=== PATIENT | female | born 1945 | race Caucasian/White ===

== ENCOUNTER 2016-09-02 09:57 | Outpatient (CLI) | payer MEDICARE, BC | END 2016-09-02 09:58 | disposition home or self-care (01) | DX: M85.89 Other specified disorders of bone density and structure, multiple sites (principal) ==

== ENCOUNTER 2016-10-06 08:05 | Outpatient (CLI) | payer MEDICARE, BC | END 2016-10-06 08:06 | disposition home or self-care (01) | DX: D64.9 Anemia, unspecified (principal); E03.9 Hypothyroidism, unspecified; E04.2 Nontoxic multinodular goiter; K21.9 Gastro-esophageal reflux disease without esophagitis ==

== ENCOUNTER 2016-10-22 14:51 | Outpatient (CLI) | payer MEDICARE, BC | END 2016-10-22 14:52 | disposition home or self-care (01) | DX: I80.9 Phlebitis and thrombophlebitis of unspecified site (principal) ==

== ENCOUNTER 2016-11-17 13:09 | Outpatient (CLI) | payer MEDICARE, BC | END 2016-11-17 13:10 | disposition home or self-care (01) | DX: M17.12 Unilateral primary osteoarthritis, left knee (principal) ==

== ENCOUNTER 2017-02-27 07:24 | Outpatient (CLI) | payer MEDICARE, BC | END 2017-02-27 07:25 | disposition home or self-care (01) | LOC: LAB.WCP 07:24 | PROVIDERS: ATTEND Physician Assistant Medical | DX: N39.0 Urinary tract infection, site not specified (principal) | CPT/HCPCS: 87086 ==

== ENCOUNTER 2017-03-18 12:29 | Outpatient (CLI) | payer MEDICARE, BC ==
--- NOTE | 2017-03-19 12:47 | MRI Report ---
EXAM: RIGHT KNEE MRI WITHOUT CONTRAST EXAM DATE: 03/18/2017 01:11 PM. CLINICAL HISTORY: Trauma to the right knee 5 weeks ago. Posterior and medial pain. COMPARISON: None. TECHNIQUE: Multiplanar, multisequence T1-weighted and fluid-sensitive sequences of the knee without c ontrast. Other: None. FINDINGS: Bones: There is a subchondral low T1, high T2 signal line in the anteromedial aspect of the medial ti bial condyle and marked surrounding marrow edema consistent with a nondisplaced fracture. There are s mall foci of high T2 signal in the subchondral bone of the patella and femoral trochlea consistent wi th degenerative change.. Articular Cartilage: There is moderate thinning of the hyaline cartilage of the patella and femoral t rochlea. There is mild thinning of the medial compartment cartilage. There is minimal surface irregul arity of the lateral compartment cartilage. Medial Meniscus: The medial meniscus is intact. Lateral Meniscus: The lateral meniscus is intact. Cruciate Ligaments: The anterior and posterior cruciate ligaments are intact. Collateral Ligaments: The medial collateral and lateral collateral ligamentous structures are intact. Tendons: The quadriceps and patellar tendon appear unremarkable. There is thickening and increased T2 signal in the semimembranosus tendon suggestive of tendinosis. Musculature: No edema or fatty atrophy. Other: Small joint effusion. Fluid has leaked into the soft tissues of the calf consistent with a norma ciarra Kelley's cyst.. No loose bodies. The medial and lateral retinacula are intact. The subcutaneous tissues and fat pads are unremarkable. IMPRESSION: 1. Nondisplaced fracture of the anteromedial aspect of the medial tibial condyle. 2. Joint effusion with a leaking Kelley's cyst. 3. Findings suggestive of tendinosis of the semimembranosus. [facility] MUSCULOSKELETAL RADIOLOGY SECTION Referring Provider Line: [phone] SITE ID: [id number]
== END 2017-03-18 12:30 | disposition home or self-care (01) ==
LOC: DI 12:29
PROVIDERS: ATTEND Physician Assistant Medical
DX: S82.134A Nondisplaced fracture of medial condyle of right tibia, initial encounter for closed fracture (principal); M25.461 Effusion, right knee; M71.21 Synovial cyst of popliteal space [Baker], right knee

== ENCOUNTER 2017-08-29 08:00 | Outpatient (CLI) | payer MEDICARE, BC ==
[2017-08-29 12:43] LABS: BASOPHILS % (AUTO) 1.3 %; EOSINOPHILS # (AUTO) 0.1 10^3/uL (0.0-0.7); EOSINOPHILS % (AUTO) 3.9 %; HGB - HEMOGLOBIN 12.7 g/dL (12.0-16.0); LYMPHOCYTES # (AUTO) 0.8 10^3/uL (1.5-3.5); LYMPHOCYTES % (AUTO) 21.9 %; MEAN CORPUSCULAR HEMOGLOBIN 29.3 pg (27.0-31.0); MEAN CORPUSCULAR VOLUME 81.4 fL (81.0-99.0); MEAN PLATELET VOLUME 8.5 fL (7.9-10.8); MONOCYTES # (AUTO) 0.4 10^3/uL (0.0-1.0); MONOCYTES % (AUTO) 10.8 %; NEUTROPHILS # (AUTO) 2.2 10^3/uL (1.5-6.6); NEUTROPHILS % (AUTO) 62.1 %; PLT - PLATELET COUNT 162 10^3/uL (130-450); RED BLOOD COUNT 4.33 10^6/uL (4.20-5.40); RED CELL DISTRIBUTION WIDTH 13.7 % (12.0-15.0); WHITE BLOOD COUNT 3.5 x10^3/uL (4.8-10.8)
[2017-08-29 13:13] LABS: ALBUMIN/GLOBULIN RATIO 1.3 (1.0-2.2); ALKALINE PHOSPHATASE 72 IU/L (42-121); ALT ALANINE AMINOTRANSFERASE 14 IU/L (10-60); AST ASPARTATE AMINOTRANSFERASE 18 IU/L (10-42); BILIRUBIN,TOTAL 0.6 mg/dL (0.2-1.0); BUN - BLOOD UREA NITROGEN 17 mg/dL (6-20); CALCIUM 8.6 mg/dL (8.5-10.3); CARBON DIOXIDE - CO2 27 mmol/L (21-32); CHLORIDE 105 mmol/L (101-111); CHOL/HDL RATIO 2.2 (<4.4); CHOLESTEROL 140 mg/dL; CREATININE 0.7 mg/dL (0.4-1.0); GFR - MDRD 82 (>89); GLUCOSE 98 mg/dL (70-100); HDL CHOLESTEROL 65 mg/dL; LDL CHOLESTEROL,CALCULATED 65 mg/dL; SODIUM 137 mmol/L (135-145); TOTAL PROTEIN 7.2 g/dL (6.7-8.2); VLDL CHOLESTEROL 10 mg/dL
== END 2017-08-29 08:01 | disposition home or self-care (01) ==
LOC: LAB.WCP 08:00
PROVIDERS: ATTEND Family Medicine
DX: I10 Essential (primary) hypertension (principal); D64.9 Anemia, unspecified
CPT/HCPCS: 36415; 80053; 80061; 85025

== ENCOUNTER 2017-10-05 08:00 | Outpatient (CLI) | payer MEDICARE, BC ==
[2017-10-05 18:44] LABS: BASOPHILS % (AUTO) 1.4 %; EOSINOPHILS # (AUTO) 0.2 10^3/uL (0.0-0.7); EOSINOPHILS % (AUTO) 5.7 %; HGB - HEMOGLOBIN 12.7 g/dL (12.0-16.0); LYMPHOCYTES # (AUTO) 0.9 10^3/uL (1.5-3.5); LYMPHOCYTES % (AUTO) 24.3 %; MEAN CORPUSCULAR HEMOGLOBIN 28.5 pg (27.0-31.0); MEAN CORPUSCULAR HGB CONC 32.5 g/dL (32.0-36.0); MEAN CORPUSCULAR VOLUME 87.8 fL (81.0-99.0); MEAN PLATELET VOLUME 9.3 fL (7.9-10.8); MONOCYTES # (AUTO) 0.4 10^3/uL (0.0-1.0); MONOCYTES % (AUTO) 11.3 %; NEUTROPHILS % (AUTO) 57.3 %; PLT - PLATELET COUNT 177 10^3/uL (130-450); RED BLOOD COUNT 4.47 10^6/uL (4.20-5.40); RED CELL DISTRIBUTION WIDTH 14.3 % (12.0-15.0); WHITE BLOOD COUNT 3.6 x10^3/uL (4.8-10.8)
[2017-10-05 18:58] LABS: ALBUMIN 3.9 g/dL (3.2-5.5); ALBUMIN/GLOBULIN RATIO 1.3 (1.0-2.2); ALKALINE PHOSPHATASE 76 IU/L (42-121); ALT ALANINE AMINOTRANSFERASE 15 IU/L (10-60); AST ASPARTATE AMINOTRANSFERASE 23 IU/L (10-42); BILIRUBIN,TOTAL 0.7 mg/dL (0.2-1.0); BUN - BLOOD UREA NITROGEN 11 mg/dL (6-20); CALCIUM 8.4 mg/dL (8.5-10.3); CARBON DIOXIDE - CO2 29 mmol/L (21-32); CHLORIDE 102 mmol/L (101-111); CREATININE 0.8 mg/dL (0.4-1.0); GFR - MDRD 70 (>89); GLUCOSE 112 mg/dL (70-100); SODIUM 139 mmol/L (135-145); TOTAL PROTEIN 6.9 g/dL (6.7-8.2)
== END 2017-10-05 08:01 | disposition home or self-care (01) ==
LOC: LAB.WCP 08:00
PROVIDERS: ATTEND Family Medicine
DX: R06.00 Dyspnea, unspecified (principal)
CPT/HCPCS: 36415; 80053; 84443; 84484; 85025; 85379

== ENCOUNTER 2017-10-06 13:22 | Outpatient (CLI) | payer MEDICARE, BC ==
[2017-10-06] MEDS ORDERED: IOPAMIDOL-300 100 ML VIAL ONE (15:18)
[2017-10-06] MEDS ORDERED: IOPAMIDOL-300 100 ML VIAL IVP ONE (16:00)
--- NOTE | 2017-10-06 16:27 | CT Report ---
EXAM: CT ANGIOGRAM CHEST EXAM DATE: 10/06/2017 03:47 PM. CLINICAL HISTORY: CHEST PAIN. Exertional dyspnea for one week. COMPARISON: None. TECHNIQUE: Routine helical imaging was performed through the chest in the pulmonary arterial phase. I V Contrast: 80 cc of Isovue 300. Reconstructions: Coronal 3-D MIP reconstructions.Sagittal and berkowitz l. In accordance with CT protocol optimization, one or more of the following dose reduction techniques w ere utilized for this exam: automated exposure control, adjustment of mA and/or KV based on patient s ize, or use of iterative reconstructive technique. FINDINGS: Pulmonary Arteries: Diagnostic quality: Adequate through the segmental arteries. No evidence for acute or chronic pulmona ry emboli. RV/LV is within normal limits. There is no interventricular septal bowing. There is reflux of contras t material in the IVC. Lungs/Pleura: 4 mm Right Upper Lobe Nodule, Image 32 Series 5. 5 mm Right Lower Lobe Nodule, Image 66 Series 5. No consolidation or edema. No effusions or pneumothorax. Mediastinum: Minimal aortic and coronary artery calcification. No cardiac enlargement or adenopathy. Thoracic Aorta: Unremarkable. Upper Abdomen: Unremarkable. Other: 6 mm right thyroid nodule noted. IMPRESSION: 1. No pulmonary emboli. 2. No aortic aneurysm. 3. 2 right-sided pulmonary nodules noted. Recommend follow-up of the described nodule(s) according to the following guidelines: Fleischner Society Recommendations 2017 MacMahon et al. Radiology 2017 Solid Nodules-Low Risk Patients: <6 mm (single or multiple) - No routine follow-up* Solid Nodules-High Risk Patients: <6 mm (single or multiple) -Optional CT at 12 months* Subsolid nodules: <6 mm (single, GG or part solid) -No routine follow-up [facility] Referring Provider Line: [phone] SITE ID: [id number]
--- NOTE | 2017-10-06 16:58 | Ultrasound Report ---
EXAM: BILATERAL LOWER EXTREMITY VENOUS ULTRASOUND EXAM DATE: 10/06/2017 04:05 PM. CLINICAL HISTORY: Lower extremity swelling. COMPARISON: None. TECHNIQUE: Real-time sonographic vascular imaging was performed by the drop forger helper through the lower extremities utilizing both color-flow and Doppler spectral analysis. Multiple inventory representative static i mages were saved for review. FINDINGS: Right: Common Femoral Vein (CFV): Normal. CFV-GSV Junction: Normal. Profunda Femoral Vein (PFV): Normal. Femoral Vein (FV) Prox: Normal. Femoral Vein (FV) Mid: Normal. Femoral Vein (FV) Dist: Normal. Popliteal Vein: Normal. Posterior Tibial Veins: Normal. Peroneal Veins: Normal. Left: Common Femoral Vein (CFV): Normal. CFV-GSV Junction: Normal. Profunda Femoral Vein (PFV): Normal. Femoral Vein (FV) Prox: Normal. Femoral Vein (FV) Mid: Normal. Femoral Vein (FV) Dist: Normal. Popliteal Vein: Normal. Posterior Tibial Veins: Normal. Peroneal Veins: Normal. Other: None. IMPRESSION: No evidence for deep venous thrombosis bilaterally. [facility] Referring Provider Line: [phone] SITE ID: [id number]
== END 2017-10-06 13:23 | disposition home or self-care (01) ==
LOC: DI 13:22
PROVIDERS: ATTEND Family Medicine
DX: R91.8 Other nonspecific abnormal finding of lung field (principal)
CPT/HCPCS: 71275; 93970; Q9967

== ENCOUNTER 2017-11-21 10:37 | Outpatient (CLI) | payer MEDICARE, BC ==
--- NOTE | 2017-11-22 12:22 | Mammography Report ---
DIGITAL SCREENING MAMMOGRAM: 11/21/2017 CLINICAL INDICATION: A 72-year-old with history of benign left breast biopsy for screening. COMPARISON: 05/2016, 03/2015, 03/2014, 03/2013, 02/2012, 02/2011, 02/2010. TECHNIQUE: Routine CC and MLO projections were obtained of the breasts. FINDINGS: The breasts again demonstrate heterogeneously dense fibroglandular parenchyma bilaterally. Coarse and punctate, typically benign calcifications are present. Postbiopsy changes in the left breast are stable. No suspicious masses, clustered microcalcifications or regions of architectural distortion are identified. IMPRESSION: BENIGN FINDINGS. RECOMMENDATION: Routine annual screening unless otherwise clinically indicated. BIRADS CATEGORY 2 - BENIGN FINDINGS. STANDARD QUALIFYING STATEMENTS: 1. This examination was reviewed with the aid of Computer-Aided Detection (CAD). 2. A negative or benign imaging report should not delay biopsy if clinically suspicious findings are present. Consider surgical consultation if warranted. More than 5% of cancers are not identified by imaging. 3. Dense breasts may obscure an underlying neoplasm. TD: 11/22/2017 12:21
== END 2017-11-21 10:38 | disposition home or self-care (01) ==
LOC: DI 10:37
PROVIDERS: ATTEND Family Medicine
DX: Z12.31 Encounter for screening mammogram for malignant neoplasm of breast (principal)
CPT/HCPCS: 77067

== ENCOUNTER 2017-12-31 20:14 | Emergency (ER) | payer MEDICARE, BC ==
[2017-12-31 20:22] VITALS: BP 158/59
[2017-12-31 20:41] LABS: BILIRUBIN,URINE NEGATIVE (NEGATIVE); GLUCOSE, URINE (UA) NEGATIVE (NEGATIVE); KETONES,URINE (UA) NEGATIVE (NEGATIVE); LEUKOCYTE ESTERASE, URINE MODERATE (NEGATIVE); NITRITE,URINE NEGATIVE (NEGATIVE); OCCULT BLOOD,URINE LARGE (NEGATIVE); PROTEIN,URINE 30 mg/dL (NEGATIVE); UROBILINOGEN,URINE 0.2 (NORMAL) E.U./dL (NORMAL)
[2017-12-31 20:43] LABS: CLARITY,URINE HAZY (CLEAR)
--- NOTE | 2017-12-31 20:44 | ED Physician Documentation ---
PD HPI FEMALE - Stated complaint Stated Complaint: FEMALE - Chief complaint Chief Complaint: UTI - History obtained from History obtained from: Patient - History of Present Illness Timing - onset: Today (72-year-old woman with urinary frequency and dysuria today, she notes no flank pain or nausea or chills.) Review of Systems Constitutional: denies: Fever, Chills GI: denies: Abdominal Pain, Nausea, Vomiting : reports: Dysuria, Frequency, Hematuria PD PAST MEDICAL HISTORY - Past Medical History Cardiovascular: Hypertension, High cholesterol, [place] Endocrine/Autoimmune: HyPOthyroidism - Past Surgical History Past Surgical History: Yes 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 - Present Medications Home Medications: Ambulatory Orders Medication Instructions Recorded Confirmed Aspirin Chewable [St Fritz 81 mg PO DAILY 07/07/13 05/31/16 Aspirin] Atenolol [Tenormin] 25 mg PO DAILY 07/07/13 05/31/16 Levothyroxine Sodium [Levothroid] 75 mcg PO DAILY 07/07/13 05/31/16 Lisinopril 5 mg PO DAILY 07/07/13 05/31/16 Nitroglycerin [Nitrostat] 0.4 mg SL Q5MIN PRN 07/07/13 05/31/16 Cholecalciferol (Vitamin D3) 2,000 unit PO 10/20/13 12/30/14 [Vitamin D-3] Estradiol [Vagifem] 10 mcg VG 10/20/13 12/30/14 Flaxseed Oil [Flax Oil] 1,000 mg PO 10/20/13 12/30/14 Pravastatin Sodium 40 mg PO DAILY 10/20/13 05/31/16 Lidocaine Viscous 2% [Xylocaine 5 ml MM Q4H PRN #1 bottle 05/31/16 Viscous 2%] Omeprazole [PriLOSEC] 20 mg PO DAILY #14 capsule 05/31/16 Cephalexin [Keflex] 500 mg PO QID #20 capsule 12/31/17 Phenazopyridine HCl [Pyridium] 200 mg PO TID #6 tablet 12/31/17 - Allergies Allergies/Adverse Reactions: Allergies Allergy/AdvReac Type Severity Reaction Status Date / Time ibuprofen Allergy Intermediate upset Verified 05/31/16 00:57 stomach - Social History Does the pt smoke?: No Smoking Status: Never smoker Does the pt drink ETOH?: No Does the pt have substance abuse?: No - Immunizations Immunizations are current?: Yes - POLST Patient has POLST: No PD ED PE NORMAL - Vitals Vital signs reviewed: Yes - General General: Alert and oriented X 3, No acute distress - Cardiac Cardiac: RRR, No murmur - Respiratory Respiratory: No respiratory distress, Clear bilaterally - Abdomen Abdomen: Normal bowel sounds, Soft, Non tender - Back Back: Other (She has mild left flank tenderness) - Neuro Neuro: Alert and oriented X 3, Normal speech - Psych Psych: Normal mood, Normal affect Results - Vitals Vitals: Vital Signs - 24 hr 12/31/17 20:20 Temperature 36.5 C Heart Rate 94 Respiratory 18 Rate Blood Pressure 158/59 H O2 Saturation 99 Oxygen O2 Source Room air - Labs Labs: Laboratory Tests 12/31/17 20:20 Urine Color RED/BLOODY Urine Clarity HAZY Urine pH 6.0 Ur Specific [place] 1.020 Urine Protein 30 H Urine Glucose (UA) NEGATIVE Urine Ketones NEGATIVE Urine Occult Blood LARGE H Urine Nitrite NEGATIVE Urine Bilirubin NEGATIVE Urine Urobilinogen 0.2 (NORMAL) Ur Leukocyte Esterase MODERATE H Urine RBC TNTC H Urine WBC >25 H Urine WBC Clumps PRESENT Ur Squamous Epith Cells RARE Squamous Urine Crystals 0-2 Uric Acid Urine Bacteria Rare Ur Microscopic Review INDICATED Urine Culture Comments INDICATED Departure - Departure Disposition: 01 Home, Self Care Clinical Impression: Cystitis, Essential hypertension Condition: Good Record reviewed to determine appropriate education?: Yes Instructions: ED UTI Cystitis Female Prescriptions: Cephalexin [Keflex] 500 mg PO QID #20 capsule Phenazopyridine HCl [Pyridium] 200 mg PO TID #6 tablet Comments: We will culture your urine, the results should be done in 48-72 hours. If an antibiotic change is necessary we will call you. Return if worse in the meantime, especially if you develop increasing flank pain, fevers, or cannot keep down the medication. Discharge Date/Time: 12/31/17 21:05
[2017-12-31] MEDS ORDERED: PHENAZOPYRIDINE 100 MG TABLET PO STA (20:47)
[2017-12-31] MEDS ORDERED: CEPHALEXIN 250 MG Prepack 8 PO ONE (20:52)
[2017-12-31 21:02] LABS: BACTERIA,URINE Rare /HPF (None Seen); RBC,URINE TNTC /HPF (0-5); SQUAMOUS EPITHELIAL CELL,UR RARE Squamous (<= Few); WBC CLUMPS,URINE PRESENT
[2017-12-31 21:03] LABS: CRYSTALS,URINE 0-2 Uric Acid /LPF
== END 2017-12-31 21:05 | disposition home or self-care (01) ==
LOC: ED 20:14
DX: N30.90 Cystitis, unspecified without hematuria (principal); I10 Essential (primary) hypertension; E78.00 Pure hypercholesterolemia, unspecified; I25.2 Old myocardial infarction
CPT/HCPCS: 81001; 87086; 87181; 99283; A9270; 81003

== ENCOUNTER 2018-04-18 13:11 | Emergency (ER) | payer MEDICARE, BC ==
[2018-04-18 13:18] VITALS: BP 129/88
[2018-04-18 13:56] LABS: BILIRUBIN,URINE NEGATIVE (NEGATIVE); GLUCOSE, URINE (UA) NEGATIVE (NEGATIVE); KETONES,URINE (UA) NEGATIVE (NEGATIVE); LEUKOCYTE ESTERASE, URINE SMALL (NEGATIVE); NITRITE,URINE NEGATIVE (NEGATIVE); OCCULT BLOOD,URINE LARGE (NEGATIVE); PROTEIN,URINE 100 mg/dL (NEGATIVE); UROBILINOGEN,URINE 0.2 (NORMAL) E.U./dL (NORMAL)
[2018-04-18 13:57] LABS: CLARITY,URINE CLOUDY (CLEAR)
--- NOTE | 2018-04-18 13:58 | ED Physician Documentation ---
PD HPI FEMALE - Stated complaint Stated Complaint: FEMALE - Chief complaint Chief Complaint: UTI - History obtained from History obtained from: Patient - History of Present Illness Timing - onset: Today Timing - duration: Days (1) Timing - details: Gradual onset Pain level max: 3 Pain level max: 3 Associated symptoms: Dysuria, Urinary frequency. 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 - Present Medications Home Medications: Ambulatory Orders Medication Instructions Recorded Confirmed Aspirin Chewable [St Fritz 81 mg PO DAILY 07/07/13 05/31/16 Aspirin] Atenolol [Tenormin] 25 mg PO DAILY 07/07/13 05/31/16 Levothyroxine Sodium [Levothroid] 75 mcg PO DAILY 07/07/13 05/31/16 Lisinopril 5 mg PO DAILY 07/07/13 05/31/16 Nitroglycerin [Nitrostat] 0.4 mg SL Q5MIN PRN 07/07/13 05/31/16 Cholecalciferol (Vitamin D3) 2,000 unit PO 10/20/13 12/30/14 [Vitamin D-3] Flaxseed Oil [Flax Oil] 1,000 mg PO 10/20/13 12/30/14 Pravastatin Sodium 40 mg PO DAILY 10/20/13 05/31/16 Omeprazole [PriLOSEC] 20 mg PO DAILY #14 capsule 05/31/16 Cephalexin [Keflex] 500 mg PO Q6H #20 capsule 04/18/18 Phenazopyridine HCl [Pyridium] 200 mg PO TID PRN #6 tablet 04/18/18 - Allergies Allergies/Adverse Reactions: Allergies Allergy/AdvReac Type Severity Reaction Status Date / Time ibuprofen Allergy Intermediate upset Verified 04/18/18 13:18 stomach - Social History Does the pt smoke?: No Smoking Status: Never smoker Does the pt drink ETOH?: No Does the pt have substance abuse?: No - Immunizations Immunizations are current?: Yes - POLST Patient has POLST: No PD ED PE NORMAL - Vitals Vital signs reviewed: Yes - General General: Alert and oriented X 3, No acute distress - HEENT HEENT: Moist mucous membranes - Neck Neck: Supple, no meningeal sign - Cardiac Cardiac: RRR - Respiratory Respiratory: No respiratory distress, Clear bilaterally - Abdomen Abdomen: Soft, Non tender, Non distended - Back Back: No CVA TTP - Derm Derm: Warm and dry - Neuro Neuro: Alert and oriented X 3 - Psych Psych: Normal mood, Normal affect Results - Vitals Vitals: Vital Signs - 24 hr 04/18/18 13:15 Temperature 37.1 C Heart Rate 73 Respiratory 16 Rate Blood Pressure 129/88 H O2 Saturation 96 Oxygen O2 Source Room air - Labs Labs: Laboratory Tests 04/18/18 13:30 Urine Color YELLOW Urine Clarity CLOUDY Urine pH 6.0 Ur Specific [place] 1.025 Urine Protein 100 H Urine Glucose (UA) NEGATIVE Urine Ketones NEGATIVE Urine Occult Blood LARGE H Urine Nitrite NEGATIVE Urine Bilirubin NEGATIVE Urine Urobilinogen 0.2 (NORMAL) Ur Leukocyte Esterase SMALL H Urine RBC TNTC H Urine WBC >25 H Ur Squamous Epith Cells NONE SEEN Urine Bacteria Moderate H Ur Microscopic Review INDICATED Urine Culture Comments INDICATED PD MEDICAL DECISION MAKING - ED course Complexity details: reviewed results, considered differential, d/w patient ED course: Patient is a 72-year-old female with a UTI. She is well-appearing, nontoxic. Afebrile. No evidence of pyelonephritis. Will place on antibiotics and follow- up with her doctor. Patient counseled regarding signs and symptoms for which I believe and urgent re-evaluation would be necessary. Patient with good understanding of and agreement to plan and is comfortable going home at this time This document was made in part using voice recognition software. While efforts are made to proofread this document, sound alike and grammatical errors may occur. - Sepsis Event Vital Signs: Vital Signs - 24 hr 04/18/18 13:15 Temperature 37.1 C Heart Rate 73 Respiratory 16 Rate Blood Pressure 129/88 H O2 Saturation 96 Oxygen O2 Source Room air Departure - Departure Disposition: 01 Home, Self Care Clinical Impression: Cystitis Condition: Good Instructions: ED UTI Cystitis Female Follow-Up: Gaurav Valverde MD [Primary Care Provider] - As Needed Prescriptions: Cephalexin [Keflex] 500 mg PO Q6H #20 capsule Phenazopyridine HCl [Pyridium] 200 mg PO TID PRN #6 tablet PRN Reason: dysuria Comments: Take all antibiotics until gone. Return if you worsen. Follow-up with Dr. Valverde if you fail to improve. Discharge Date/Time: 04/18/18 14:10
[2018-04-18 14:13] LABS: BACTERIA,URINE Moderate /HPF (None Seen); RBC,URINE TNTC /HPF (0-5); SQUAMOUS EPITHELIAL CELL,UR NONE SEEN (<= Few)
== END 2018-04-18 14:10 | disposition home or self-care (01) ==
LOC: ED 13:11
DX: N30.90 Cystitis, unspecified without hematuria (principal); I10 Essential (primary) hypertension; E78.00 Pure hypercholesterolemia, unspecified; I25.2 Old myocardial infarction; E03.9 Hypothyroidism, unspecified; Z79.82 Long term (current) use of aspirin
CPT/HCPCS: 81001; 81003; 87086; 99283

== ENCOUNTER 2018-05-15 08:00 | Outpatient (CLI) | payer MEDICARE, BC ==
[2018-05-15 19:33] LABS: BILIRUBIN,URINE NEGATIVE (NEGATIVE); GLUCOSE, URINE (UA) NEGATIVE (NEGATIVE); KETONES,URINE (UA) NEGATIVE (NEGATIVE); LEUKOCYTE ESTERASE, URINE NEGATIVE (NEGATIVE); NITRITE,URINE NEGATIVE (NEGATIVE); OCCULT BLOOD,URINE NEGATIVE (NEGATIVE); PROTEIN,URINE NEGATIVE (NEGATIVE); UROBILINOGEN,URINE 0.2 (NORMAL) E.U./dL (NORMAL)
[2018-05-15 19:55] LABS: BACTERIA,URINE None Seen /HPF (None Seen); CLARITY,URINE CLEAR (CLEAR); RBC,URINE None Seen /HPF (0-5); SQUAMOUS EPITHELIAL CELL,UR NONE SEEN (<= Few)
== END 2018-05-15 08:01 | disposition home or self-care (01) ==
LOC: LAB.R 08:00
PROVIDERS: ATTEND Family Medicine
DX: N39.0 Urinary tract infection, site not specified (principal)
CPT/HCPCS: 81001; 87086

== ENCOUNTER 2018-07-16 08:00 | Outpatient (CLI) | payer MEDICARE, BC ==
[2018-07-16 14:58] LABS: BASOPHILS # (AUTO) 0.1 10^3/uL (0.0-0.1); BASOPHILS % (AUTO) 1.5 %; EOSINOPHILS # (AUTO) 0.2 10^3/uL (0.0-0.7); EOSINOPHILS % (AUTO) 5.1 %; LYMPHOCYTES # (AUTO) 0.9 10^3/uL (1.5-3.5); LYMPHOCYTES % (AUTO) 21.6 %; MEAN CORPUSCULAR HEMOGLOBIN 28.2 pg (27.0-31.0); MEAN CORPUSCULAR HGB CONC 33.3 g/dL (32.0-36.0); MEAN CORPUSCULAR VOLUME 84.8 fL (81.0-99.0); MEAN PLATELET VOLUME 9.3 fL (7.9-10.8); MONOCYTES # (AUTO) 0.4 10^3/uL (0.0-1.0); MONOCYTES % (AUTO) 10.6 %; NEUTROPHILS # (AUTO) 2.6 10^3/uL (1.5-6.6); NEUTROPHILS % (AUTO) 61.2 %; PLT - PLATELET COUNT 163 10^3/uL (130-450); RED CELL DISTRIBUTION WIDTH 14.8 % (12.0-15.0); WHITE BLOOD COUNT 4.2 x10^3/uL (4.8-10.8)
[2018-07-16 15:06] LABS: ALBUMIN 3.8 g/dL (3.2-5.5); ALBUMIN/GLOBULIN RATIO 1.2 (1.0-2.2); ALKALINE PHOSPHATASE 62 IU/L (42-121); ALT ALANINE AMINOTRANSFERASE 24 IU/L (10-60); AST ASPARTATE AMINOTRANSFERASE 22 IU/L (10-42); BUN - BLOOD UREA NITROGEN 16 mg/dL (6-20); CALCIUM 8.6 mg/dL (8.5-10.3); CARBON DIOXIDE - CO2 29 mmol/L (21-32); CHLORIDE 105 mmol/L (101-111); CHOL/HDL RATIO 1.9 (<4.4); CHOLESTEROL 120 mg/dL; CREATININE 0.5 mg/dL (0.4-1.0); GFR - MDRD 120 (>89); GLUCOSE 94 mg/dL (70-100); HDL CHOLESTEROL 64 mg/dL; LDL CHOLESTEROL,CALCULATED 48 mg/dL; LDL/HDL RATIO 0.8 (<4.4); SODIUM 137 mmol/L (135-145); TOTAL PROTEIN 7.1 g/dL (6.7-8.2); VLDL CHOLESTEROL 8 mg/dL
== END 2018-07-16 23:59 | disposition home or self-care (01) ==
LOC: LAB.WCP 08:00
PROVIDERS: ATTEND Family Medicine
DX: I10 Essential (primary) hypertension (principal); E03.9 Hypothyroidism, unspecified
CPT/HCPCS: 36415; 80053; 80061; 83721; 84443; 85025

== ENCOUNTER 2018-09-04 09:56 | Outpatient (CLI) | payer MEDICARE, BC ==
--- NOTE | 2018-09-05 09:54 | DEXA Report ---
Reason: ASYPMTOMATIC POSTMENOPAUSAL STATUS Procedure Date: 09/04/2018 Accession Number: [id number] / [id number] Procedure: DEX - Dexa Spine and/or Hip CPT Code: FULL RESULT: EXAM: Dexa Spine and/or Hip DATE: 09/04/2018 11:02 AM CLINICAL HISTORY: ASYPMTOMATIC POSTMENOPAUSAL STATUS TECHNIQUE: Dual energy x-ray absorptiometry (DXA) was performed on a [employer] Autom[employer] System. Regions measured are the AP Spine, femoral neck, and if needed forearm. COMPARISON: 09/02/2016. In accordance with the International Society for Clinical Densitometry (ISCD) guidelines, data from previous exams may be reanalyzed using current recommendations and techniques. This is done to allow a more accurate basis for comparison with the current study. FINDINGS: The data for the lumbar spine is as follows: BMD (g/cm/cm) T-SCORE Z-SCORE REGION L1 1.084 -0.4 0.9 L2 0.986 -1.8 -0.5 L3 0.971 -1.9 -0.6 L4 1.075 -1.0 0.2 TOTAL 1.030 -1.3 0.0 NOTE: All evaluable vertebrae are used for classification The data for the hip is as follows: BMD (g/cm/cm) T-SCORE Z-SCORE REGION Neck 0.861 -1.3 0.3 TOTAL 0.785 -1.8 -0.4 NOTE: The femoral neck or total proximal femur, whichever is lowest, is used for classification. DXA RESULTS SUMMARY: Spine SCAN DATE [age]GE BMD CHANGE VS CHANGE VS PREVIOUS PREVIOUS % 09[birth year]04/2018 [age] 1.030 -0.012 -1.2 09/02/2016 [age] 1.042 * Denotes significant change at the 95% confidence level. Denotes dissimilar scan types or analysis methods. DXA RESULTS SUMMARY: Hip SCAN DATE AGE BMD CHANGE VS CHANGE VS PREVIOUS PREVIOUS % 09[birth year]04/2018 [age] 0.785 0.001 0.1 09/02[birth year]2016 [age] 0[age]784 * Denotes significant change at the 95% confidence level. Denotes dissimilar scan types or analysis methods. IMPRESSION: THE WHO CLASSIFICATION BASED ON THE INTERNATIONAL REFERENCE STANDARD IS OSTEOPENIA. THE FRACTURE RISK IS INCREASED. RECOMMENDATION: Patients with diagnosis of osteoporosis or osteopenia should have regular bone mineral density assessment. For those eligible for Medicare, routine testing is allowed once every 2 years. Testing frequency can be increased for patients who have rapidly progressing disease or for those who are receiving medical therapy to restore bone mass. COMMENT: World Health Organization (WHO) definitions for osteoporosis and osteopenia: NORMAL BMD: T-score at -1.0 or higher, fracture risk is low OSTEOPENIA BMD: T-score between -1.0 and -2.5, fracture risk is increased. OSTEOPOROSIS BMD: T-score at -2.5 or lower, fracture risk is high. National Osteoporosis Foundation recommends: 1. Obtain adequate dietary calcium (at least 1200 mg per day) and vitamin D (400-800 international units per day). 2. Participate, as appropriate, in regular weightbearing and muscle-strengthening exercise. 3. Avoid tobacco use and reduce alcohol and caffeine intake. 4. For more detailed information see the website at www.NOF.org.
== END 2018-09-04 09:57 | disposition home or self-care (01) ==
LOC: DI 09:56
PROVIDERS: ATTEND Family Medicine
DX: M85.89 Other specified disorders of bone density and structure, multiple sites (principal)
CPT/HCPCS: 77080

== ENCOUNTER 2018-12-05 08:30 | Outpatient (CLI) | payer MEDICARE, BC ==
--- NOTE | 2018-12-05 09:04 | Mammography Report ---
Reason: SCREENING MAMMO Procedure Date: 12/05/2018 Accession Number: [id number] / [id number] Procedure: MGN - Screening Mammo Dig Bilat CPT Code: FULL RESULT: EXAM: Screening Mammo Dig Bilat DATE: 12/05/2018 8:54 AM CLINICAL HISTORY: Screening encounter. History of early menses and benign left breast biopsy. TECHNIQUE: (B) - Bilateral CC and MLO views were obtained. COMPARISON: 11/21/2017 through 04/11/2014. PARENCHYMAL PATTERN: (D) - The breast(s) demonstrate(s) heterogeneously dense fibroglandular parenchyma. FINDINGS: There are coarse typically benign calcifications. There are no suspicious masses, calcifications, or areas of distortion. IMPRESSION: Benign findings. BI-RADS category 2. RECOMMENDATION: (ANNUAL) - Recommend routine annual screening mammography. BI-RADS CATEGORY: (2) - Benign Findings. STANDARD QUALIFYING STATEMENTS: 1. This examination was not reviewed with the aid of Computer-Aided Detection (CAD). 2. A negative or benign imaging report should not preclude biopsy if clinically suspicious findings are present. 3. Dense breasts may obscure an underlying neoplasm. 4. This examination was reviewed without the aid of 3D breast imaging (tomosynthesis).
== END 2018-12-05 08:31 | disposition home or self-care (01) ==
LOC: DI.N 08:30
DX: Z12.31 Encounter for screening mammogram for malignant neoplasm of breast (principal)
CPT/HCPCS: 77067

== ENCOUNTER 2019-01-14 09:48 | Outpatient (CLI) | payer MEDICARE, BC ==
[2019-01-14 13:08] LABS: ALBUMIN 3.9 g/dL (3.2-5.5); ALBUMIN/GLOBULIN RATIO 1.1 (1.0-2.2); CALCIUM 8.8 mg/dL (8.5-10.3); CREATININE 0.7 mg/dL (0.4-1.0); TOTAL PROTEIN 7.3 g/dL (6.7-8.2)
[2019-01-14 13:13] LABS: THYROID STIMULATING HORMONE 0.86 uIU/mL (0.34-5.60)
[2019-01-14 13:17] LABS: FREE T4 (FREE THYROXINE) 1.3 ng/dL (0.58-1.64)
== END 2019-01-14 09:49 | disposition home or self-care (01) ==
LOC: LAB.WCP 09:48
PROVIDERS: ATTEND Family Medicine
DX: E04.2 Nontoxic multinodular goiter (principal)
CPT/HCPCS: 36415; 80053; 84439; 84443

== ENCOUNTER 2019-02-27 09:19 | Outpatient (CLI) | payer MEDICARE, BC ==
[~2019-02-27 09:19] MED LIST: ALBUTEROL NEB 2.5 MG/3 ML INH SCH
== END 2019-02-27 09:20 | disposition home or self-care (01) ==
LOC: RT 09:19
PROVIDERS: ATTEND Family Medicine
DX: R06.00 Dyspnea, unspecified (principal)
CPT/HCPCS: 94010; 94727

== ENCOUNTER 2019-04-10 08:00 | Outpatient (CLI) | payer MEDICARE, BC | END 2019-04-10 23:59 | LOC: LAB.R 08:00 | PROVIDERS: ATTEND Physician Assistant | DX: R39.15 Urgency of urination (principal) | CPT/HCPCS: 87086; 87181 ==

== ENCOUNTER 2019-07-15 08:48 | Outpatient (CLI) | payer MEDICARE, BC ==
[2019-07-15 14:36] LABS: BASOPHILS % (AUTO) 0.5 %; EOSINOPHILS # (AUTO) 0.1 10^3/uL (0.0-0.7); EOSINOPHILS % (AUTO) 3.2 %; HGB - HEMOGLOBIN 13.3 g/dL (12.0-16.0); LYMPHOCYTES # (AUTO) 0.9 10^3/uL (1.5-3.5); LYMPHOCYTES % (AUTO) 23.5 %; MEAN CORPUSCULAR HEMOGLOBIN 29.2 pg (27.0-31.0); MEAN CORPUSCULAR HGB CONC 31.2 g/dL (32.0-36.0); MEAN CORPUSCULAR VOLUME 93.4 fL (81.0-99.0); MEAN PLATELET VOLUME 11.5 fL (7.9-10.8); MONOCYTES # (AUTO) 0.4 10^3/uL (0.0-1.0); MONOCYTES % (AUTO) 11.6 %; NEUTROPHILS # (AUTO) 2.3 10^3/uL (1.5-6.6); NEUTROPHILS % (AUTO) 61.2 %; PLT - PLATELET COUNT 202 10^3/uL (130-450); RED BLOOD COUNT 4.56 10^6/uL (4.20-5.40); WHITE BLOOD COUNT 3.8 x10^3/uL (4.8-10.8)
[2019-07-15 14:50] LABS: ALBUMIN 4.2 g/dL (3.2-5.5); ALBUMIN/GLOBULIN RATIO 1.2 (1.0-2.2); ALKALINE PHOSPHATASE 68 IU/L (42-121); ALT ALANINE AMINOTRANSFERASE 19 IU/L (10-60); AST ASPARTATE AMINOTRANSFERASE 21 IU/L (10-42); BILIRUBIN,TOTAL 1.3 mg/dL (0.2-1.0); BUN - BLOOD UREA NITROGEN 20 mg/dL (6-20); CALCIUM 8.9 mg/dL (8.5-10.3); CARBON DIOXIDE - CO2 29 mmol/L (21-32); CHLORIDE 103 mmol/L (101-111); CHOL/HDL RATIO 2.2 (<4.4); CHOLESTEROL 146 mg/dL; CREATININE 0.6 mg/dL (0.4-1.0); GFR - MDRD 97 (>89); GLUCOSE 98 mg/dL (70-100); HDL CHOLESTEROL 66 mg/dL; LDL CHOLESTEROL,CALCULATED 71 mg/dL; LDL/HDL RATIO 1.1 (<4.4); SODIUM 141 mmol/L (135-145); TOTAL PROTEIN 7.8 g/dL (6.7-8.2); VLDL CHOLESTEROL 9 mg/dL
[2019-07-15 14:58] LABS: THYROID STIMULATING HORMONE 0.62 uIU/mL (0.34-5.60)
[2019-07-15 15:02] LABS: FREE T4 (FREE THYROXINE) 1.17 ng/dL (0.58-1.64)
== END 2019-07-15 23:59 | disposition home or self-care (01) ==
LOC: LAB.WCP 08:48
PROVIDERS: ATTEND Family Medicine
DX: I48.91 Unspecified atrial fibrillation (principal); I25.10 Atherosclerotic heart disease of native coronary artery without angina pectoris; E04.2 Nontoxic multinodular goiter
CPT/HCPCS: 36415; 80053; 80061; 83721; 84439; 84443; 85025

== ENCOUNTER 2019-07-25 15:47 | Outpatient (CLI) | payer MEDICARE, BC ==
--- NOTE | 2019-07-26 10:02 | XRAY Report ---
Reason: LOW BACK PAIN Procedure Date: 07/25/2019 Accession Number: [id number] / [id number] Procedure: WCP - Lumbar Spine 2 View CPT Code: Final Report FULL RESULT: EXAM: LUMBOSACRAL SPINE RADIOGRAPHY EXAM DATE: 07/25/2019 03:47 PM. CLINICAL HISTORY: Low back pain. COMPARISONS: None. TECHNIQUE: 2 views. FINDINGS: Alignment: Minimal probable degenerative anterolisthesis of L5 on L6. Mild levoscoliosis centered at L4. Bones: Considered 6 [id number] lumbar vertebral bodies, anatomic variant. No fractures or bone lesions. Degenerative changes: Moderate diffuse disk level degenerative changes throughout the lumbar spine. Moderate facet DJD bilaterally. Moderate right hip degenerative changes. Soft Tissues: Normal. The visualized bowel gas pattern is normal. IMPRESSION: 1. Likely anatomic variant with 6 lumbar type vertebral bodies. 2. Moderate diffuse disk level degenerative changes. 3. Mild levoscoliosis. [facility]
== END 2019-07-25 23:59 | disposition home or self-care (01) ==
LOC: DI.WCP 15:47
PROVIDERS: ATTEND Family Medicine
DX: M51.37 Other intervertebral disc degeneration, lumbosacral region (principal); M41.86 Other forms of scoliosis, lumbar region
CPT/HCPCS: 72100

== ENCOUNTER 2019-09-05 17:28 | Emergency (ER) | payer MEDICARE, BC ==
[2019-09-05 17:37] VITALS: BP 176/86
--- NOTE | 2019-09-05 17:46 | ED Physician Documentation ---
PD HPI FEMALE - Stated complaint Stated Complaint: FEMALE - Chief complaint Chief Complaint: UTI - History obtained from History obtained from: Patient - History of Present Illness Timing - onset: Yesterday Timing - duration: Days (2) Timing - details: Abrupt onset, Still present Associated symptoms: Dysuria, Urinary frequency Similar symptoms before: Diagnosis (UTI) Review of Systems Constitutional: denies: Fever, Chills GI: denies: Abdominal Pain, Nausea : reports: Dysuria, Frequency Musculoskeletal: denies: Back pain PD PAST MEDICAL HISTORY - Past Medical History Cardiovascular: Hypertension, High cholesterol, [place] Endocrine/Autoimmune: HyPOthyroidism - Past Surgical History Past Surgical History: Yes 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 - Present Medications Home Medications: Ambulatory Orders Medication Instructions Recorded Confirmed Aspirin Chewable [St Fritz 81 mg PO DAILY 07/07/13 05/31/16 Aspirin] Levothyroxine Sodium [Levothroid] 75 mcg PO DAILY 07/07/13 05/31/16 Nitroglycerin [Nitrostat] 0.4 mg SL Q5MIN PRN 07/07/13 05/31/16 atenoloL [Tenormin] 25 mg PO DAILY 07/07/13 05/31/16 lisinopriL [Lisinopril] 5 mg PO DAILY 07/07/13 05/31/16 Cholecalciferol (Vitamin D3) 2,000 unit PO 10/20/13 12/30/14 [Vitamin D-3] Flaxseed Oil [Flax Oil] 1,000 mg PO 10/20/13 12/30/14 Pravastatin Sodium 40 mg PO DAILY 10/20/13 05/31/16 Omeprazole [PriLOSEC] 20 mg PO DAILY #14 capsule 05/31/16 Cephalexin [Keflex] 500 mg PO Q6H #20 capsule 04/18/18 Phenazopyridine HCl [Pyridium] 200 mg PO TID PRN #6 tablet 04/18/18 Phenazopyridine HCl [Pyridium] 100 mg PO TID PRN #15 tablet 09/05/19 Sulfamethox/Trimeth 800/160 1 each PO BID #14 tablet 09/05/19 [Bactrim Ds 800/160] - Allergies Allergies/Adverse Reactions: Allergies Allergy/AdvReac Type Severity Reaction Status Date / Time ibuprofen Allergy Intermediate upset Verified 09/05/19 17:34 stomach - Social History Does the pt smoke?: No Smoking Status: Never smoker Does the pt drink ETOH?: No Does the pt have substance abuse?: No - Immunizations Immunizations are current?: Yes - POLST Patient has POLST: No PD ED PE NORMAL - Vitals Vital signs reviewed: Yes - General General: Alert and oriented X 3, No acute distress, Well developed/nourished - Female Female : Deferred - Back Back: No CVA TTP - Derm Derm: Normal color, Warm and dry - Neuro Neuro: Alert and oriented X 3, No motor deficit, Normal speech Results - Vitals Vitals: Vital Signs - 24 hr 09/05/19 17:34 Temperature 37 C Heart Rate 68 Respiratory 17 Rate Blood Pressure 176/86 H O2 Saturation 96 Oxygen O2 Source Room air - Labs Labs: Laboratory Tests 09/05/19 17:49 Urine Color YELLOW Urine Clarity SL. CLOUDY Urine pH 6.0 Ur Specific [place] 1.020 Urine Protein 30 H Urine Glucose (UA) NEGATIVE Urine Ketones NEGATIVE Urine Occult Blood LARGE H Urine Nitrite NEGATIVE Urine Bilirubin NEGATIVE Urine Urobilinogen 0.2 (NORMAL) Ur Leukocyte Esterase MODERATE H Urine RBC TNTC H Urine WBC >25 H Urine WBC Clumps PRESENT Ur Squamous Epith Cells RARE Squamous Urine Bacteria None Seen Ur Microscopic Review INDICATED Urine Culture Comments INDICATED PD MEDICAL DECISION MAKING - ED course Complexity details: considered differential, d/w patient Departure - Departure Disposition: 01 Home, Self Care Clinical Impression: Urinary tract infection Qualifiers: Urinary tract infection type: site unspecified Hematuria presence: with hematuria Qualified Code(s): N39.0 - Urinary tract infection, site not specified Condition: Stable Record reviewed to determine appropriate education?: Yes Instructions: ED UTI Cystitis Female Follow-Up: Gaurav Valverde MD [Primary Care Provider] - Prescriptions: Phenazopyridine HCl [Pyridium] 100 mg PO TID PRN #15 tablet PRN Reason: Abdominal Pain Sulfamethox/Trimeth 800/160 [Bactrim Ds 800/160] 1 each PO BID #14 tablet Comments: Stay well-hydrated. Tylenol if needed for pains. Phenazopyridine can help with urinary discomfort. I will turn your annual orange-colored so not to worry. Bactrim antibiotic twice daily as directed. The culture will result in couple of days and will call you if we need to modify the antibiotic choice. Recheck if not improving well over the next couple of days and return sooner if worse. Discharge Date/Time: 09/05/19 18:42
[2019-09-05 17:57] LABS: BILIRUBIN,URINE NEGATIVE (NEGATIVE); GLUCOSE, URINE (UA) NEGATIVE (NEGATIVE); KETONES,URINE (UA) NEGATIVE (NEGATIVE); LEUKOCYTE ESTERASE, URINE MODERATE (NEGATIVE); NITRITE,URINE NEGATIVE (NEGATIVE); OCCULT BLOOD,URINE LARGE (NEGATIVE); PROTEIN,URINE 30 mg/dL (NEGATIVE); UROBILINOGEN,URINE 0.2 (NORMAL) E.U./dL (NORMAL)
[2019-09-05] MEDS ORDERED: PHENAZOPYRIDINE 100 MG TABLET PO STA (18:22)
[2019-09-05] MEDS ORDERED: SULFAMETH/TRIMETH DS 800/160 MG TABLET PO STA (18:22)
[2019-09-05 18:30] LABS: CLARITY,URINE SL. CLOUDY (CLEAR)
[2019-09-05 18:40] LABS: BACTERIA,URINE None Seen /HPF (None Seen); RBC,URINE TNTC /HPF (0-5); SQUAMOUS EPITHELIAL CELL,UR RARE Squamous (<= Few); WBC CLUMPS,URINE PRESENT
== END 2019-09-05 18:42 | disposition home or self-care (01) ==
LOC: ED 17:28
DX: N39.0 Urinary tract infection, site not specified (principal); I10 Essential (primary) hypertension; Z79.82 Long term (current) use of aspirin
CPT/HCPCS: 81001; 87086; 99282; 99283; A9270; 81003

== ENCOUNTER 2019-09-13 13:33 | Emergency (ER) | payer MEDICARE, BC ==
[2019-09-13 14:05] LABS: BASOPHILS % (AUTO) 0.5 %; EOSINOPHILS # (AUTO) 0.2 10^3/uL (0.0-0.7); EOSINOPHILS % (AUTO) 3.8 %; HGB - HEMOGLOBIN 12.9 g/dL (12.0-16.0); LYMPHOCYTES # (AUTO) 0.6 10^3/uL (1.5-3.5); LYMPHOCYTES % (AUTO) 15.2 %; MEAN CORPUSCULAR HEMOGLOBIN 30.3 pg (27.0-31.0); MEAN CORPUSCULAR HGB CONC 32.3 g/dL (32.0-36.0); MEAN CORPUSCULAR VOLUME 93.7 fL (81.0-99.0); MEAN PLATELET VOLUME 10.7 fL (7.9-10.8); MONOCYTES # (AUTO) 0.5 10^3/uL (0.0-1.0); MONOCYTES % (AUTO) 12.2 %; NEUTROPHILS # (AUTO) 2.7 10^3/uL (1.5-6.6); PLT - PLATELET COUNT 135 10^3/uL (130-450); RED BLOOD COUNT 4.26 10^6/uL (4.20-5.40); RED CELL DISTRIBUTION WIDTH 13.4 % (12.0-15.0); WHITE BLOOD COUNT 3.9 x10^3/uL (4.8-10.8)
[2019-09-13 14:15] LABS: ALBUMIN/GLOBULIN RATIO 1.2 (1.0-2.2); BILIRUBIN,TOTAL 0.7 mg/dL (0.2-1.0); CALCIUM 8.6 mg/dL (8.5-10.3); CREATININE 0.8 mg/dL (0.4-1.0); MAGNESIUM 2.2 mg/dL (1.7-2.8); TOTAL PROTEIN 7.4 g/dL (6.7-8.2)
[2019-09-13 14:29] LABS: DIFFERENTIAL COMMENT MANUAL=AUTO DIFF
[2019-09-13 14:36] LABS: PLATELET ESTIMATE, MANUAL NORMAL (130-450,000) (NORMAL); PLATELET MORPHOLOGY NORMAL APPEARANCE (NORMAL); RBC MORPHOLOGY (MULTIPLE) NORMAL APPEARANCE (NORMAL)
[2019-09-13 15:04] VITALS: BP 122/63
--- NOTE | 2019-09-13 15:42 | ED Physician Documentation ---
PD HPI CHEST PAIN - Stated complaint Stated Complaint: RAPID HEARTBEAT/SWEAT - Chief complaint Chief Complaint: Cardiac - History obtained from History obtained from: Patient - History of Present Illness Timing - onset: How many hours ago (2) Timing - onset during: Light activity Timing - details: Abrupt onset. No: Still present (The patient states she was doing some moderate activity of cleaning the house and moving some objects when she had an onset of some chest pain and pressure associated with a feeling of fast heart rate and sweating and lightheadedness. This lasted 20 or 30 minutes. It was continuing on route to the hospital but was improved by the time she arrived here. She states she is feeling better now with very slight dyspnea s till remaining. The chest pain has resolved. She states she had had a remote history of IA in the past several years ago and it did feel similar to that. She has not had exertional related chest pain or dyspnea recently prior to today. She had a prior history of atrial fibrillation episodically but states the symptoms are more than she had had it other times.) Quality: Pressure, Tightness, Aching, Like prior ACS Location: Substernal Radiation: Back Associated symptoms: Shortness of air, Diaphoresis, Feeling faint / dizzy, Palpitations. No: Nausea, Cough Recently seen: Emergency Dept (for UTI symptoms and is on abx with improved symptoms.) Review of Systems Constitutional: denies: Fever, Chills Nose: denies: Rhinorrhea / runny nose, Congestion Throat: denies: Sore throat Cardiac: reports: Chest pain / pressure, Palpitations. denies: Pedal edema, Calf pain Respiratory: reports: Dyspnea. denies: Cough GI: denies: Abdominal Pain, Nausea, Vomiting Skin: denies: Rash, Lesions Neurologic: reports: Generalized weakness. 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 - Present Medications Home Medications: Ambulatory Orders Medication Instructions Recorded Confirmed Aspirin Chewable [St Fritz 81 mg PO DAILY 07/07/13 05/31/16 Aspirin] Levothyroxine Sodium [Levothroid] 75 mcg PO DAILY 07/07/13 05/31/16 Nitroglycerin [Nitrostat] 0.4 mg SL Q5MIN PRN 07/07/13 05/31/16 atenoloL [Tenormin] 25 mg PO DAILY 07/07/13 05/31/16 lisinopriL [Lisinopril] 5 mg PO DAILY 07/07/13 05/31/16 Cholecalciferol (Vitamin D3) 2,000 unit PO 10/20/13 12/30/14 [Vitamin D-3] Flaxseed Oil [Flax Oil] 1,000 mg PO 10/20/13 12/30/14 Pravastatin Sodium 40 mg PO DAILY 10/20/13 05/31/16 Omeprazole [PriLOSEC] 20 mg PO DAILY #14 capsule 05/31/16 Cephalexin [Keflex] 500 mg PO Q6H #20 capsule 04/18/18 Phenazopyridine HCl [Pyridium] 200 mg PO TID PRN #6 tablet 04/18/18 Phenazopyridine HCl [Pyridium] 100 mg PO TID PRN #15 tablet 09/05/19 Sulfamethox/Trimeth 800/160 1 each PO BID #14 tablet 09/05/19 [Bactrim Ds 800/160] - Allergies Allergies/Adverse Reactions: Allergies Allergy/AdvReac Type Severity Reaction Status Date / Time ibuprofen Allergy Intermediate upset Verified 09/05/19 17:34 stomach - Social History Does the pt smoke?: No Smoking Status: Never smoker Does the pt drink ETOH?: No Does the pt have substance abuse?: No - Immunizations Immunizations are current?: Yes - POLST Patient has POLST: No PD ED PE NORMAL - Vitals Vital signs reviewed: Yes - General General: Alert and oriented X 3, No acute distress, Well developed/nourished - HEENT HEENT: Pharynx benign - Neck Neck: Supple, no meningeal sign, No adenopathy - Cardiac Cardiac: RRR, No murmur - Respiratory Respiratory: Clear bilaterally - Abdomen Abdomen: Soft, Non tender - Derm Derm: Normal color, Warm and dry - Extremities Extremities: No tenderness to palpate, Normal ROM s pain, No edema, No calf tenderness / cord - Neuro Neuro: Alert and oriented X 3, No motor deficit, Normal speech Eye Opening: Spontaneous Motor: Obeys Commands Verbal: Oriented GCS Score: 15 - Psych Psych: Normal mood Results - Vitals Vitals: Vital Signs - 24 hr 09/13/19 09/13/19 09/13/19 13:37 14:16 15:03 Temperature 36.3 C L Heart Rate 73 63 59 L Respiratory 16 17 19 Rate Blood Pressure 155/77 H 122/68 122/63 O2 Saturation 96 95 95 Oxygen O2 Source Room air - EKG (time done) 13:43 Rate: Rate (enter#) (72) Rhythm: NSR Lee: Normal Intervals: Normal MA QRS: Normal Ischemia: Normal ST segments. No: ST elevation c/w ischemia, ST depression - Labs Labs: Laboratory Tests 09/13/19 09/13/19 09/13/19 13:50 13:50 13:50 WBC 3.9 L RBC 4.26 Hgb 12.9 Hct 39.9 MCV 93.7 MCH 30.3 MCHC 32.3 RDW 13.4 Plt Count 135 MPV 10.7 Neut # (Auto) 2.7 Lymph # (Auto) 0.6 L [place] # (Auto) 0.5 Eos # (Auto) 0.2 Baso # (Auto) 0.0 Absolute Nucleated RBC 0.00 Band Neuts % (Manual) Not Reportable Abnorm Lymph % (Manual) Not Reportable Nucleated RBC % 0.0 Neutrophils # (Manual) Not Reportable Lymphocytes # (Manual) Not Reportable Monocytes # (Manual) Not Reportable Eosinophils # (Manual) Not Reportable Basophils # (Manual) Not Reportable Differential Comment MANUAL=AUTO DIFF WBC Morphology 1+ REACTIVE LYMPHS Platelet Estimate NORMAL (130-450,000) Platelet Morphology NORMAL APPEARANCE RBC Morph Micro Appear NORMAL APPEARANCE Sodium 135 Potassium 4.8 Chloride 97 L Carbon Dioxide 26 Anion Gap 12.0 BUN 20 Creatinine 0.8 Estimated GFR (MDRD) 70 L Glucose 97 Calcium 8.6 Magnesium 2.2 Total Bilirubin 0.7 AST 24 ALT 20 Alkaline Phosphatase 61 Troponin I High Sens 5.6 B-Natriuretic Peptide Total Protein 7.4 Albumin 4.0 Globulin 3.4 Albumin/Globulin Ratio 1.2 Lipase 38 09/13/19 09/13/19 13:50 15:37 WBC RBC Hgb Hct MCV MCH MCHC RDW Plt Count MPV Neut # (Auto) Lymph # (Auto) [place] # (Auto) Eos # (Auto) Baso # (Auto) Absolute Nucleated RBC Band Neuts % (Manual) Abnorm Lymph % (Manual) Nucleated RBC % Neutrophils # (Manual) Lymphocytes # (Manual) Monocytes # (Manual) Eosinophils # (Manual) Basophils # (Manual) Differential Comment WBC Morphology Platelet Estimate Platelet Morphology RBC Morph Micro Appear Sodium Potassium Chloride Carbon Dioxide Anion Gap BUN Creatinine Estimated GFR (MDRD) Glucose Calcium Magnesium Total Bilirubin AST ALT Alkaline Phosphatase Troponin I High Sens 6.0 B-Natriuretic Peptide 192 H Total Protein Albumin Globulin Albumin/Globulin Ratio Lipase PD MEDICAL DECISION MAKING - ED course Complexity details: reviewed results, re-evaluated patient (Still feeling well here in the emergency department at the initial results. I updated her and reiterated the desire for a repeated troponin level at 2 hours and she is agreeable.), considered differential (Consider IA versus angina versus straight episode of A. fib or other conditions. At this point she is feeling better. Her heart rhythm is normal and her EKG is good. Will check troponin levels now which is about 2 hours post onset of symptoms. However it may need a 2-hour repeat to verify no acute cardiac deal injury.), d/w patient Departure - Departure Disposition: 01 Home, Self Care Clinical Impression: Chest pain Qualifiers: Chest pain type: precordial pain Qualified Code(s): R07.2 - Precordial pain Clinical Impression: (Ruled Out): Myocardial infarction Condition: Stable Record reviewed to determine appropriate education?: Yes Instructions: ED Chest Pain Atypical Unkn Cause Follow-Up: Gaurav Valverde MD [Primary Care Provider] - Comments: Your EKG and blood tests are normal here. The repeat test is still good so no signs of heart attack or heart failure. I consider the possibility he may have had an episode of atrial fibrillation going fast that caused some shortness of breath and the fast heart rate feeling in some discomfort. It appears normal at this time. Follow-up with your primary care if you have repeated brief episodes. Return to the ER if you have another persistent episode. Follow-up with your primary care if you also have any exertionally related pattern of symptoms in the near future.
== END 2019-09-13 16:33 | disposition home or self-care (01) ==
LOC: ED 13:33
DX: R07.2 Precordial pain (principal); I10 Essential (primary) hypertension
CPT/HCPCS: 36415; 80053; 83690; 83735; 83880; 84484; 85025; 93005; 99284

== ENCOUNTER 2019-10-29 19:51 | Outpatient (CLI) | payer MEDICARE, BC ==
--- NOTE | 2019-10-29 22:08 | Ultrasound Report ---
Reason: RIGHT LEG PAIN Procedure Date: 10/29/2019 Accession Number: [id number] / [id number] Procedure: US - Duplex Ext Veins Right CPT Code: Final Report FULL RESULT: EXAM: RIGHT LOWER EXTREMITY VENOUS ULTRASOUND EXAM DATE: 10/29/2019 08:03 PM. CLINICAL HISTORY: RIGHT LEG PAIN. COMPARISON: DUPLEX EXT VEINS BILATERAL 10/06/2017 4:05 PM. TECHNIQUE: Real-time sonographic vascular imaging was performed by the reprographics technician through the lower extremity utilizing both color-flow and Doppler spectral analysis. Multiple senior sales representative static images were saved for review. FINDINGS: Common Femoral Vein (CFV): Normal. CFV-GSV Junction: Normal. Profunda Femoral Vein (PFV): Normal. Femoral Vein (FV) Prox: Normal. Femoral Vein (FV) Mid: Normal. Femoral Vein (FV) Dist: Normal. Popliteal Vein: Normal. Posterior Tibial Veins: Normal. Peroneal Veins: Normal. Other: None. IMPRESSION: No evidence for deep venous thrombosis. RAD[facility]
== END 2019-10-29 19:52 | disposition home or self-care (01) ==
LOC: DI 19:51
PROVIDERS: ATTEND Family Medicine
DX: I80.9 Phlebitis and thrombophlebitis of unspecified site (principal)

== ENCOUNTER 2019-10-30 19:12 | Outpatient (CLI) | payer MEDICARE, BC ==
--- NOTE | 2019-10-31 02:41 | Ultrasound Report ---
Reason: SUPERFICIAL THROMOPHLEBITIS Procedure Date: 10/30/2019 Accession Number: [id number] / [id number] Procedure: US - Ext Limited Non Vascular CPT Code: Final Report FULL RESULT: EXAM: RIGHT LOWER EXTREMITY ULTRASOUND - LIMITED EXAM DATE: 10/30/2019 07:14 PM. CLINICAL HISTORY: Right medial thigh swelling and pain. SUPERFICIAL THROMBOPHLEBITIS. COMPARISON: None. TECHNIQUE: Real-time scanning was performed in region of interest along right thigh with static images obtained. FINDINGS: No sonographic evidence of mass, abscess or free fluid seen in region of interest. IMPRESSION: No evidence of mass, abscess or free fluid in region of interest. [facility]
== END 2019-10-30 19:13 | disposition home or self-care (01) ==
LOC: DI 19:12
PROVIDERS: ATTEND Family Medicine
DX: I80.9 Phlebitis and thrombophlebitis of unspecified site (principal)
CPT/HCPCS: 76882

== ENCOUNTER 2020-01-03 14:12 | Outpatient (CLI) | payer MEDICARE, BC ==
--- NOTE | 2020-01-03 21:21 | XRAY Report ---
Reason: RIGHT HIP PAIN Procedure Date: 01/03/2020 Accession Number: [id number] / [id number] Procedure: WCP - Hip 1 View RT CPT Code: Final Report FULL RESULT: EXAM: RIGHT HIP RADIOGRAPHY EXAM DATE: 01/03/2020 02:12 PM. CLINICAL HISTORY: RIGHT HIP PAIN. COMPARISON: Exam of the lumbar spine from 07/25/2019. TECHNIQUE: 2 views. FINDINGS: Bones: Normal. No fractures or bone lesion. Joints: Mild to moderate osteoarthritic changes present. Soft Tissues: Normal. No soft tissue swelling. IMPRESSION: Mild to moderate osteoarthritic changes without acute fracture. RADIA
== END 2020-01-03 23:59 | disposition home or self-care (01) ==
LOC: DI.WCP 14:12
PROVIDERS: ATTEND Family Medicine
DX: M16.11 Unilateral primary osteoarthritis, right hip (principal)

== ENCOUNTER 2020-02-21 08:23 | Outpatient (CLI) | payer MEDICARE, BC ==
[2020-02-21 11:47] LABS: BASOPHILS % (AUTO) 0.8 %; EOSINOPHILS # (AUTO) 0.1 10^3/uL (0.0-0.7); EOSINOPHILS % (AUTO) 3.4 %; HGB - HEMOGLOBIN 13.3 g/dL (12.0-16.0); LYMPHOCYTES # (AUTO) 0.8 10^3/uL (1.5-3.5); LYMPHOCYTES % (AUTO) 20.9 %; MEAN CORPUSCULAR HEMOGLOBIN 28.4 pg (27.0-31.0); MEAN CORPUSCULAR HGB CONC 30.1 g/dL (32.0-36.0); MEAN CORPUSCULAR VOLUME 94.4 fL (81.0-99.0); MEAN PLATELET VOLUME 11.4 fL (7.9-10.8); MONOCYTES # (AUTO) 0.5 10^3/uL (0.0-1.0); MONOCYTES % (AUTO) 13.6 %; NEUTROPHILS # (AUTO) 2.3 10^3/uL (1.5-6.6); PLT - PLATELET COUNT 181 10^3/uL (130-450); RED BLOOD COUNT 4.68 10^6/uL (4.20-5.40); RED CELL DISTRIBUTION WIDTH 13.8 % (12.0-15.0); WHITE BLOOD COUNT 3.8 x10^3/uL (4.8-10.8)
[2020-02-21 11:59] LABS: ALBUMIN 4.1 g/dL (3.2-5.5); ALBUMIN/GLOBULIN RATIO 1.3 (1.0-2.2); BILIRUBIN,TOTAL 0.8 mg/dL (0.2-1.0); CREATININE 0.6 mg/dL (0.4-1.0); TOTAL PROTEIN 7.3 g/dL (6.7-8.2)
== END 2020-02-21 23:59 | disposition home or self-care (01) ==
LOC: LAB.WCP 08:23
PROVIDERS: ATTEND Family Medicine
DX: M54.5 Low back pain (principal); I10 Essential (primary) hypertension; I48.91 Unspecified atrial fibrillation; I25.10 Atherosclerotic heart disease of native coronary artery without angina pectoris
CPT/HCPCS: 36415; 80053; 84443; 85025

== ENCOUNTER 2020-02-28 09:09 | Outpatient (CLI) | payer MEDICARE, BC ==
--- NOTE | 2020-03-02 09:19 | Mammography Report ---
BILATERAL DIGITAL SCREENING MAMMOGRAM: 02/28/2020 Comparison is made to exams dated: 12/05/2018 mammogram, 11/21/2017 mammogram, 05/23/2016 mammogram, mammogram, 04/11/2014 mammogram, and 03/19/2013 mammogram - [facility]. Ther e are scattered fibroglandular elements in both breasts. There are benign calcifications in both breasts. No significant masses, calcifications, or other findings are seen in either breast. There has been no significant interval change. IMPRESSION: There is no mammographic evidence of malignancy. A 1 year screening mammogram is recommended. This exam was interpreted at Station ID: [id number]. NOTE: For mammograms, a report in lay terms will be sent to the patient. Approximately 15% of breast malignancies will not be visualized mammographically. In the management of a palpable breast mass, a negative mammogram must not discourage biopsy of a clinically suspicious lesion. Electronically Signed By: Tesfaye [email or web address]/[email or web address]:02/28/2020 12:47:24 ACR BI-RADS Category 2: Benign Finding(s) 3342F PARENCHYMAL PATTERN: (A) - The breast(s) demonstrate(s) scattered fibroglandular densities. BI-RADS CATEGORY: (2) - 2 RECOMMENDATION: (ANNUAL) - Recommend routine annual screening mammography. [id number] 1 year screening LATERALITY: (B)
== END 2020-02-28 09:10 | disposition home or self-care (01) ==
LOC: DI 09:09
DX: Z12.31 Encounter for screening mammogram for malignant neoplasm of breast (principal)
CPT/HCPCS: 77067

== ENCOUNTER 2020-03-01 10:42 | Emergency (ER) | payer MEDICARE, BC ==
[2020-03-01 11:05] LABS: BILIRUBIN,URINE NEGATIVE (NEGATIVE); GLUCOSE, URINE (UA) NEGATIVE (NEGATIVE); KETONES,URINE (UA) NEGATIVE (NEGATIVE); LEUKOCYTE ESTERASE, URINE MODERATE (NEGATIVE); NITRITE,URINE NEGATIVE (NEGATIVE); OCCULT BLOOD,URINE LARGE (NEGATIVE); PROTEIN,URINE NEGATIVE (NEGATIVE); UROBILINOGEN,URINE 0.2 (NORMAL) E.U./dL (NORMAL)
[2020-03-01 11:06] LABS: CLARITY,URINE CLEAR (CLEAR)
--- NOTE | 2020-03-01 11:10 | ED Physician Documentation ---
History of Present Illness - Stated complaint Stated Complaint: FEMALE - Chief complaint Chief Complaint: UTI - History obtained from History obtained from: Patient - Additonal information Additional information: And difficulty urinating which started this morning. Patient states that she has not had any back pain or fevers. She states that she noticed her urine was a little bit pinkish, and that this combination of symptoms is typical of when she has had UTIs previously. Patient states she had 4 bowel movements this morning, but they did not seem abnormal otherwise. No nausea or vomiting. No abdominal pain. No other complaints at this time. Review of Systems Ten Systems: 10 systems reviewed and negative Constitutional: reports: Reviewed and negative Eyes: reports: Reviewed and negative Ears: reports: Reviewed and negative Nose: reports: Reviewed and negative Throat: reports: Reviewed and negative Cardiac: reports: Reviewed and negative Respiratory: reports: Reviewed and negative GI: reports: Reviewed and negative : reports: Reviewed and negative Skin: reports: Reviewed and negative Musculoskeletal: reports: Reviewed and negative Neurologic: reports: Reviewed and negative Psychiatric: reports: Reviewed and negative Endocrine: reports: Reviewed and negative Immunocompromised: reports: Reviewed and negative PD PAST MEDICAL HISTORY - Past Medical History Cardiovascular: Hypertension, High cholesterol, [place], Atrial fibrillation Endocrine/Autoimmune: HyPOthyroidism - Past Surgical History Past Surgical History: Yes 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 - Present Medications Home Medications: Ambulatory Orders Medication Instructions Recorded Confirmed Aspirin Chewable [St Fritz 81 mg PO DAILY 07/07/13 05/31/16 Aspirin] Levothyroxine Sodium [Levothroid] 75 mcg PO DAILY 07/07/13 05/31/16 Nitroglycerin [Nitrostat] 0.4 mg SL Q5MIN PRN 07/07/13 05/31/16 atenoloL [Tenormin] 25 mg PO DAILY 07/07/13 05/31/16 lisinopriL [Lisinopril] 5 mg PO DAILY 07/07/13 05/31/16 Cholecalciferol (Vitamin D3) 2,000 unit PO 10/20/13 12/30/14 [Vitamin D-3] Flaxseed Oil [Flax Oil] 1,000 mg PO 10/20/13 12/30/14 Pravastatin Sodium 40 mg PO DAILY 10/20/13 05/31/16 Omeprazole [PriLOSEC] 20 mg PO DAILY #14 capsule 05/31/16 Cephalexin [Keflex] 500 mg PO Q6H #20 capsule 04/18/18 Phenazopyridine HCl [Pyridium] 200 mg PO TID PRN #6 tablet 04/18/18 Phenazopyridine HCl [Pyridium] 100 mg PO TID PRN #15 tablet 09/05/19 Sulfamethox/Trimeth 800/160 1 each PO BID #14 tablet 09/05/19 [Bactrim Ds 800/160] Phenazopyridine HCl [Pyridium] 200 mg PO TID PRN #6 tablet 03/01/20 Sulfamethox/Trimeth 800/160 1 each PO BID #14 tablet 03/01/20 [Bactrim Ds 800/160] - Allergies Allergies/Adverse Reactions: Allergies Allergy/AdvReac Type Severity Reaction Status Date / Time ibuprofen Allergy Intermediate upset Verified 09/05/19 17:34 stomach - Social History Does the pt smoke?: No Smoking Status: Never smoker Does the pt drink ETOH?: No Does the pt have substance abuse?: No - Immunizations Immunizations are current?: Yes - POLST Patient has POLST: No PD ED PE NORMAL - Vitals Vital signs reviewed: Yes - General General: Alert and oriented X 3, No acute distress - HEENT HEENT: Atraumatic, PERRL, EOMI, Moist mucous membranes - Neck Neck: Supple, no meningeal sign - Cardiac Cardiac: RRR, No murmur, Strong equal pulses - Respiratory Respiratory: No respiratory distress, Clear bilaterally - Abdomen Abdomen: Soft, Non tender, Non distended - Back Back: No CVA TTP - Derm Derm: Warm and dry - Extremities Extremities: No deformity - Neuro Neuro: Alert and oriented X 3 - Psych Psych: Normal mood, Normal affect Results - Vitals Vitals: Vital Signs - 24 hr 03/01/20 10:45 Temperature 36 C L Heart Rate 86 Respiratory 18 Rate Blood Pressure 167/87 H O2 Saturation 97 Oxygen O2 Source Room air - Labs Labs: Laboratory Tests 03/01/20 10:48 Urine Color YELLOW Urine Clarity CLEAR Urine pH 7.0 Ur Specific [place] 1.010 Urine Protein NEGATIVE Urine Glucose (UA) NEGATIVE Urine Ketones NEGATIVE Urine Occult Blood LARGE H Urine Nitrite NEGATIVE Urine Bilirubin NEGATIVE Urine Urobilinogen 0.2 (NORMAL) Ur Leukocyte Esterase MODERATE H Urine RBC 11-25 H Urine WBC 11-25 H Ur Squamous Epith Cells RARE Squamous Urine Bacteria Rare Ur Microscopic Review INDICATED Urine Culture Comments INDICATED PD MEDICAL DECISION MAKING - ED course Complexity details: reviewed results, re-evaluated patient, considered differential, d/w patient ED course: Urinalysis was positive for infection. The patient was started on Bactrim in the emergency department, and given prescriptions for Bactrim and Pyridium as an outpatient. We have discussed home management of the symptoms, as well as the usual indications for return. Departure - Departure Disposition: 01 Home, Self Care Clinical Impression: Urinary tract infection Qualifiers: Urinary tract infection type: acute cystitis Hematuria presence: with hematuria Qualified Code(s): N30.01 - Acute cystitis with hematuria Condition: Stable Instructions: ED UTI Cystitis Female Prescriptions: Sulfamethox/Trimeth 800/160 [Bactrim Ds 800/160] 1 each PO BID #14 tablet Phenazopyridine HCl [Pyridium] 200 mg PO TID PRN #6 tablet PRN Reason: dysuria
[2020-03-01 11:15] LABS: BACTERIA,URINE Rare /HPF (None Seen); SQUAMOUS EPITHELIAL CELL,UR RARE Squamous (<= Few)
[2020-03-01] MEDS ORDERED: SULFAMETH/TRIMETH DS 800/160 MG TABLET PO STA (11:15)
[2020-03-01 11:26] VITALS: BP 160/108
== END 2020-03-01 11:29 | disposition home or self-care (01) ==
LOC: ED 10:42
DX: N30.01 Acute cystitis with hematuria (principal)
CPT/HCPCS: 81001; 87086; 87181; 99283; 99284; A9270; 81003

== ENCOUNTER → 2020-05-06 | Outpatient (CLI) | payer MEDICARE, BC | LOC: LAB.WCP 08:00 | PROVIDERS: ATTEND Family Medicine | DX: R06.09 Other forms of dyspnea (principal) | CPT/HCPCS: 36415; 83880 ==

== ENCOUNTER 2020-08-12 09:17 | Outpatient (CLI) | payer MEDICARE, BC ==
[2020-08-12 12:22] LABS: BASOPHILS # (AUTO) 0.1 10^3/uL (0.0-0.1); BASOPHILS % (AUTO) 1.3 %; EOSINOPHILS # (AUTO) 0.2 10^3/uL (0.0-0.7); EOSINOPHILS % (AUTO) 4.7 %; HCT - HEMATOCRIT 44.6 % (37.0-47.0); HGB - HEMOGLOBIN 13.6 g/dL (12.0-16.0); LYMPHOCYTES # (AUTO) 0.7 10^3/uL (1.5-3.5); LYMPHOCYTES % (AUTO) 17.3 %; MEAN CORPUSCULAR HEMOGLOBIN 26.9 pg (27.0-31.0); MEAN CORPUSCULAR HGB CONC 30.5 g/dL (32.0-36.0); MEAN CORPUSCULAR VOLUME 88.3 fL (81.0-99.0); MEAN PLATELET VOLUME 10.7 fL (7.9-10.8); MONOCYTES # (AUTO) 0.5 10^3/uL (0.0-1.0); MONOCYTES % (AUTO) 11.6 %; NEUTROPHILS # (AUTO) 2.5 10^3/uL (1.5-6.6); NEUTROPHILS % (AUTO) 64.8 %; PLT - PLATELET COUNT 202 10^3/uL (130-450); RED BLOOD COUNT 5.05 10^6/uL (4.20-5.40); WHITE BLOOD COUNT 3.9 x10^3/uL (4.8-10.8)
[2020-08-12 12:46] LABS: ALBUMIN 3.9 g/dL (3.2-5.5); ALKALINE PHOSPHATASE 81 IU/L (42-121); ALT ALANINE AMINOTRANSFERASE 13 IU/L (10-60); AST ASPARTATE AMINOTRANSFERASE 18 IU/L (10-42); BILIRUBIN,TOTAL 1.3 mg/dL (0.2-1.0); BUN - BLOOD UREA NITROGEN 13 mg/dL (6-20); CALCIUM 8.9 mg/dL (8.5-10.3); CARBON DIOXIDE - CO2 28 mmol/L (21-32); CHLORIDE 103 mmol/L (101-111); CHOL/HDL RATIO 2.2 (<4.4); CHOLESTEROL 138 mg/dL; CREATININE 0.6 mg/dL (0.4-1.0); GFR - MDRD 97 (>89); GLUCOSE 99 mg/dL (70-100); HDL CHOLESTEROL 64 mg/dL; LDL CHOLESTEROL,CALCULATED 59 mg/dL; LDL/HDL RATIO 0.9 (<4.4); SODIUM 140 mmol/L (135-145); TOTAL PROTEIN 7.7 g/dL (6.7-8.2); TRIGLYCERIDES 73 mg/dL; VLDL CHOLESTEROL 15 mg/dL
[2020-08-12 12:47] LABS: THYROID STIMULATING HORMONE 1.38 uIU/mL (0.34-5.60)
== END 2020-08-12 23:59 | disposition home or self-care (01) ==
LOC: LAB.WCP 09:17
PROVIDERS: ATTEND Internal Medicine
DX: I48.91 Unspecified atrial fibrillation (principal); I25.10 Atherosclerotic heart disease of native coronary artery without angina pectoris
CPT/HCPCS: 36415; 80053; 80061; 83721; 84443; 85025

== ENCOUNTER 2020-08-20 09:37 | Outpatient (CLI) | payer MEDICARE, BC ==
[2020-08-20 10:35] VITALS: BP 145/84
--- NOTE | 2020-08-20 10:35 | SLEEP CARE CONSULTATION ---
Information from patient questionnaire entered by Monica Bull. I have reviewed and concur with the information entered by Monica Bull. This document represents the service I personally performed and the decisions made by me, Marisa Welch ARNP. History of Present Illness Service Date and Time: 08/20/2020 0937 Reason for Visit: New patient Chief Complaint: reports: Unrefreshed sleep, Snoring, Excessive daytime sleepiness, Observed pauses in breathing (per ), Fatigue, Frequent awakenings at night, Other (Atrial fibrillation, referred by cardiology) Date of Onset: over a year Usual bedtime: 11 pm Time it takes to fall asleep: within 30 minutes Snores at night: Yes Observed to quit breathing while asleep: Yes Sleeps alone due to snoring: No Number of times waking at night: 3-4 Reasons for waking at night: reports: Choking, Snoring, Gasping for air, Bathroom Toss, Turn, or Twitch while sleeping: No Recalls having dreams: Yes Usually gets out of bed at: 7:30 - 8 am Feels refreshed in the morning: No Morning headache: Yes (sometimes; 1 x week, lasting hour after meds) Sleepy or fatigued during the day: Yes Ever fallen asleep while driving: No Takes day naps: Yes (daily in afternoon, sets timer for 30 minutes) Dreams during day naps: No Prior sleep studies: No Additional HPI information: I had the pleasure of seeing GERHARD CAMPBELL today regarding the possibility of her having a sleep disorder. Her current complaints are snoring, frequent night awakenings, unrefreshed sleep and fatigue. She has a history of atrial fibrillation with cardioversions. She is currently looking at getting a heart ablation for treatment. Her machine adjuster helper referred her for evaluation due to her history of snoring and frequent night awakenings. Her told her she does have pauses in breathing when sleeping. She has woken up snoring, choking and gasping for air. Other times she wakes up she does not know what has woken her up. She has had a ME in the past and is being treated for hypertension. - Parasomnia Symptoms Ever been unable to move upon waking from sleep: No Walks in sleep: No Talks in sleep: Yes Ever acted out dreams in sleep: Yes Ever felt weak in the knees when startled or emotional: No Bothered by creepy, crawly, restless sensations in legs: No Problems with memory or concentration: Yes (memory sometimes) Subjective Initial Colton Sleepiness Scale score: 9 (in 2019) Past Medical History Past Medical History: reports: Hypertension, Arthritis, Coronary Heart Disease (ME 15 years ago), Arrythmia (Atrial fibrillation), Hypothyroidism, Anxiety (associated with increased heart rate), GERD. denies: Diabetes, Anemia, Depression Social History The patient's occupation is a Retired. Patient is and lives in [place]. Have you smoked in the past 12 months: No Alcohol use: Yes Alcohol amount and frequency: occasional Caffeine use: No Family History Family history of sleep disordered breathing: Yes (brother) Family Hx Sleep Apnea: Sibling: Snoring, Sleep apnea - Treated Allergies and Home Medications Drug allergies reviewed: Yes (ibuprofen) Home medication list reviewed: Yes Allergy and home medication list: Eliquis 5 mg bid calcium 500 mg bid Vit D3 bid flaxseed oil 1000 mg bid levothyroxine 75 mcg lisinopril 10 mg daily magnesium oxide 3 days a week pravastatin 40 mg every evening sotalol 80 mg bid Review of Systems Cardiovascular: reports: high blood pressure, palpitations, chest pain, irregular heart rate or pulse Respiratory: reports: shortness of breath Gastrointestinal: reports: heartburn Urinary: reports: urgency (sometimes) Neurological: reports: gait or balance problems (balance) Psychiatric: reports: anxiety Ear/Nose/Throat: reports: sinus problems, dry mouth/throat, wisdom teeth removed. denies: tonsillectomy Endocrine: reports: thyroid disease, sluggishness (tired) Musculoskeletal: reports: joint pain Immunologic: reports: itching Physical Exam Blood Pressure: 145/84 Cuff size: regular Heart Rate: 70 O2 Saturation: 98 Height: 5 ft 5 in Weight: 185 lb Body Mass Index: 30.7 BMI Classification: Obese Neck circumference: 14.5 (inches) Nostrils: patent to airflow Turbinates: swollen Septum: midline Mouth and throat: narrow oropharynx Hard palate: arched Uvula visualization: 25% Mallampati Class III Tongue: enlarged in size with teeth hou on lateral edges Tonsils: 2+ Heart: irregular rhythm Lungs: clear bilaterally Impression and Plan 1. Suspected Obstructive Sleep Apnea-Hypopnea Syndrome, as suggested by a history of loud and irregular snoring, observed cessation of breath while asleep, gasping or choking in sleep, morning headache, frequent awakening during the night, unrefreshed sleep, cognitive impairment, and excessive daytime sleepiness. I reviewed with the patient that a narrow oropharynx and obesity are common predisposing factors for obstructive sleep apnea-hypopnea syndrome. I recommend proceeding to polysomnography to confirm the diagnosis and to assess severity. If the patient has significant sleep disordered breathing, a manual CPAP titration study will also be performed to find the optimal treatment pressure. I informed the patient of what the sleep studies involve and after some discussion, obtained agreement to proceed. The pathophysiology of obstructive sleep apnea-hypopnea syndrome was discussed with the patient and health risks of cardiovascular and cerebrovascular disease if not treated. AAS brochure for obstructive sleep apnea-hypopnea syndrome given and reviewed. Risks of drowsy driving discussed in detail and patient advised to avoid long distance driving and to tobacco sample puller at the first sign of drowsiness. Patient agreed to plan. * Schedule polysomnography +- manual CPAP titration study and return in 1-2 weeks after the study to discuss result and initiate therapy. * Avoid long distance driving or driving when feeling sleepy. * Avoid alcohol, sedative and muscle relaxant around bedtime. * Attempt to lose weight. * Review instructions provided by trained office staff on how to prepare for the sleep study. * Return for follow-up after sleep study completed. Counseling Topics: Weight loss health impact Visit Type: In Office Time Spent with Patient (minutes): 32 Provider Statement: I spent 100% of the Face to Face Visit with the patient with greater than 50% spent counseling the patient and coordination of care.
--- OUTSIDE RECORDS SUMMARY | 2020-08-26 01:04 | EXTERNAL MEDICAL SUMMARY RPT | Continuity of Care Document ---
:1945 Demographics Phone Unavailable Preferred Language Jordanian Marital Status Unknown Yarsanism Affiliation Unknown Race Unknown Ethnic Group Unknown Author Organization [place] Address [address] [place] [address] Phone Care Team Providers Name Role Phone Abram Unavailable Unavailable Unavailable Unavailable Ovidio Unavailable Unavailable Unavailable Franko Kohli Unavailable Unavailable Problems date description facility 2013-03-19 08:39 HX-HEALTH HAZARDS [facility] 2013-03-19 08:39 SCRN MAMMO-HIGH RISK PT, MALIGNANT [facility] NEOPLASM OF BREAST 2013-07-07 03:04 URIN TRACT INFECTION NOS [facility] 2013-07-07 03:04 ABDOMINAL PAIN, UNSPECIFIED SITE [facility] 2013-07-17 07:44 URIN TRACT INFECTION NOS [facility] 2013-10-08 07:29 NONTOX MULTINODUL GOITER [facility] 2013-10-11 06:32 HYPOTHYROIDISM NOS Located within [facility] 2013-10-20 13:37 URIN TRACT INFECTION NOS [facility] 2013-10-20 13:37 LUMBAGO Located within [facility] 2013-12-20 08:00 HYPOTHYROIDISM NOS Located within [facility] 2013-12-20 08:[address] [facility] 2014-03-06 08:00 HYPOTHYROIDISM NOS Located within [facility] 2014-03-06 08:00 CORON ATHEROSCLER NOS TYPE VESSEL, [facility] KOI OR GRAFT 2014-04-11 14:54 HX-HEALTH HAZARDS [facility] 2014-04-11 14:54 SCRN MAMMO-HIGH RISK PT, MALIGNANT [facility] NEOPLASM OF BREAST 2014-05-23 08:00 DERMATOPHYTOSIS OF NAIL [facility] 2014-05-26 13:42 RESPIRATORY ABNORM [facility] [place] 2014-09-26 13:39 BONE CARTILAGE DIS NOS [facility] 2014-09-29 08:00 HYPOTHYROIDISM NOS Located [facility] 2014-09-29 08:[address] [facility] 2014-09-29 08:00 CORON ATHEROSCLER NOS TYPE VESSEL, [facility] KOI OR GRAFT 2014-10-17 12:50 NONTOX MULTINODUL GOITER [facility] 2014-12-30 00:33 HYPOTHYROIDISM NOS [facility]ated [facility] 2014-12-30 00:33 PURE HYPERCHOLESTEROLEM [facility] 2014-12-30 00:33 HYPERTENSION NOS [facility] 2014-12-30 00:33 OLD MYOCARDIAL INFARCT [facility] 2014-12-30 00:33 PNEUMONIA, ORGANISM NOS [facility] 2014-12-30 00:33 COUGH [facility] 2015-04-09 13:41 HX-HEALTH HAZARDS [facility] 2015-04-09 13:41 SCRN MAMMO-HIGH RISK PT, MALIGNANT [facility] NEOPLASM OF BREAST 2015-05-15 09:19 ESSENTIAL (PRIMARY) HYPERTENSION [facility] 2015-05-15 09:19 ATHSCL HEART DISEASE OF [facility] CORONARY ARTERY W/O ANG PCTRS 2015-06-16 08:25 OLD MYOCARDIAL INFARCTION [facility] 2015-12-21 08:47 NONTOXIC MULTINODULAR GOITER [facility] 2015-12-21 08:47 ATHSCL HEART DISEASE OF [facility] CORONARY ARTERY W/O ANG PCTRS 2015-12-21 08:47 URINARY TRACT INFECTION, SITE NOT [facility] SPECIFIED 2015-12-21 08:47 CYSTOCELE, UNSPECIFIED [facility] 2016-05-23 14:38 ENCNTR SCREEN MAMMOGRAM FOR [facility] MALIGNANT NEOPLASM OF BREAST 2016-05-31 00:44 HYPOTHYROIDISM, UNSPECIFIED [facility] 2016-05-31 00:44 ESSENTIAL (PRIMARY) HYPERTENSION [facility] 2016-05-31 00:44 OLD MYOCARDIAL INFARCTION [facility] 2016-05-31 00:44 GASTRO-ESOPHAGEAL REFLUX DISEASE [facility] WITHOUT ESOPHAGITIS 2016-05-31 00:44 PAIN IN THROAT [facility] 2016-05-31 00:44 PHYSICIST CRYOGENICS (CURRENT) USE OF ASPIRIN [facility] 2016-06-16 07:30 NONTOXIC MULTINODULAR GOITER [facility] 2016-09-02 09:57 OTH DISRD OF BONE DENSITY AND [facility] STRUCTURE, MULTIPLE SITES 2016-10-06 08:05 ANEMIA, UNSPECIFIED [facility] 2016-10-06 08:05 HYPOTHYROIDISM, UNSPECIFIED [facility] 2016-10-06 08:05 NONTOXIC MULTINODULAR GOITER [facility] 2016-10-06 08:05 GASTRO-ESOPHAGEAL REFLUX DISEASE [facility] WITHOUT ESOPHAGITIS 2016-10-22 14:51 PHLEBITIS AND THROMBOPHLEBITIS OF [facility] UNSPECIFIED SITE 2016-11-17 13:09 UNILATERAL PRIMARY OSTEOARTHRITIS, [facility] LEFT KNEE 2017-02-27 07:24 URINARY TRACT INFECTION, SITE NOT [facility] SPECIFIED 2017-03-18 12:29 EFFUSION, RIGHT KNEE [facility] 2017-03-18 12:29 SYNOVIAL CYST OF POPLITEAL SPACE [facility] [JONES], RIGHT KNEE 2017-03-18 12:29 NONDISP FX OF MEDIAL CONDYLE OF [facility] RIGHT TIBIA, INIT 2017-06-12 08:19 ANEMIA, UNSPECIFIED [facility] 2017-06-12 08:19 HYPOTHYROIDISM, UNSPECIFIED [facility] 2017-06-12 08:19 ATHSCL HEART DISEASE OF [facility] CORONARY ARTERY W/O ANG PCTRS 2017-08-29 08:00 ANEMIA, UNSPECIFIED [facility] 2017-08-29 08:00 ESSENTIAL (PRIMARY) HYPERTENSION [facility] 2017-10-05 08:00 DYSPNEA, UNSPECIFIED [facility] 2017-10-06 13:22 OTHER NONSPECIFIC ABNORMAL FINDING [facility] OF LUNG FIELD 2017-11-21 10:37 ENCNTR SCREEN MAMMOGRAM FOR [facility] MALIGNANT NEOPLASM OF BREAST 2017-12-31 20:14 PURE HYPERCHOLESTEROLEMIA, [facility] UNSPECIFIED 2017-12-31 20:14 ESSENTIAL (PRIMARY) HYPERTENSION [facility] 2017-12-31 20:14 OLD MYOCARDIAL INFARCTION [facility] 2017-12-31 20:14 CYSTITIS, UNSPECIFIED WITHOUT [facility] HEMATURIA 2017-12-31 20:14 FREQUENCY OF MICTURITION [facility] 2018-04-18 13:11 HYPOTHYROIDISM, UNSPECIFIED [facility] 2018-04-18 13:11 PURE HYPERCHOLESTEROLEMIA, [facility] UNSPECIFIED 2018-04-18 13:11 ESSENTIAL (PRIMARY) HYPERTENSION [facility] 2018-04-18 13:11 OLD MYOCARDIAL INFARCTION [facility] 2018-04-18 13:11 CYSTITIS, UNSPECIFIED WITHOUT [facility] HEMATURIA 2018-04-18 13:11 DYSURIA [facility] 2018-04-18 13:11 ASSISTED (CURRENT) USE OF ASPIRIN [facility] 2018-05-15 08:00 URINARY TRACT INFECTION, SITE NOT [facility] SPECIFIED 2018-07-16 08:00 HYPOTHYROIDISM, UNSPECIFIED [facility] 2018-07-16 08:00 ESSENTIAL (PRIMARY) HYPERTENSION [facility] 2018-09-04 09:56 OTH DISRD OF BONE DENSITY AND [facility] STRUCTURE, MULTIPLE SITES 2018-12-05 08:30 ENCNTR SCREEN MAMMOGRAM FOR [facility] MALIGNANT NEOPLASM OF BREAST 2019-01-14 09:48 NONTOXIC MULTINODULAR GOITER [facility] 2019-02-27 09:19 DYSPNEA, UNSPECIFIED [facility] 2019-04-10 08:00 URGENCY OF URINATION [facility] 2019-07-15 08:48 NONTOXIC MULTINODULAR GOITER [facility] 2019-07-15 08:48 ATHSCL HEART DISEASE OF [facility] CORONARY ARTERY W/O ANG PCTRS 2019-07-15 08:48 UNSPECIFIED ATRIAL FIBRILLATION [facility] 2019-07-25 15:47 OTHER FORMS OF SCOLIOSIS, LUMBAR [facility] REGION 2019-07-25 15:47 OTHER INTERVERTEBRAL DISC [facility] DEGENERATION, LUMBOSACRAL REGION 2019-09-05 17:28 ESSENTIAL (PRIMARY) HYPERTENSION [facility] 2019-09-05 17:28 URINARY TRACT INFECTION, SITE NOT [facility] SPECIFIED 2019-09-05 17:28 DYSURIA [facility] [place] 2019-09-05 17:28 ASSISTED (CURRENT) USE OF ASPIRIN [facility] 2019-09-13 13:33 ESSENTIAL (PRIMARY) HYPERTENSION [facility] 2019-09-13 13:33 PRECORDIAL PAIN [facility] Medic [facility] 2019-09-13 13:33 CHEST PAIN, UNSPECIFIED [facility] 2019-10-29 19:51 PHLEBITIS AND THROMBOPHLEBITIS OF [facility] UNSPECIFIED SITE 2019-10-30 19:12 PHLEBITIS AND THROMBOPHLEBITIS OF [facility] UNSPECIFIED SITE 2020-01-03 14:12 UNILATERAL PRIMARY OSTEOARTHRITIS, [facility] RIGHT HIP 2020-02-21 08:23 ESSENTIAL (PRIMARY) HYPERTENSION [facility] 2020-02-21 08:23 ATHSCL HEART DISEASE OF [facility] CORONARY ARTERY W/O ANG PCTRS 2020-02-21 08:23 UNSPECIFIED ATRIAL FIBRILLATION [facility] 2020-02-21 08:23 LOW BACK PAIN [facility] [place] 2020-02-28 09:09 ENCNTR SCREEN MAMMOGRAM FOR [facility] MALIGNANT NEOPLASM OF BREAST 2020-03-01 10:42 ACUTE CYSTITIS WITH HEMATURIA [facility] 2020-03-01 10:42 DYSURIA [facility] [place] 2020-05-06 08:00 OTHER FORMS OF DYSPNEA [facility] 2020-06-10 00:00:00 Alcohol intake [facility] jae [facility] 2020-06-10 00:00:00 Tobacco use and exposure [facility] 2020-06-10 00:00:00 [facility] 2020-06-10 00:00:00 Tobacco smoking status NHIS [facility] 2020-06-10 00:00:00 [facility] 2020-06-10 00:00:00 [facility] 2020-06-10 00:00:00 [facility] 2020-07-14 00:00:00 TSH WITH REFLEX TO FT4 [facility] 2020-07-14 00:00:00 COMPREHENSIVE METABOLIC PANEL [facility] 2020-07-14 00:00:00 LIPIDS SCREEN [facility] 2020-07-14 00:00:00 CBC W/Diff[facility]t [facility] 2020-08-10 00:00:00 TSH WITH REFLEX TO FT4 [facility] 2020-08-10 00:00:00 Encounters for other specified [facility] administrative purpose [facility] 2020-08-10 00:00:00 COMPREHENSIVE METABOLIC PANEL [facility] Primary [facility] 2020-08-10 00:00:00 LIPIDS SCREEN [facility] 2020-08-10 00:00:00 CBC W[facility]Diff[facility]Plt [facility] 2020-08-10 00:00:00 Old myocardial infarction [facility] 2020-08-10 00:00:00 Other specified counseling [facility] 2020-08-10 00:00:00 Alcohol intake [facility] 2020-08-10 00:00:00 H/O: artificial heart valve [facility] 2020-08-10 00:00:00 Health-related behavior [facility] [place] [facility] 2020-08-10 00:00:00 Tobacco use and exposure [facility] [place] [facility] 2020-08-10 00:00:00 Exercise [facility] [place] [facility] 2020-08-10 00:00:00 [facility] 2020-08-10 00:00:00 Procedure carried out on subject luciana [facility] [place] [facility] 2020-08-10 00:00:00 Alcohol use [facility] [place] [facility] 2020-08-10 00:00:00 Tobacco smoking status NHIS [facility] [place] [facility] 2020-08-12 00:[facility] CORONARY ARTERY W/O ANG PCTRS 2020-08-12 00:00 UNSPECIFIED ATRIAL FIBRILLATION [facility] 2020-08-12 09:17 [facility] CORONARY ARTERY W/O ANG PCTRS 2020-08-12 09:17 UNSPECIFIED ATRIAL FIBRILLATION [facility] Allergies date description facility CODEINE [facility] HYDROCODONE [facility] No Known Drug Allergies [facility] ibuprofen [facility] CODEINE [facility] KETOROLAC [facility] POISON OAK EXTRACT [facility] TRAMADOL HCL [facility] TRAMADOL [facility] PENICILLINS [facility] SQUASH [facility] ASPIRIN [facility] CODEINE [facility] Center HYMENOPTERA ALLERGENIC EXTRACT [facility] LATEX [facility] Center MEDICAL SUPPLY, MISCELLANEOUS [facility] NICKEL [facility] PENICILLINS [facility] SILVER [facility] SULFA (SULFONAMIDE ANTIBIOTICS) [facility] SHELLFISH CONTAINING PRODUCTS [facility] NO ALLERGY INFORMATION AVAILABLE [facility]rofen [facility] SQUASH [facility] ACETAMINOPHEN [facility] ASPIRIN [facility] CODEINE [facility] FLUNISOLIDE [facility] Center HYDROCODONE BITARTRATE [facility] M edical Center HYDROCODONE [facility] Center HYMENOPTERA ALLERGENIC EXTRACT [facility] LATEX [facility] LEVOFLOXACIN [facility] LISINOPRIL [facility] Center MEDICAL SUPPLY, MISCELLANEOUS [facility] MEPERIDINE [facility] MORPHINE [facility] NICKEL [facility] OXYCODONE (BULK) [facility] Center OXYCODONE-ACETAMINOPHEN [facility] PENICILLINS [facility] Center PROCHLORPERAZINE EDISYLATE [facility] SILVER [facility] Center SULFA (SULFONAMIDE ANTIBIOTICS) [facility] TIZANIDINE [facility] Medic al Center SHELLFISH CONTAINING PRODUCTS [facility] NO ALLERGY INFORMATION AVAILABLE [facility] No Known Drug Allergies [facility] ibuprofen [facility] Center ibuprofen [facility] Center Medications date description facility 2020-08-10 00:00:00 null [facility] [place] [facility] 2020-08-10 00:00:00 null [facility] [place] [facility] 2020-08-10 00:00:00 MAGNESIUM OXIDE [facility] [place] [facility] 2020-08-10 00:00:00 MAGNESIUM OXIDE [facility] [place] [facility] Procedures date description facility 2020-08-10 00:00:00 TSH WITH REFLEX TO FT4 [facility] [place] [facility] date description facility 2020-08-10 00:00:00 COMPREHENSIVE METABOLIC PANEL [facility] [place] [facility] date description facility 2020-08-10 00:00:00 LIPIDS SCREEN [facility] [place] [facility] date description facility 2020-08-10 00:00:00 CBC W/Diff/Plt [facility] [place] [facility] date description facility 2020-08-10 00:00:00 [facility] [place] [facility] Results Social History date description facility 2020-06-10 00:00:00 Never smoker [facility] [place] [facility] date description facility 2020-08-10 00:00:00 Never smoker [facility] [place] [facility] Social History date description facility 2020-06-10 00:00:00 Never smoker [facility] [place] [facility] date description facility 2020-08-10 00:00:00 Never smoker [facility] [place] [facility] date description facility [id number]
== END 2020-08-20 09:38 | disposition home or self-care (01) ==
LOC: SC 09:37
PROVIDERS: ATTEND Nurse Practitioner Family
DX: G47.10 Hypersomnia, unspecified (principal); R41.89 Other symptoms and signs involving cognitive functions and awareness; G47.8 Other sleep disorders; R51.9 Headache, unspecified; R06.81 Apnea, not elsewhere classified; R06.83 Snoring; E66.9 Obesity, unspecified; Z68.30 Body mass index [BMI] 30.0-30.9, adult
CPT/HCPCS: 99203; G0463; 99212

== ENCOUNTER 2020-09-16 10:25 | Outpatient (CLI) | payer MEDICARE, BC ==
--- NOTE | 2020-09-16 15:16 | DEXA Report ---
PROCEDURE: Dexa Spine and/or Hip INDICATIONS: OSTEOPENIA, OTHER DISORDERS OF BONE DENSITY TECHNIQUE: Dual energy x-ray absorptiometry (DXA) was performed on a [employer] System. Regions measur ed are the AP Spine, femoral neck, and if needed forearm. COMPARISON: None. FINDINGS: Lumbar Spine: Bone Mineral Density 1.087 g/cm/cm,T score -0.8, normal Left Hip: Bone Mineral Density 0.798 g/cm/cm,T score -1.7, mild to moderate osteopenia Left Femoral Neck: Bone Mineral Density 0.864 g/cm/cm, T score -1.3, mild osteopenia (T score greater or equal to -1.0: NORMAL) (T score from -1.1 to -2.4: OSTEOPENIA) (T score less than or equal to -2.5 to: OSTEOPOROSIS) Impression: Osteopenia most notable in the left hip. Patients with diagnosis of osteoporosis or osteopenia should have regular bone mineral density assess ment. For those eligible for Medicare, routine testing is allowed once every 2 years. Testing frequ ency can be increased for patients who have rapidly progressing disease or for those who are receivin g medical therapy to restore bone mass. Reviewed by: Ira Solomon MD on 09/16/2020 3:15 PM PST Approved by: Ira Solomon MD on 09/16/2020 3:15 PM PST Station ID: [id number]
== END 2020-09-16 10:26 | disposition home or self-care (01) ==
LOC: DI 10:25
PROVIDERS: ATTEND Internal Medicine
DX: M85.88 Other specified disorders of bone density and structure, other site (principal); M85.852 Other specified disorders of bone density and structure, left thigh

== ENCOUNTER 2020-10-13 20:43 | Outpatient (CLI) | payer MEDICARE, BC | END 2020-10-13 20:44 | disposition home or self-care (01) | LOC: SC 20:43 | PROVIDERS: ATTEND Nurse Practitioner Family | DX: G47.33 Obstructive sleep apnea (adult) (pediatric) (principal); I48.91 Unspecified atrial fibrillation; E66.3 Overweight; Z68.30 Body mass index [BMI] 30.0-30.9, adult | CPT/HCPCS: 95810 ==

== ENCOUNTER 2020-10-16 14:00 | Outpatient (CLI) | payer MEDICARE, BC ==
--- NOTE | 2020-10-16 14:49 | SLEEP CARE CONSULTATION ---
Information from patient questionnaire entered by Newton Nicolas. I have reviewed and concur with the information entered by Newton Nicolas. This document represents the service I personally performed and the decisions made by , Marisa Welch ARNP. History of Present Illness Service Date and Time: 10/16/2020 1400 Initial [place] Sleepiness Scale score: 9 (in 2020) Current [place] Sleepiness Scale score: 7 Additional HPI information: GERHARD CAMPBELL returns for follow up and results of the recently performed polysomnography. I explained the pathophysiology behind obstructive sleep apnea. We then spent quite a bit of time discussing different treatment options. For mild obstructive sleep apnea, surgery and oral appliance are alternatives to nasal CPAP therapy but in moderate or severe cases, nasal CPAP is the most effective and reliable treatment. Because apnea is primarily in supine position, then positional management therapy could be effective. Methods discussed such as positioning with pillows, using a T-shirt with tennis balls in the back, and shown commercial products that have a pillow format on back to prevent supine sleep. I reviewed the impact of weight changes on sleep apnea and strongly recommended losing weight. I explained how CPAP machine works with sample devices [employer] Dreamstation and [employer] [id number] and what to expect when using the machine. [facility] patient education PAP tips and Non Pap treatment pamphlets reviewed and given to patient. Sleep Study - Results Type of Sleep Study: Polysomnography Prior sleep studies: No Polysomnography/Home Sleep Study results: IMPRESSION: The quality of the study is good. The patient had reduced sleep efficiency due to several awakenings after the sleep onset. The sleep stage distribution was normal. Respiratory monitoring showed mild obstructive sleep apnea-hypopnea (AHI = 12.6) associated with oxyhemoglobin desaturation and moderate hypoxia (linda oxygen saturation of 74%). Baseline oxygen saturation was normal. The respiratory events occurred mainly during REM sleep (supine AHI = 30.6; non-supine = 7.62). Snore was light to loud in intensity. There was no significant periodic leg movement of sleep. Cardiac rhythm was atrial fibrillation with occasional premature ventricular contractions. No abnormal behavior (parasomnia) observed during the night. Allergies and Home Medications Drug allergies reviewed: Yes (ibuprofen) Home medication list reviewed: Yes (dofetilide (Tikosyn) 5 mg 2x day for Afib) Review of Systems Review of systems same as previous: Yes (no changes) Physical Exam Heart Rate: 83 O2 Saturation: 98 Height: 5 ft 6 in Weight: 186 lb Body Mass Index: 29.9 BMI Classification: Overweight Impression and Plan 1. Obstructive Sleep Apnea-Hypopnea Syndrome, mild, with lowest oxygen saturation of 74%. Obviously this is the cause of the patients symptoms of unrefreshed sleep, and excessive daytime sleepiness. Positive pressure therapy could benefit hypertension, cardiac disease, heart arrhythmias, anxiety and gastric reflux. She is severe on her back but mild on her side. She may be able to use an oral appliance with positional therapy to control her apneas adequately. I advised the patient that she would obtain the best benefits from CPAP therapy due to her current medical conditions. Gerhard Glover would like to take some time to think about her options and will call in a few weeks to let us know her decision on which therapy she would like to start. Because the apnea is more severe supine, I instructed to avoid sleeping supine using pillow positioning while she is thinking about her decision, talking to and her brother who uses a CPAP machine. She voiced understanding and agreement with plan of care. * Patient to call to let us know which therapy she would like to start * Continue to try to lose weight. * Avoid alcohol consumption near bedtime. * Avoid supine sleep * The patient is again cautioned about driving until sleepiness completely resolves. * Return to office in one month to talk about treatment options again if still undecided. Counseling Topics: Weight loss health impact Visit Type: In Office Time Spent with Patient (minutes): 25 Provider Statement: I spent 100% of the Face to Face Visit with the patient with greater than 50% spent counseling the patient and coordination of care.
== END 2020-10-16 14:01 | disposition home or self-care (01) ==
LOC: SC 14:00
PROVIDERS: ATTEND Nurse Practitioner Family
DX: G47.33 Obstructive sleep apnea (adult) (pediatric) (principal); E66.3 Overweight; Z68.29 Body mass index [BMI] 29.0-29.9, adult
CPT/HCPCS: 99213; G0463; 99212

== ENCOUNTER 2020-10-26 08:00 | Outpatient (CLI) | payer MEDICARE, BC ==
[2020-10-26 13:53] LABS: CALCIUM 9.1 mg/dL (8.5-10.3); CREATININE 0.8 mg/dL (0.4-1.0); POTASSIUM 4.2 mmol/L (3.5-5.0)
== END 2020-10-26 23:59 | disposition home or self-care (01) ==
LOC: LAB.WCP 08:00
PROVIDERS: ATTEND Nurse Practitioner Acute Care
DX: I48.19 Other persistent atrial fibrillation (principal)
CPT/HCPCS: 36415; 80048

== ENCOUNTER 2021-03-23 14:16 | Outpatient (CLI) | payer MEDICARE, BC ==
--- NOTE | 2021-03-24 14:40 | Mammography Report ---
BILATERAL DIGITAL SCREENING MAMMOGRAM 3D/2D: 03/23/2021 CLINICAL: Routine screening. Comparison is made to exams dated: 02/28/2020 mammogram, 12/05/2018 mammogram, 11/21/2017 mammogram, mammogram, and 04/09/2015 mammogram - [facility]. The tissue of both breas ts is heterogeneously dense. This may lower the sensitivity of mammography. There are benign calcifications in both breasts. No significant masses, calcifications, or other findings are seen in either breast. There has been no significant interval change. IMPRESSION: BENIGN There is no mammographic evidence of malignancy. A 1 year screening mammogram is recommended. This exam was interpreted at Station ID: [id number]. NOTE: For mammograms, a report in lay terms will be sent to the patient. Approximately 15% of breast malignancies will not be visualized mammographically. In the management of a palpable breast mass, a negative mammogram must not discourage biopsy of a clinically suspicious lesion. Electronically Signed By: Perfecto Atkinson M.D. [facility] [place]03/23/2021 15:20:37 ACR BI-RADS Category 2: Benign Finding(s) 3342F PARENCHYMAL PATTERN: (D) - The breast(s) demonstrate(s) heterogeneously dense fibroglandular javier chavez. BI-RADS CATEGORY: (2) - 2 RECOMMENDATION: (ANNUAL) - Recommend routine annual screening mammography. [id number] 1 year screening LATERALITY: (B)
== END 2021-03-23 14:17 | disposition home or self-care (01) ==
LOC: DI 14:16
DX: Z12.31 Encounter for screening mammogram for malignant neoplasm of breast (principal)

== ENCOUNTER 2021-03-29 08:00 | Outpatient (CLI) | payer MEDICARE, BC ==
[2021-03-29 12:31] LABS: BASOPHILS % (AUTO) 0.5 %; EOSINOPHILS # (AUTO) 0.1 10^3/uL (0.0-0.7); EOSINOPHILS % (AUTO) 3.2 %; HCT - HEMATOCRIT 43.6 % (37.0-47.0); HGB - HEMOGLOBIN 13.3 g/dL (12.0-16.0); LYMPHOCYTES # (AUTO) 0.7 10^3/uL (1.5-3.5); LYMPHOCYTES % (AUTO) 18.3 %; MEAN CORPUSCULAR HEMOGLOBIN 28.5 pg (27.0-31.0); MEAN CORPUSCULAR HGB CONC 30.5 g/dL (32.0-36.0); MEAN CORPUSCULAR VOLUME 93.6 fL (81.0-99.0); MEAN PLATELET VOLUME 10.8 fL (7.9-10.8); MONOCYTES # (AUTO) 0.5 10^3/uL (0.0-1.0); MONOCYTES % (AUTO) 11.1 %; NEUTROPHILS # (AUTO) 2.7 10^3/uL (1.5-6.6); NEUTROPHILS % (AUTO) 66.7 %; PLT - PLATELET COUNT 188 10^3/uL (130-450); RED BLOOD COUNT 4.66 10^6/uL (4.20-5.40); RED CELL DISTRIBUTION WIDTH 14.6 % (12.0-15.0); WHITE BLOOD COUNT 4.1 x10^3/uL (4.8-10.8)
[2021-03-29 12:50] LABS: ALBUMIN 4.1 g/dL (3.2-5.5); ALBUMIN/GLOBULIN RATIO 1.2 (1.0-2.2); ALKALINE PHOSPHATASE 74 IU/L (42-121); ALT ALANINE AMINOTRANSFERASE 14 IU/L (10-60); AST ASPARTATE AMINOTRANSFERASE 17 IU/L (10-42); BILIRUBIN,TOTAL 0.9 mg/dL (0.2-1.0); BUN - BLOOD UREA NITROGEN 17 mg/dL (6-20); CARBON DIOXIDE - CO2 30 mmol/L (21-32); CHLORIDE 101 mmol/L (101-111); CHOL/HDL RATIO 2.1 (<4.4); CHOLESTEROL 137 mg/dL; CREATININE 0.8 mg/dL (0.4-1.0); GFR - MDRD 70 (>89); GLUCOSE 102 mg/dL (70-100); HDL CHOLESTEROL 64 mg/dL; LDL CHOLESTEROL,CALCULATED 63 mg/dL; POTASSIUM 4.1 mmol/L (3.5-5.0); SODIUM 139 mmol/L (135-145); TOTAL PROTEIN 7.5 g/dL (6.7-8.2); TRIGLYCERIDES 51 mg/dL; VLDL CHOLESTEROL 10 mg/dL
[2021-03-29 12:52] LABS: THYROID STIMULATING HORMONE 1.52 uIU/mL (0.34-5.60)
== END 2021-03-29 23:59 | disposition home or self-care (01) ==
LOC: LAB.WCP 08:00
PROVIDERS: ATTEND Internal Medicine
DX: I10 Essential (primary) hypertension (principal); E03.9 Hypothyroidism, unspecified; I48.19 Other persistent atrial fibrillation
CPT/HCPCS: 36415; 80053; 80061; 83721; 84443; 85025

== ENCOUNTER 2021-07-26 08:18 | Outpatient (CLI) | payer MEDICARE, BC ==
[2021-07-26 12:44] LABS: BUN - BLOOD UREA NITROGEN 18 mg/dL (6-20); CALCIUM 9.2 mg/dL (8.5-10.3); CARBON DIOXIDE - CO2 30 mmol/L (21-32); CHLORIDE 101 mmol/L (101-111); CHOL/HDL RATIO 2.2 (<4.4); CHOLESTEROL 126 mg/dL; CREATININE 0.7 mg/dL (0.4-1.0); GFR - MDRD 81 (>89); GLUCOSE 97 mg/dL (70-100); HDL CHOLESTEROL 58 mg/dL; LDL CHOLESTEROL,CALCULATED 57 mg/dL; SODIUM 140 mmol/L (135-145); TRIGLYCERIDES 54 mg/dL; VLDL CHOLESTEROL 11 mg/dL
[2021-07-26 12:48] LABS: THYROID STIMULATING HORMONE 0.91 uIU/mL (0.34-5.60)
== END 2021-07-26 23:59 | disposition home or self-care (01) ==
LOC: LAB.WCP 08:18
PROVIDERS: ATTEND Internal Medicine
DX: I10 Essential (primary) hypertension (principal); I25.2 Old myocardial infarction; E03.9 Hypothyroidism, unspecified
CPT/HCPCS: 36415; 80048; 80061; 83721; 84443

== ENCOUNTER 2021-08-05 06:39 | Emergency (ER) | payer MEDICARE, BC ==
[2021-08-05 06:50] VITALS: BP 149/98
[2021-08-05] MEDS ORDERED: cephALEXin 250 MG CAPSULE PO STA (07:09)
[2021-08-05] MEDS ORDERED: PHENAZOPYRIDINE 100 MG TABLET PO STA (07:09)
--- NOTE | 2021-08-05 07:09 | ED Physician Documentation ---
PD HPI FEMALE - Stated complaint Stated Complaint: FEMALE - Chief complaint Chief Complaint: UTI - History obtained from History obtained from: Patient - History of Present Illness Timing - onset: Yesterday Timing - duration: Days (1) Timing - details: Abrupt onset, Still present Associated symptoms: Dysuria, Urinary frequency, Hematuria (this morning). No: Fever, Abdominal pain, Back pain Similar symptoms before: Diagnosis (not recent, but has had UTI in the past.) Recently seen: Not recently seen Review of Systems Constitutional: denies: Fever, Chills GI: denies: Abdominal Pain Musculoskeletal: denies: Back pain PD PAST MEDICAL HISTORY - Past Medical History Past Medical History: Yes Cardiovascular: Hypertension, High cholesterol, [place], Atrial fibrillation Respiratory: None Neuro: None Endocrine/Autoimmune: HyPOthyroidism GI: GERD REGIONAL RECRUITER: None : None, Other HEENT: None Psych: None Musculoskeletal: None Derm: Eczema - Past Surgical History Past Surgical History: Yes Ortho: Arthroscopic surgery /REGIONAL RECRUITER: Hysterectomy - Present Medications Home Medications: Ambulatory Orders Medication Instructions Recorded Confirmed Levothyroxine Sodium [Levothroid] 75 mcg PO DAILY 07/07/13 08/05/21 Cholecalciferol (Vitamin D3) 2,000 unit PO BID 10/20/13 08/05/21 [Vitamin D-3] Flaxseed Oil [Flax Oil] 1,000 mg PO BID 10/20/13 08/05/21 Pravastatin Sodium 40 mg PO QPM 10/20/13 08/05/21 Calcium Carbonate [Calcium] 600 mg PO BID 08/05/21 08/05/21 Calcium Carbonate/Mag Carb 1 each PO 08/05/21 [Magnebind 400 Tablet] Pantoprazole Sodium 40 mg PO QPM 08/05/21 08/05/21 Phenazopyridine HCl [Pyridium] 100 mg PO TID PRN #15 tablet 08/05/21 Sotalol [Betapace] 40 mg PO BID 08/05/21 08/05/21 cephALEXin [Keflex] 500 mg PO TID 5 Days #15 cap 08/05/21 lisinopriL [Lisinopril] 20 mg PO QPM 08/05/21 08/05/21 - Allergies Allergies/Adverse Reactions: Allergies Allergy/AdvReac Type Severity Reaction Status Date / Time ibuprofen Allergy Intermediate upset Verified 08/05/21 06:50 stomach - Social History Does the pt smoke?: No Smoking Status: Never smoker Does the pt drink ETOH?: No Does the pt have substance abuse?: No - Immunizations Immunizations are current?: Yes - POLST Patient has POLST: No PD ED PE NORMAL - Vitals Vital signs reviewed: Yes - General General: Alert and oriented X 3, Well developed/nourished - Abdomen Abdomen: Soft, Non tender - Female Female : Deferred - Rectal Rectal: Deferred - Back Back: No CVA TTP - Derm Derm: Normal color Results - Vitals Vitals: Vital Signs - 24 hr 08/05/21 06:48 Temperature 36.4 C L Heart Rate 98 Respiratory 16 Rate Blood Pressure 149/98 H O2 Saturation 97 Oxygen O2 Source Room air PD MEDICAL DECISION MAKING - ED course Complexity details: reviewed results, considered differential (Consistent with UTI.), d/w patient Departure - Departure Disposition: 01 Home, Self Care Clinical Impression: Cystitis Condition: Stable Record reviewed to determine appropriate education?: Yes Instructions: ED UTI Cystitis Female Follow-Up: Elie Nolan MD [Primary Care Provider] - Prescriptions: cephALEXin [Keflex] 500 mg PO TID 5 Days #15 cap Phenazopyridine HCl [Pyridium] 100 mg PO TID PRN #15 tablet PRN Reason: Abdominal Pain Comments: Well-hydrated. Continue usual medications. Cephalexin 3 times a day for 5 days. Add phenazopyridine every 6-8 hours if needed for urinary discomfort. Tylenol is okay to. Urine culture should result in a couple of days and will call you if we need to change the antibiotic choice based on that. I would anticipate improvement over the next couple of days. Recheck if worsening to include nausea, fever, back pain or other concerns. I transmitted your prescriptions to [facility] pharmacy.
[2021-08-05 07:17] LABS: BILIRUBIN,URINE NEGATIVE (NEGATIVE); GLUCOSE, URINE (UA) NEGATIVE (NEGATIVE); KETONES,URINE (UA) NEGATIVE (NEGATIVE); LEUKOCYTE ESTERASE, URINE MODERATE (NEGATIVE); NITRITE,URINE NEGATIVE (NEGATIVE); OCCULT BLOOD,URINE LARGE (NEGATIVE); PROTEIN,URINE NEGATIVE (NEGATIVE); UROBILINOGEN,URINE 0.2 (NORMAL) E.U./dL (NORMAL)
[2021-08-05 07:19] LABS: CLARITY,URINE CLEAR (CLEAR)
[2021-08-05 07:29] LABS: WBC,URINE >25 /HPF (0-5)
[2021-08-05 07:30] LABS: BACTERIA,URINE Few /HPF (None Seen); SQUAMOUS EPITHELIAL CELL,UR RARE Squamous (<= Few); WBC CLUMPS,URINE PRESENT; YEAST,URINE PRESENT
== END 2021-08-05 07:47 | disposition home or self-care (01) ==
LOC: ED 06:39
DX: N30.90 Cystitis, unspecified without hematuria (principal)
CPT/HCPCS: 81001; 87077; 87086; 87181; 99283; A9270; 81003

== ENCOUNTER 2021-11-02 08:36 | Outpatient (CLI) | payer MEDICARE, BC ==
[2021-11-02 12:33] LABS: CALCIUM 9.2 mg/dL (8.5-10.3); CREATININE 0.7 mg/dL (0.4-1.0); POTASSIUM 4.3 mmol/L (3.5-5.0)
== END 2021-11-02 08:37 | disposition home or self-care (01) ==
LOC: LAB.N 08:36
PROVIDERS: ATTEND Internal Medicine
DX: E03.9 Hypothyroidism, unspecified (principal)
CPT/HCPCS: 36415; 80048

== ENCOUNTER 2021-11-11 13:09 | Outpatient (CLI) | payer MEDICARE, BC | END 2021-11-11 13:10 | disposition home or self-care (01) | LOC: RT 13:09 | PROVIDERS: ATTEND Internal Medicine | DX: R06.09 Other forms of dyspnea (principal) | CPT/HCPCS: 94010; 94729 ==

== ENCOUNTER 2021-12-02 13:23 | Outpatient (CLI) | payer MEDICARE, BC ==
--- NOTE | 2021-12-03 08:52 | CT Report ---
PROCEDURE: CHEST WO INDICATIONS: PULMONARY NODULE TECHNIQUE: Noncontrast 1mm axial images were acquired from the pulmonary apices to the posterior costophrenic an gles. Axial 5 mm soft tissue kernel reconstructions were performed as well as 8 mm axial MIP and cor onal and sagittal 5 mm reformations. For radiation dose reduction, the following was used: automate d exposure control, adjustment of mA and/or kV according to patient size. COMPARISON: CT angiogram of the chest with and without contrast dated 10/06/2017 FINDINGS: Image quality: Excellent. Lungs and pleura: Stable 4 mm right apical pulmonary nodule, image 74/4. Stable 6 mm pulmonary nodul e, current image 143/4, right lower lobe. No acute air space opacities. No pleural effusions or pneu mothorax. Central and peripheral airways are patent and normal in caliber. Mediastinum: Heart size is normal. No pericardial effusion. No mediastinal adenopathy by size crit eria. Thoracic aorta and central pulmonary arteries are normal in size. Esophagus is normal in aida alem. Small hiatal hernia. Bones and chest wall: No suspicious bony lesions. No vertebral body compression fractures. No axil loren or supraclavicular adenopathy by size criteria. Thyroid is grossly unremarkable. Abdomen: Visualized upper abdominal solid organs and bowel loops appear normal in the absence of con trast. IMPRESSION: 1. The 2 previously described pulmonary nodules have been stable x4 years, and are benign pulmonary n odules. No further follow-up of these nodules is suggested. 2. No evidence of acute pulmonary process. CLINICAL RECOMMENDATION STATEMENTS: In patients <35 years with an ITN detected on CT, MRI, or extrathyroidal ultrasound, the Committee re commends further evaluation with dedicated thyroid ultrasound if the nodule is "e1 cm and has no susp icious imaging features, and if the patient has normal life expectancy. In patients "e35 years with an ITN detected on CT, MRI, or extrathyroidal ultrasound, the Committee r ecommends further evaluation with dedicated thyroid ultrasound if the nodule is "e1.5 cm and has no s uspicious imaging features, and if the patient has normal life expectancy. (ACR, 2014) Reviewed by: Robert Hu MD on 12/03/2021 8:51 AM PDT Approved by: Robert Hu MD on 12/03/2021 8:51 AM PDT Station ID: [id number]
== END 2021-12-02 13:24 | disposition home or self-care (01) ==
LOC: DI 13:23
PROVIDERS: ATTEND Internal Medicine
DX: R91.8 Other nonspecific abnormal finding of lung field (principal)

== ENCOUNTER 2022-01-30 12:01 | Emergency (ER) | payer MEDICARE, BC ==
[2022-01-30 12:23] VITALS: BP 147/85
[2022-01-30 12:31] LABS: BILIRUBIN,URINE NEGATIVE (NEGATIVE); GLUCOSE, URINE (UA) NEGATIVE (NEGATIVE); KETONES,URINE (UA) NEGATIVE (NEGATIVE); LEUKOCYTE ESTERASE, URINE SMALL (NEGATIVE); NITRITE,URINE NEGATIVE (NEGATIVE); OCCULT BLOOD,URINE MODERATE (NEGATIVE); PROTEIN,URINE NEGATIVE (NEGATIVE); UROBILINOGEN,URINE 0.2 (NORMAL) E.U./dL (NORMAL)
[2022-01-30 12:33] LABS: CLARITY,URINE HAZY (CLEAR)
[2022-01-30 12:40] LABS: BACTERIA,URINE Few /HPF (None Seen); SQUAMOUS EPITHELIAL CELL,UR MOD Squamous (<= Few); WBC CLUMPS,URINE PRESENT; WBC,URINE >25 /HPF (0-5)
--- NOTE | 2022-01-30 12:45 | ED Physician Documentation ---
PD HPI FEMALE - Stated complaint Stated Complaint: UTI - Chief complaint Chief Complaint: UTI - History obtained from History obtained from: Patient - History of Present Illness Timing - onset: Yesterday Timing - duration: Days (1) Timing - details: Gradual onset, Still present Associated symptoms: Dysuria, Urinary frequency Similar symptoms before: Diagnosis (UTI) Recently seen: Not recently seen - Additional information Additional information: 76-year-old Jessica García has a history of frequent urinary tract infections and has a prolapsed bladder. She does get some urinary retention periodically and she has developed symptoms of urinary urgency frequency and dysuria beginning yesterday as well as some symptoms of prolapse. She has not had a fever she has not had nausea she denies any flank pain. Review of Systems Constitutional: denies: Fever Nose: denies: Congestion Throat: denies: Sore throat Cardiac: denies: Chest pain / pressure Respiratory: denies: Dyspnea, Cough, Wheezing GI: denies: Abdominal Pain, Nausea, Vomiting, Constipation, Diarrhea : reports: Dysuria, Frequency Skin: denies: Rash Musculoskeletal: denies: Neck pain, Back pain, Extremity pain, Extremity swe lling Neurologic: denies: Generalized weakness, Focal weakness, Numbness PD PAST MEDICAL HISTORY - Past Medical History Cardiovascular: Hypertension, High cholesterol, [place], Atrial fibrillation Respiratory: None Neuro: None Endocrine/Autoimmune: HyPOthyroidism GI: GERD 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: None : None, Other HEENT: None Psych: None Musculoskeletal: None Derm: Eczema - Past Surgical History Past Surgical History: Yes Ortho: Arthroscopic surgery /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: Hysterectomy - Present Medications Home Medications: Ambulatory Orders Medication Instructions Recorded Confirmed Levothyroxine Sodium [Levothroid] 75 mcg PO DAILY 07/07/13 08/05/21 Cholecalciferol (Vitamin D3) 2,000 unit PO BID 10/20/13 08/05/21 [Vitamin D-3] Pravastatin Sodium 40 mg PO QPM 10/20/13 08/05/21 flaxseed oiL [Flax Oil] 1,000 mg PO BID 10/20/13 08/05/21 Calcium Carbonate [Calcium] 600 mg PO BID 08/05/21 08/05/21 Calcium Carbonate/Mag Carb 1 each PO 08/05/21 [Magnebind 400 Tablet] Pantoprazole Sodium 40 mg PO QPM 08/05/21 08/05/21 Phenazopyridine HCl [Pyridium] 100 mg PO TID PRN #15 tablet 08/05/21 Sotalol [Betapace] 40 mg PO BID 08/05/21 08/05/21 cephALEXin [Keflex] 500 mg PO TID 5 Days #15 cap 08/05/21 lisinopriL [Lisinopril] 20 mg PO QPM 08/05/21 08/05/21 cephALEXin [Keflex] 500 mg PO TID #21 cap 01/30/22 - Allergies Allergies/Adverse Reactions: Allergies Allergy/AdvReac Type Severity Reaction Status Date / Time ibuprofen AdvReac Intermediate upset Verified 01/30/22 12:23 stomach - Social History Does the pt smoke?: No Smoking Status: Never smoker Does the pt drink ETOH?: No Does the pt have substance abuse?: No - Immunizations Immunizations are current?: Yes - POLST Patient has POLST: No PD ED PE NORMAL - Vitals Vital signs reviewed: Yes (hypertensive ) - General General: Alert and oriented X 3, No acute distress, Well developed/nourished - HEENT HEENT: Atraumatic, PERRL, EOMI - Cardiac Cardiac: RRR, No murmur - Respiratory Respiratory: No respiratory distress, Clear bilaterally - Abdomen Abdomen: Normal bowel sounds, Soft, Non tender, Non distended, No organomegaly - Back Back: No CVA TTP, No spinal TTP - Derm Derm: Normal color, Warm and dry, No rash - Extremities Extremities: No deformity, No edema - Neuro Neuro: Alert and oriented X 3, triage specialist 2-12 intact, No motor deficit, No sensory deficit, Normal speech Eye Opening: Spontaneous Motor: Obeys Commands Verbal: Oriented GCS Score: 15 - Psych Psych: Normal mood, Normal affect Results - Vitals Vitals: Vital Signs - 24 hr 01/30/22 12:19 Temperature 36.7 C Heart Rate 76 Respiratory 14 Rate Blood Pressure 147/85 H O2 Saturation 98 Oxygen O2 Source Room air - Labs Labs: Laboratory Tests 01/30/22 12:26 Urine Color YELLOW Urine Clarity HAZY Urine pH 7.0 Ur Specific [place] 1.010 Urine Protein NEGATIVE Urine Glucose (UA) NEGATIVE Urine Ketones NEGATIVE Urine Occult Blood MODERATE H Urine Nitrite NEGATIVE Urine Bilirubin NEGATIVE Urine Urobilinogen 0.2 (NORMAL) Ur Leukocyte Esterase SMALL H Urine RBC 11-25 H Urine WBC >25 H Urine WBC Clumps PRESENT Ur Epithelial Cells MOD Transitional H Ur Squamous Epith Cells MOD Squamous H Urine Bacteria Few Ur Microscopic Review INDICATED Urine Culture Comments NOT INDICATED PD MEDICAL DECISION MAKING - ED course Complexity details: considered differential, d/w patient ED course: 76-year-old female with a history of frequent urinary tract infections is symptomatic today and has a urine that has wants white blood cells in it even though does make grade for culture this looks like an infection. Departure - Departure Disposition: 01 Home, Self Care Clinical Impression: Cystitis Condition: Stable Instructions: ED UTI Cystitis Female Follow-Up: Elie Nolan MD [Primary Care Provider] - Prescriptions: cephALEXin [Keflex] 500 mg PO TID #21 cap Comments: Jessica Glover, today it looks like there is infection in the urine and no significant post void residual. (you are not retaining urine now) We have es-scribed keflex to the [facility] in [place]. Discharge Date/Time: 01/30/22 12:57
== END 2022-01-30 12:57 | disposition home or self-care (01) ==
LOC: ED 12:01
DX: N30.90 Cystitis, unspecified without hematuria (principal)
CPT/HCPCS: 81001; 81003; 87086; 99282; 99283

== ENCOUNTER 2022-03-15 08:54 | Outpatient (CLI) | payer MEDICARE, BC ==
--- NOTE | 2022-03-16 09:51 | Mammography Report ---
BILATERAL DIGITAL SCREENING MAMMOGRAM 3D/2D: 03/15/2022 CLINICAL: Routine screening. Comparison is made to exams dated: 03/23/2021 mammogram, 02/28/2020 mammogram, 12/05/2018 mammogram, 05/2018 mammogram, and 05/23/2016 mammogram - [facility]. There are scattered fibr oglandular elements in both breasts. There are benign calcifications in both breasts. No significant masses, calcifications, or other findings are seen in either breast. There has been no significant interval change. IMPRESSION: BENIGN There is no mammographic evidence of malignancy. A 1 year screening mammogram is recommended. Based on the Tyrer Cuzick model (a risk assessment model) the patients lifetime risk is 2.0% and her 10 year risk is 0.0%. According to the ACR, ACS, and NCCN guidelines, an annual breast MRI exam nish g with mammogram is recommended if the patients lifetime risk is 20% or greater. This exam was interpreted at Station ID: [id number]. NOTE: For mammograms, a report in lay terms will be sent to the patient. Approximately 15% of breast malignancies will not be visualized mammographically. In the management of a palpable breast mass, a negative mammogram must not discourage biopsy of a clinically suspicious lesion. Electronically Signed By: Romina calero/elsa:03/15/2022 11:54:50 ACR BI-RADS Category 2: Benign Finding(s) 3342F PARENCHYMAL PATTERN: (A) - The breast(s) demonstrate(s) scattered fibroglandular densities. BI-RADS CATEGORY: (2) - 2 RECOMMENDATION: (ANNUAL) - Recommend routine annual screening mammography. [id number] 1 year screening LATERALITY: (B)
== END 2022-03-15 08:55 | disposition home or self-care (01) ==
LOC: DI 08:54
DX: Z12.31 Encounter for screening mammogram for malignant neoplasm of breast (principal)

== ENCOUNTER 2022-06-13 04:11 | Emergency (ER) | payer MEDICARE, BC ==
--- NOTE | 2022-06-13 04:34 | ED Physician Documentation ---
History of Present Illness - Stated complaint Stated Complaint: SOA, COUGH; CP - Chief complaint Chief Complaint: Cardiac - History obtained from History obtained from: Patient - Additonal information Additional information: The patient comes to the emergency department with chief complaint of a cough and chest tightness for approximately the last week. She states its been getting a bit worse over the last few days. The patient states she has a history of pneumonia previously wanted to make sure that she does not the same. She denies any fevers or chills. No nausea or vomiting. She states that the symptoms initially started when it was very smoky and she thought maybe it is just an allergy to the smoke. However, symptoms have persisted since. The patient denies any underlying lung disorders. She is not a smoker. No other complaints at this time. She has a history of atrial fibrillation and has had 2 ablations, with the second one continuing to be successful. No swelling in her lower extremities. Review of Systems Ten Systems: 10 systems reviewed and negative Constitutional: reports: Reviewed and negative Eyes: reports: Reviewed and negative Ears: reports: Reviewed and negative Nose: reports: Rhinorrhea / runny nose, Congestion Throat: reports: Reviewed and negative Cardiac: reports: Reviewed and negative Respiratory: reports: Cough GI: reports: Reviewed and negative : reports: Reviewed and negative Skin: reports: Reviewed and negative Musculoskeletal: reports: Reviewed and negative Neurologic: reports: Reviewed and negative Psychiatric: reports: Reviewed and negative Endocrine: reports: Reviewed and negative Immunocompromised: reports: Reviewed and negative PD PAST MEDICAL HISTORY - Past Medical History Cardiovascular: Hypertension, High cholesterol, [place], Atrial fibrillation Respiratory: None Neuro: None Endocrine/Autoimmune: HyPOthyroidism GI: GERD 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 : None, Other HEENT: None Psych: None Musculoskeletal: None Derm: Eczema - Past Surgical History Past Surgical History: Yes Ortho: Arthroscopic surgery /ASSISTANT MERCHANDISER: Hysterectomy - Present Medications Home Medications: Ambulatory Orders Medication Instructions Recorded Confirmed Levothyroxine Sodium [Levothroid] 75 mcg PO DAILY 07/07/13 06/13/22 Cholecalciferol (Vitamin D3) 2,000 unit PO BID 10/20/13 06/13/22 [Vitamin D-3] Pravastatin Sodium 40 mg PO QPM 10/20/13 06/13/22 flaxseed oiL [Flax Oil] 1,000 mg PO BID 10/20/13 06/13/22 Calcium Carbonate [Calcium] 600 mg PO BID 08/05/21 06/13/22 Pantoprazole Sodium 40 mg PO QPM 08/05/21 06/13/22 Sotalol [Betapace] 40 mg PO BID 08/05/21 06/13/22 lisinopriL [Lisinopril] 20 mg PO QPM 08/05/21 06/13/22 Apixaban [Eliquis] 5 mg PO BID 06/13/22 06/13/22 Azelastine HCl [Astepro Allergy] 2 spray NS DAILY PRN 06/13/22 06/13/22 Magnesium Oxide [Magnesium] 400 mg PO 06/13/22 - Allergies Allergies/Adverse Reactions: Allergies Allergy/AdvReac Type Severity Reaction Status Date / Time ibuprofen AdvReac Intermediate upset Verified 06/13/22 04:28 stomach - Social History Does the pt smoke?: No Smoking Status: Never smoker Does the pt drink ETOH?: No Does the pt have substance abuse?: No - Immunizations Immunizations are current?: Yes - POLST Patient has POLST: No PD ED PE NORMAL - Vitals Vital signs reviewed: Yes - General General: Alert and oriented X 3, No acute distress, Well developed/nourished - HEENT HEENT: Atraumatic, PERRL, EOMI, Moist mucous membranes - Neck Neck: Supple, no meningeal sign - Cardiac Cardiac: RRR, No murmur, Strong equal pulses - Respiratory Respiratory: No respiratory distress, Clear bilaterally - Abdomen Abdomen: Soft, Non tender, Non distended - Derm Derm: Normal color, Warm and dry, No rash - Extremities Extremities: No deformity, No edema - Neuro Neuro: Alert and oriented X 3 - Psych Psych: Normal mood, Normal affect Results - Vitals Vitals: Vital Signs - 24 hr 06/13/22 06/13/22 04:15 04:41 Temperature 36.5 C Heart Rate 81 78 Respiratory 16 14 Rate Blood Pressure 183/97 H 170/82 H O2 Saturation 97 99 Oxygen O2 Source Room air - EKG (time done) 0415 Rate: Rate (enter#) (80) Rhythm: NSR Faber: Normal Intervals: Normal OR QRS: Normal Ischemia: Normal ST segments Compare to prior EKG: Unchanged from prior EKG Computer interpretation: Agree with computer - Rads (name of study) Chest x-ray Radiology: Prelim report reviewed (Negative) PD MEDICAL DECISION MAKING - ED course Complexity details: reviewed results, re-evaluated patient, considered differential, d/w patient ED course: The patient was overall very well-appearing, but given the duration of her symptoms and her elderly age, the patient was worked up with chest x-ray and viral panel. The patient had an EKG showing normal sinus rhythm, and her chest x-ray was negative. I discussed with the patient that her symptoms most likely are caused by one of the many upper respiratory viruses that are going around right now, and will be expected to pass on their own. We have discussed symptomatic management at home, as well as the usual indications for return. I have discussed with the patient that we will call her with her viral panel results, when they come back. We have discussed the usual indications for return. Departure - Departure Disposition: 01 Home, Self Care Clinical Impression: Upper respiratory tract infection Qualifiers: URI type: unspecified viral URI Qualified Code(s): J06.9 - Acute upper respiratory infection, unspecified Condition: Stable Instructions: ED Viral Syndrome Comments: Your chest x-ray looks very good. A viral panel has been sent and is pending at this time. You will be called for any positive results. You most likely have one of the many upper respiratory viruses that are going around right now and causing cold and flulike symptoms. In general, these can last anywhere from several days to a couple of weeks, and can cause fevers, body aches, cough, and nasal/sinus congestion. However, although a virus can make a person feel miserable, viruses do not respond to antibiotics and ultimately, a viral illness will be gotten rid of by the body itself. It is important that you drink plenty of fluids and get rest as much as possible. Please follow-up with your primary doctor as needed. If you would like to monitor your viral panel results yourself, you may go to our hospital website at [email or web address], click on the "my [email or web address]" tab, and sign up for the patient portal.
[2022-06-13 05:28] VITALS: BP 172/83
[2022-06-13 05:34] LABS: B. PARAPERTUSSIS- RESP PCR PAN NOT DETECTED; B. PERTUSSIS- RESP PCR PANEL NOT DETECTED; C. PNEUMONIAE- RESP PCR PANEL NOT DETECTED; CORONAVIRUS 229E-RESP PCR NOT DETECTED; CORONAVIRUS HKU1-RESP PCR NOT DETECTED; CORONAVIRUS NL63-RESP PCR NOT DETECTED; CORONAVIRUS OC43-RESP PCR NOT DETECTED; HUMAN METAPNEUMOVIRUS NOT DETECTED; INFLUENZA A- RESP PCR PANEL NOT DETECTED; INFLUENZA B - RESP PCR PANEL NOT DETECTED; M. PNEUMONIAE- RESP PCR PANEL NOT DETECTED; PARAINFLUENZA VIRUS 1 NOT DETECTED; PARAINFLUENZA VIRUS 2 NOT DETECTED; PARAINFLUENZA VIRUS 3 NOT DETECTED; PARAINFLUENZA VIRUS 4 NOT DETECTED; RHINOVIRUS/ENTEROVIRUS NOT DETECTED; RSV- RESP PCR PANEL NOT DETECTED; SARS-CoV-2 -RESP PCR PANEL NOT DETECTED
--- NOTE | 2022-06-13 08:25 | XRAY Report ---
PROCEDURE: Chest 1 View X-Ray INDICATIONS: chest pain TECHNIQUE: One view of the chest was acquired. COMPARISON: CT chest 12/02/2021 FINDINGS: Surgical changes and devices: None. Lungs and pleura: No pleural effusions or pneumothorax. Lungs are clear. Mediastinum: Mediastinal contours appear normal. Heart size is enlarged. Bones and chest wall: No suspicious bony lesions. Overlying soft tissues appear unremarkable. IMPRESSION: No acute pulmonary process. The above findings are concordant with preliminary report. Reviewed by: Ira Solomon MD on 06/13/2022 8:23 AM PDT Approved by: Ira Solomon MD on 06/13/2022 8:23 AM PDT Station ID: [id number]
== END 2022-06-13 05:25 | disposition home or self-care (01) ==
LOC: ED 04:11
DX: J06.9 Acute upper respiratory infection, unspecified (principal); Z20.822 Contact with and (suspected) exposure to COVID-19
CPT/HCPCS: 87633; 93005; 99282; 99284

== ENCOUNTER 2022-06-29 11:10 | Outpatient (CLI) | payer MEDICARE, BC ==
--- NOTE | 2022-06-29 12:35 | SLEEP CARE CONSULTATION ---
Information from patient questionnaire entered by Zari Sapp. I have reviewed and concur with the information entered by Zari Sapp. This document represents the service I personally performed and the decisions made by me, Marisa Welch ARNP. History of Present Illness Service Date and Time: 06/29/2022 1110 Previous diagnosis: Mild, Obstructive Sleep Apnea-Hypopnea Syndrome AHI: 12.6 (in 2020) Reason for follow up: annual (LAST SEEN 10/2020) Equipment type: Dental Appliance (with positional therapy) Prior sleep studies: No Type of Sleep Study: Polysomnography HPI additional information: GERHARD CAMPBELL was diagnosed to have mild, AHI 12.6, obstructive sleep apnea- hypopnea syndrome and returned today for Positional and Oral appliance therapy annual follow-up. Sleep Study - Results Type of Sleep Study: Polysomnography Prior sleep studies: No CPAP Compliance Data Compliance data discussion: She did have an oral appliance made in Jun/Jul 2021. She only used it until October 2020. It made her jaw sore and she did not tolerate that very much. She has been sleeping on her side and her has told her that her snoring has reduced. Subjective Missed days of use due to: reports: other (mouth/jaw pain with oral appliance) Initial [place] Sleepiness Scale score: 9 (in 2019) Current [place] Sleepiness Scale score: 6 (06/29/2022) Allergies and Home Medications Drug allergies reviewed: Yes (ibuprofen) Home medication list reviewed: Yes (some dose changes; updated in EMR) Review of Systems Review of systems same as previous: No (Heart ablations x 2, Jun 2021; Sep 2021 for Afib) Physical Exam Vital signs obtained and entered by: ZARI Patton MA Blood Pressure: 126/74 (LEFT ARM) Cuff size: regular Heart Rate: 87 O2 Saturation: 98 Height: 5 ft 6 in Weight: 186 lb 6.4 oz Body Mass Index: 30.0 BMI Classification: Obese Impression and Plan 1. Obstructive Sleep Apnea-Hypopnea Syndrome, mild. Patient did obtain an oral appliance but could not tolerate it in her mouth. She had jaw soreness and stopped after about 4 months. She states she did not feel it was doing anything for her. She has been sleeping on non-supine because we had talked about positional therapy in combination with the oral appliance. Her has told her that her snoring has reduced when she is sleeping on her sides. She has had more issues with her heart. She is having difficulty catching her breath and they ended up doing 2 heart ablations to reduce her atrial fibrillation. She states it has been successful and she has less difficulty breathing but she still notes some shortness of breath at night when she is in her bed. I recommended strongly to patient that she should try CPAP therapy as this will reduce stress on her heart at night and help support her A. fib treatments. Patient has decided to try CPAP therapy. Patient's apnea severity and rationale for treatment to reduce apnea, improve sleep quality and reduce cardiovascular and cerebrovascular events was reviewed. As mentioned above, the patient will be started on nasal autoCPAP therapy with pressure set at 4-15 cmH2O. Compliance guidelines also reviewed. A copy of compliance guidelines will be given for reference at check out. Because the apnea is more severe supine, I instructed to avoid sleeping supine using pillow positioning until able to start CPAP use. She voiced understanding. 2. Obesity, unspecified. Currently patients BMI is 30.0. Obesity increases the risk of apnea, CPAP pressure requirements and overall health risks especially cardiovascular and diabetes. Thus patient is advised to lose weight. * Nasal auto CPAP therapy, pressure at 4-15 cm H2O. * Attempt to lose weight. * Avoid supine sleep until using CPAP. * Return one month after CPAP obtained. I will assess response to therapy and compliance at that time. Counseling Topics: Sleeping position, Weight loss health impact Visit Type: In Office Time Spent with Patient (minutes): 23 Provider Statement: I spent 100% of the Face to Face Visit with the patient with greater than 50% spent counseling the patient and coordination of care.
[2022-06-29 12:36] VITALS: BP 126/74
== END 2022-06-29 11:11 | disposition home or self-care (01) ==
LOC: SC 11:10
PROVIDERS: ATTEND Nurse Practitioner Family
DX: G47.33 Obstructive sleep apnea (adult) (pediatric) (principal); E66.9 Obesity, unspecified; Z68.30 Body mass index [BMI] 30.0-30.9, adult
CPT/HCPCS: 99213; G0463; 99212

== ENCOUNTER 2022-08-23 19:17 | Emergency (ER) | payer MEDICARE, BC ==
[2022-08-23 20:07] LABS: BILIRUBIN,URINE NEGATIVE (NEGATIVE); GLUCOSE, URINE (UA) NEGATIVE (NEGATIVE); KETONES,URINE (UA) NEGATIVE (NEGATIVE); LEUKOCYTE ESTERASE, URINE MODERATE (NEGATIVE); NITRITE,URINE NEGATIVE (NEGATIVE); OCCULT BLOOD,URINE LARGE (NEGATIVE); PH,URINE 6.5 PH (5.0-7.5); PROTEIN,URINE TRACE mg/dL (NEGATIVE); UROBILINOGEN,URINE 0.2 (NORMAL) E.U./dL (NORMAL)
[2022-08-23 20:09] LABS: CLARITY,URINE HAZY (CLEAR)
[2022-08-23 20:13] LABS: BACTERIA,URINE Rare /HPF (None Seen); RBC,URINE TNTC /HPF (0-5); SQUAMOUS EPITHELIAL CELL,UR RARE Squamous (<= Few); WBC,URINE >25 /HPF (0-5)
[2022-08-23] MEDS ORDERED: cephALEXin 250 MG CAPSULE PO STA (22:36)
[2022-08-23] MEDS ORDERED: PHENAZOPYRIDINE 100 MG TABLET PO STA (22:40)
--- NOTE | 2022-08-23 22:41 | ED Physician Documentation ---
History of Present Illness - Stated complaint Stated Complaint: FEMALE - Chief complaint Chief Complaint: Abd Pain - History obtained from History obtained from: Patient - History of Present Illness Timing: Today Pain level max: 1 Pain level now: 1 - Additonal information Additional information: 77-year-old female presents to the emergency department with dysuria starting today. Feels similar to prior UTIs. Worse with urination, nothing makes it better. No fever. No vomiting. No back pain. No abdominal pain Review of Systems Constitutional: denies: Fever GI: denies: Vomiting Skin: denies: Rash PD PAST MEDICAL HISTORY - Past Medical History Cardiovascular: Hypertension, High cholesterol, [place], Atrial fibrillation Respiratory: None Neuro: None Endocrine/Autoimmune: HyPOthyroidism GI: GERD EXPELLER OPERATOR: None : None, Other HEENT: None Psych: None Musculoskeletal: None Derm: Eczema - Past Surgical History Past Surgical History: Yes Ortho: Arthroscopic surgery /EXPELLER OPERATOR: Hysterectomy - Present Medications Home Medications: Ambulatory Orders Medication Instructions Recorded Confirmed Levothyroxine Sodium [Levothroid] 75 mcg PO DAILY 07/07/13 08/23/22 Pravastatin Sodium 40 mg PO QPM 10/20/13 08/23/22 Sotalol [Betapace] 40 mg PO BID 08/05/21 08/23/22 lisinopriL [Lisinopril] 20 mg PO QPM 08/05/21 08/23/22 Apixaban [Eliquis] 5 mg PO BID 06/13/22 08/23/22 cephALEXin [Keflex] 500 mg PO Q6H #20 cap 08/23/22 - Allergies Allergies/Adverse Reactions: Allergies Allergy/AdvReac Type Severity Reaction Status Date / Time ibuprofen AdvReac Intermediate upset Verified 08/23/22 19:49 stomach - Social History Does the pt smoke?: No Smoking Status: Never smoker Does the pt drink ETOH?: No Does the pt have substance abuse?: No - Immunizations Immunizations are current?: Yes - POLST Patient has POLST: No PD ED PE NORMAL - Vitals Vital signs reviewed: Yes - General General: Alert and oriented X 3, No acute distress - HEENT HEENT: Moist mucous membranes - Respiratory Respiratory: No respiratory distress - Abdomen Abdomen: Soft, Non tender, Non distended - Back Back: No CVA TTP - Derm Derm: Warm and dry - Neuro Neuro: Alert and oriented X 3 - Psych Psych: Normal mood, Normal affect Results - Vitals Vitals: Vital Signs - 24 hr 08/23/22 19:43 Temperature 36.5 C Heart Rate 68 Respiratory 16 Rate Blood Pressure 170/79 H O2 Saturation 96 Oxygen O2 Source Room air - Labs Labs: Laboratory Tests 08/23/22 20:03 Urine Color YELLOW Urine Clarity HAZY Urine pH 6.5 Ur Specific [place] 1.010 Urine Protein TRACE Urine Glucose (UA) NEGATIVE Urine Ketones NEGATIVE Urine Occult Blood LARGE H Urine Nitrite NEGATIVE Urine Bilirubin NEGATIVE Urine Urobilinogen 0.2 (NORMAL) Ur Leukocyte Esterase MODERATE H Urine RBC TNTC H Urine WBC >25 H Ur Squamous Epith Cells RARE Squamous Urine Bacteria Rare Ur Microscopic Review INDICATED Urine Culture Comments INDICATED PD Medical Decision Making - ED course Complexity details: reviewed results, considered differential, d/w patient ED course: Patient with UTI. Will place on Keflex for home. She is well-appearing, nontoxic. Afebrile. Given a dose of Keflex here. A urinalysis was ordered and the results are positive for UTI Also given a dose of Pyridium. No evidence of pyelonephritis, sepsis. Patient counseled regarding signs and symptoms for which I believe and urgent re-evaluation would be necessary. Patient with good understanding of and agreement to plan and is comfortable going home at this time This document was made in part using voice recognition software. While efforts are made to proofread this document, sound alike and grammatical errors may occur. Departure - Departure Disposition: Home, Self Care Clinical Impression: UTI (urinary tract infection) Qualifiers: Urinary tract infection type: acute cystitis Hematuria presence: without hematuria Qualified Code(s): N30.00 - Acute cystitis without hematuria Instructions: ED UTI Cystitis Female Follow-Up: Elie Nolan MD [Primary Care Provider] - Prescriptions: cephALEXin [Keflex] 500 mg PO Q6H #20 cap Comments: Your prescription was sent to [facility] in [place]. Please take all antibiotics until gone. Please return if you worsen. Your urine was sent for culture and if an antibiotic change is needed, we will call you.
[2022-08-23 22:48] VITALS: BP 150/80
== END 2022-08-23 22:47 | disposition home or self-care (01) ==
LOC: ED 19:17
DX: N30.00 Acute cystitis without hematuria (principal)
CPT/HCPCS: 81001; 87077; 87086; 87181; 99283; A9270; 81003

== ENCOUNTER 2022-09-12 08:06 | Outpatient (CLI) | payer MEDICARE, BC ==
[2022-09-12 08:29] LABS: CALCIUM 9.3 mg/dL (8.5-10.3); CREATININE 0.6 mg/dL (0.4-1.0); MAGNESIUM 1.9 mg/dL (1.7-2.8)
== END 2022-09-12 08:07 | disposition home or self-care (01) ==
LOC: LAB 08:06
PROVIDERS: ATTEND Internal Medicine Cardiovascular Disease
DX: I48.91 Unspecified atrial fibrillation (principal); Z51.81 Encounter for therapeutic drug level monitoring; Z79.899 Other long term (current) drug therapy
CPT/HCPCS: 36415; 80048; 83735

== ENCOUNTER 2022-11-07 07:46 | Outpatient (CLI) | payer MEDICARE, BC ==
[2022-11-07 13:05] LABS: EOSINOPHILS # (AUTO) 0.1 10^3/uL (0.0-0.7); HCT - HEMATOCRIT 43.6 % (37.0-47.0); HGB - HEMOGLOBIN 13.5 g/dL (12.0-16.0); LYMPHOCYTES # (AUTO) 0.8 10^3/uL (1.5-3.5); LYMPHOCYTES % (AUTO) 20.5 %; MEAN CORPUSCULAR HEMOGLOBIN 28.9 pg (27.0-31.0); MEAN CORPUSCULAR VOLUME 93.4 fL (81.0-99.0); MEAN PLATELET VOLUME 11.5 fL (7.9-10.8); MONOCYTES # (AUTO) 0.5 10^3/uL (0.0-1.0); MONOCYTES % (AUTO) 11.3 %; NEUTROPHILS # (AUTO) 2.6 10^3/uL (1.5-6.6); NEUTROPHILS % (AUTO) 63.9 %; PLT - PLATELET COUNT 199 10^3/uL (130-450); RED BLOOD COUNT 4.67 10^6/uL (4.20-5.40); RED CELL DISTRIBUTION WIDTH 13.7 % (12.0-15.0)
[2022-11-07 13:28] LABS: ALBUMIN 4.1 g/dL (3.2-5.5); ALBUMIN/GLOBULIN RATIO 1.1 (1.0-2.2); ALKALINE PHOSPHATASE 65 IU/L (42-121); ALT ALANINE AMINOTRANSFERASE 18 IU/L (10-60); AST ASPARTATE AMINOTRANSFERASE 23 IU/L (10-42); BUN - BLOOD UREA NITROGEN 16 mg/dL (6-20); CARBON DIOXIDE - CO2 31 mmol/L (21-32); CHLORIDE 104 mmol/L (101-111); CHOL/HDL RATIO 2.1 (<4.4); CHOLESTEROL 148 mg/dL; CREATININE 0.6 mg/dL (0.4-1.0); GFR - MDRD 96 (>89); GLUCOSE 109 mg/dL (70-100); HDL CHOLESTEROL 69 mg/dL; LDL CHOLESTEROL,CALCULATED 66 mg/dL; POTASSIUM 4.3 mmol/L (3.5-5.0); SODIUM 140 mmol/L (135-145); TOTAL PROTEIN 7.7 g/dL (6.7-8.2); TRIGLYCERIDES 65 mg/dL; VLDL CHOLESTEROL 13 mg/dL
[2022-11-07 13:37] LABS: THYROID STIMULATING HORMONE 0.74 uIU/mL (0.34-5.60)
== END 2022-11-07 07:47 | disposition home or self-care (01) ==
LOC: LAB.N 07:46
PROVIDERS: ATTEND Internal Medicine
DX: I10 Essential (primary) hypertension (principal); E78.5 Hyperlipidemia, unspecified; E03.9 Hypothyroidism, unspecified
CPT/HCPCS: 36415; 80053; 80061; 83721; 84443; 85025

== ENCOUNTER 2022-11-08 09:29 | Outpatient (CLI) | payer MEDICARE, BC ==
[2022-11-08 10:10] VITALS: BP 134/82
--- NOTE | 2022-11-08 10:10 | SLEEP CARE CONSULTATION ---
Information from patient questionnaire entered by Zari Sapp. I have reviewed and concur with the information entered by Zari Sapp. This document represents the service I personally performed and the decisions made by , Marisa Welch ARNP. History of Present Illness Service Date and Time: 11/08/2022 09 Previous diagnosis: Mild, Obstructive Sleep Apnea-Hypopnea Syndrome AHI: 12.6 (in 2020) Reason for follow up: first compliance (SET UP 08/17/2021) Equipment type: CPAP (RESMED Airsense 11 s/u 07/2022) Equipment obtained from: Other ([facility]) Mask style: Nasal (over the nose) Backup mask available: No Prior sleep studies: Yes Type of Sleep Study: Polysomnography HPI additional information: GERHARD CAMPBELL was diagnosed to have mild, AHI 12.6, obstructive sleep apnea- hypopnea syndrome and returned today for CPAP therapy first compliance follow- up. Sleep Study - Results Type of Sleep Study: Polysomnography Prior sleep studies: No CPAP Compliance Data - Data Reviewed with Patient Average duration of nightly device use: 4 hours 15 minutes Compliance rate %: 67 (30/30 days used) Current pressure setting (cmH2O): 4-15 (median 5.4, avg 6.7, max 7.4) Average residual AHI: 0.5 Central apnea: 0 Obstructive apnea: 0.3 Subjective Missed days of use due to: reports: mask issues Patient concerns: reports: mask discomfort, air blowing in eyes (goes away with adjustment), dry mouth, nose, throat (dry mouth sometimes). denies: aerophagia, mask leak noise, condensation in mask/hose, nasal congestion, epistaxis Observed to snore while using device: No Current pressure setting perceived as: comfortable On therapy, patient: reports: other (does not feel improvement of her sleep at this point). denies: sleeping better, more rested overall, drowsiness while driving Initial [place] Sleepiness Scale score: 9 (in 2019) Current [place] Sleepiness Scale score: 6 (11/08/22) Allergies and Home Medications Known drug allergies: Yes (ibuprofen) Drug allergies reviewed: Yes Home medication list reviewed: Yes (no changes) Allergy and home medication list: Allergies ibuprofen Adverse Reaction (Intermediate, Verified 11/07/22 08:55) upset stomach Review of Systems Review of systems same as previous: Yes (no changes) Physical Exam Vital signs obtained and entered by: ZARI Patton MA Blood Pressure: 134/82 (LEFT ARM) Cuff size: regular Heart Rate: 92 O2 Saturation: 96 Height: 5 ft 6 in Weight: 185 lb 9.6 oz Body Mass Index: 29.9 BMI Classification: Overweight Impression and Plan 1. Obstructive Sleep Apnea-Hypopnea Syndrome, mild, with fair treatment compliance and good apnea control. Patient is not comfortable using the CPAP. She dreads putting it on and will take the mask off as soon as she gets to 4 hours. She does not feel a difference in rest or quality of sleep. I advised that it can take time to get comfortable with CPAP use and that she would get the best benefit of CPAP therapy by using the CPAP machine for 6.5 or more hours. She voice understanding. She would still like to discontinue CPAP but will continue until she speaks with her Sew Out Operator in a few weeks. She may then decide to stop CPAP and go back to the oral appliance with some adjustments to make the oral device more comfortable. Currently it is so tight it causes jaw/teeth pain. The patients pressure will be changed to autoCPAP 5-7 cmH20 to reflect pressure being used. Patient advised to contact me if pressure change is uncomfortable so that it can be adjusted. Goals for apnea control discussed. Patient's apnea severity and rationale for treatment to reduce apnea, improve sleep quality and reduce cardiovascular and cerebrovascular events was reviewed. I also reviewed the benefit of consistent device use of CPAP for hypertension, cardiac disease, arrhythmia, gastric reflux and anxiety. 2. Overweight, unspecified. Currently patients BMI is 29.9. Obesity increases the risk of apnea, CPAP pressure requirements and overall health risks especially cardiovascular and diabetes. Thus patient is advised to lose weight. * Change auto CPAP pressure to 5-7 cmH2O * Notify me if snoring with mask or feeling that the pressure is too much or too little * Attempt to lose weight * Call this office if any problems using CPAP * Return for follow up in 1-2 months, or sooner if concerns arise Counseling Topics: Sleeping position, Spare mask, Weight loss health impact Visit Type: In Office Time Spent with Patient (minutes): 26 Provider Statement: I spent 100% of the Face to Face Visit with the patient with greater than 50% spent counseling the patient and coordination of care.
== END 2022-11-08 09:30 | disposition home or self-care (01) ==
LOC: SC 09:29
PROVIDERS: ATTEND Nurse Practitioner Family
DX: G47.33 Obstructive sleep apnea (adult) (pediatric) (principal); E66.3 Overweight; Z68.29 Body mass index [BMI] 29.0-29.9, adult
CPT/HCPCS: 99213; G0463; 99212

== ENCOUNTER 2022-12-08 13:02 | Outpatient (CLI) | payer MEDICARE, BC ==
--- NOTE | 2022-12-08 13:44 | SLEEP CARE CONSULTATION ---
Information from patient questionnaire entered by Baylee Sapp. I have reviewed and concur with the information entered by Baylee Sapp. This document represents the service I personally performed and the decisions made by , Marisa Welch ARNP. History of Present Illness Service Date and Time: 12/08/2022 1302 Previous diagnosis: Mild, Obstructive Sleep Apnea-Hypopnea Syndrome AHI: 12.6 (in 2020) Reason for follow up: one month (F/U) Equipment type: CPAP (Airsense 11, s/u 07/2022) Equipment obtained from: Other ([facility]) Mask style: Nasal Backup mask available: Yes (other mask) Last cushion change: 2 months Prior sleep studies: No Year and Where: 2021 Type of Sleep Study: Polysomnography HPI additional information: GERHARD CAMPBELL was diagnosed to have mild, AHI 12.6, obstructive sleep apnea- hypopnea syndrome and returned today for CPAP therapy one month follow-up. Sleep Study - Results Type of Sleep Study: Polysomnography Prior sleep studies: No CPAP Compliance Data - Data Reviewed with Patient Average duration of nightly device use: 4 hours 14 minutes Compliance rate %: 67 (30/30 days used) Current pressure setting (cmH2O): 5-7 Average residual AHI: 0.3 Average large leak: 0 lpm Subjective Patient concerns: reports: mask discomfort, nasal congestion, other (does not like wearing the mask). denies: aerophagia, air blowing in eyes, mask leak noise, condensation in mask/hose, dry mouth, nose, throat, epistaxis Observed to snore while using device: No Current pressure setting perceived as: comfortable On therapy, patient: reports: other (does not feel any difference). denies: sleeping better, drowsiness while driving Initial Shirley Sleepiness Scale score: 9 (in 2019) Current Shirley Sleepiness Scale score: 6 (12/08/22) Allergies and Home Medications Known drug allergies: Yes (ibuprofen) Drug allergies reviewed: Yes Home medication list reviewed: Yes (no changes) Allergy and home medication list: Allergies ibuprofen Adverse Reaction (Intermediate, Verified 12/07/22 13:35) upset stomach Review of Systems Review of systems same as previous: Yes (no changes) Physical Exam Vital signs obtained and entered by: BAYLEE Patton MA Blood Pressure: 126/80 (LEFT ARM) Cuff size: regular Heart Rate: 73 O2 Saturation: 96 Height: 5 ft 6 in Weight: 186 lb 3.2 oz Body Mass Index: 30.0 BMI Classification: Obese Impression and Plan 1. Obstructive Sleep Apnea-Hypopnea Syndrome, mild, with fair treatment compliance and good apnea control. Gerhard Glover still struggles with using the CPAP. She was encouraged to continue using it by her field manager. She still does wear it nightly but "hates wearing" the mask. She would like to change back to the oral appliance with positional therapy. But, I reminded her that she complained of pain when wearing it. I advised that she follow up with dentist who made the oral appliance to have it adjusted. She is going on a vacation in the end of December/early January and would like to try using the fixed oral appliance during her vacation and then come in to see if she can tolerate a change back to the oral appliance. I advised her to continue the CPAP on nights she is not using the oral appliance and we will revisit this at her next appointment in 1-2 months. She voiced understanding and agreement. Patient's apnea severity and rationale for treatment to reduce apnea, improve sleep quality and reduce cardiovascular and cerebrovascular events was reviewed. I also reviewed the benefit of consistent device use of CPAP for hypertension, cardiac disease, arrhythmia, gastric reflux and anxiety. 2. Obesity, unspecified. Currently patients BMI is 30. Obesity increases the risk of apnea, CPAP pressure requirements and overall health risks especially cardiovascular and diabetes. Thus patient is advised to lose weight. * Continue auto CPAP pressure at 5-7 cmH2O * Have oral appliance adjusted for comfort * Use oral appliance with positional therapy when on vacation * Notify me if snoring with mask or feeling that the pressure is too much or too little * Attempt to lose weight * Call this office if any problems using CPAP * Return for follow up in 1-2 months, or sooner if concerns arise Counseling Topics: Spare mask, Weight loss health impact Visit Type: In Office Time Spent with Patient (minutes): 21 Provider Statement: I spent 100% of the Face to Face Visit with the patient with greater than 50% spent counseling the patient and coordination of care.
[2022-12-08 13:45] VITALS: BP 126/80
== END 2022-12-08 13:03 | disposition home or self-care (01) ==
LOC: SC 13:02
PROVIDERS: ATTEND Nurse Practitioner Family
DX: G47.33 Obstructive sleep apnea (adult) (pediatric) (principal); E66.9 Obesity, unspecified; Z68.30 Body mass index [BMI] 30.0-30.9, adult
CPT/HCPCS: 99213; G0463; 99212

== ENCOUNTER 2023-01-18 13:00 | Outpatient (CLI) | payer MEDICARE, BC | END 2023-01-18 13:15 | disposition home or self-care (01) | LOC: LAB.N 13:00 | PROVIDERS: ATTEND Registered Nurse | DX: R30.0 Dysuria (principal) | CPT/HCPCS: 87077; 87086; 87181 ==

== ENCOUNTER 2023-02-14 15:29 | Emergency (ER) | payer MEDICARE, BC ==
[2023-02-14 15:41] VITALS: BP 169/83
--- NOTE | 2023-02-14 15:43 | ED Physician Documentation ---
PD HPI FEMALE - Stated complaint Stated Complaint: FEMALE - Chief complaint Chief Complaint: UTI - History obtained from History obtained from: Patient - History of Present Illness Timing - onset: How many days ago (2) Timing - duration: Days (2) Timing - details: Gradual onset, Still present Associated symptoms: No: Fever Similar symptoms before: Diagnosis (UTIs in the past.) Recently seen: Clinic (she had symptoms and states was seen in Walk In clinic about 2 weeks ago and Rx Keflex for UTI (UA done in clinic; pt did not know if culture done). Was doing reasonably better but not fully. Abx done few days ago and pain sumptoms much increased.) Review of Systems Constitutional: reports: Fatigue. denies: Myalgias Cardiac: denies: Chest pain / pressure, Palpitations Respiratory: denies: Dyspnea, Cough PD PAST MEDICAL HISTORY - Past Medical History Cardiovascular: Hypertension, High cholesterol, [place], Atrial fibrillation Respiratory: None Neuro: None Endocrine/Autoimmune: HyPOthyroidism GI: GERD CERTIFIED MEDICAL TECHNICIAN: None : None, Other HEENT: None Psych: None Musculoskeletal: None Derm: Eczema - Past Surgical History Past Surgical History: Yes Ortho: Arthroscopic surgery /CERTIFIED MEDICAL TECHNICIAN: Hysterectomy - Present Medications Home Medications: Ambulatory Orders Medication Instructions Recorded Confirmed Levothyroxine Sodium [Levothroid] 75 mcg PO DAILY 07/07/13 12/08/22 Pravastatin Sodium 40 mg PO QPM 10/20/13 12/08/22 Sotalol [Betapace] 40 mg PO BID 08/05/21 12/08/22 lisinopriL [Lisinopril] 20 mg PO QPM 08/05/21 12/08/22 Apixaban [Eliquis] 5 mg PO BID 06/13/22 12/08/22 Ciprofloxacin HCl [Cipro] 500 mg PO BID #14 tablet 02/14/23 Phenazopyridine HCl [Pyridium] 100 mg PO TID PRN #15 tablet 02/14/23 - Allergies Allergies/Adverse Reactions: Allergies Allergy/AdvReac Type Severity Reaction Status Date / Time ibuprofen AdvReac Intermediate upset Verified 02/14/23 15:36 stomach - Social History Does the pt smoke?: No Smoking Status: Never smoker Does the pt drink ETOH?: No Does the pt have substance abuse?: No - Immunizations Immunizations are current?: Yes - POLST Patient has POLST: No PD ED PE NORMAL - Vitals Vital signs reviewed: Yes - General General: Alert and oriented X 3, Well developed/nourished - Abdomen Abdomen: Soft, Non tender - Female Female : Deferred - Rectal Rectal: Deferred - Back Back: No CVA TTP - Derm Derm: Normal color, Warm and dry Results - Vitals Vitals: Vital Signs - 24 hr 02/14/23 15:37 Temperature 36.6 C Heart Rate 71 Respiratory 16 Rate Blood Pressure 169/83 H O2 Saturation 96 Oxygen O2 Source Room air - Labs Labs: Laboratory Tests 02/14/23 15:56 Urine Color YELLOW Urine Clarity SL. CLOUDY Urine pH 7.5 Ur Specific [place] 1.015 Urine Protein TRACE Urine Glucose (UA) NEGATIVE Urine Ketones NEGATIVE Urine Occult Blood MODERATE H Urine Nitrite NEGATIVE Urine Bilirubin NEGATIVE Urine Urobilinogen 0.2 (NORMAL) Ur Leukocyte Esterase SMALL H Urine RBC TNTC H Urine WBC >25 H Urine WBC Clumps PRESENT Ur Squamous Epith Cells FEW Squamous Urine Bacteria Few Ur Microscopic Review INDICATED Urine Culture Comments INDICATED PD Medical Decision Making - ED course Complexity details: reviewed old records (prior urine culture is from early January and not seeing one for this most recent UTI, so will choose a different abx for now, with further guidance to result from culture. ), considered differential (symptoms and UA c/w cystitis. Not having flank pain. ), d/w patient Departure - Departure Disposition: Home, Self Care Clinical Impression: Dysuria UTI (urinary tract infection) Qualifiers: Urinary tract infection type: acute cystitis Hematuria presence: with hematuria Qualified Code(s): N30.01 - Acute cystitis with hematuria Condition: Stable Record reviewed to determine appropriate education?: Yes Instructions: ED UTI Cystitis Female Prescriptions: Ciprofloxacin HCl [Cipro] 500 mg PO BID #14 tablet Phenazopyridine HCl [Pyridium] 100 mg PO TID PRN #15 tablet PRN Reason: Abdominal Pain Comments: Your urine test does look consistent with a bladder infection. I did not see a culture from the most recent lab test done from the walk-in clinic so no guidance on antibiotic choice from that. We will go with a different antibiotic at this point rather than the cephalexin since that did not clear it. I wrote a prescription for Cipro floxacillin twice daily for a week and the phenazopyridine to help with discomfort. You can add Tylenol every 4-6 hours if needed for discomfort as well. Stay well-hydrated. Continue your other usual medicines. I sent the prescription to [facility] pharmacy in [place]. We will do a culture of the urine and that will result in 2 or 3 days. We will call you if we need to change the antibiotic choice based on that. I would anticipate improvement over the next few days. Return if worsening. Discharge Date/Time: 02/14/23 16:39
[2023-02-14] MEDS ORDERED: CIPROFLOXACIN 250 MG TABLET PO STA (16:01)
[2023-02-14] MEDS ORDERED: PHENAZOPYRIDINE 100 MG TABLET PO STA (16:01)
[2023-02-14 16:13] LABS: BILIRUBIN,URINE NEGATIVE (NEGATIVE); CLARITY,URINE SL. CLOUDY (CLEAR); GLUCOSE, URINE (UA) NEGATIVE (NEGATIVE); KETONES,URINE (UA) NEGATIVE (NEGATIVE); LEUKOCYTE ESTERASE, URINE SMALL (NEGATIVE); NITRITE,URINE NEGATIVE (NEGATIVE); OCCULT BLOOD,URINE MODERATE (NEGATIVE); PH,URINE 7.5 PH (5.0-7.5); PROTEIN,URINE TRACE mg/dL (NEGATIVE); UROBILINOGEN,URINE 0.2 (NORMAL) E.U./dL (NORMAL)
[2023-02-14 16:28] LABS: BACTERIA,URINE Few /HPF (None Seen); RBC,URINE TNTC /HPF (0-5); SQUAMOUS EPITHELIAL CELL,UR FEW Squamous (<= Few); WBC CLUMPS,URINE PRESENT; WBC,URINE >25 /HPF (0-5)
== END 2023-02-14 16:39 | disposition home or self-care (01) ==
LOC: ED 15:29
DX: N30.01 Acute cystitis with hematuria (principal); Z87.440 Personal history of urinary (tract) infections; I10 Essential (primary) hypertension; E78.00 Pure hypercholesterolemia, unspecified; E03.9 Hypothyroidism, unspecified; I48.91 Unspecified atrial fibrillation; I25.2 Old myocardial infarction; Z79.01 Long term (current) use of anticoagulants; Z79.899 Other long term (current) drug therapy
CPT/HCPCS: 81001; 87086; 99283; A9270; 81003

== ENCOUNTER 2023-05-31 07:26 | Outpatient (CLI) | payer MEDICARE, BC ==
[2023-05-31 08:18] LABS: ALBUMIN 4.1 g/dL (3.2-5.5); ALBUMIN/GLOBULIN RATIO 1.5 (1.0-2.2); ALKALINE PHOSPHATASE 60 IU/L (42-121); ALT ALANINE AMINOTRANSFERASE 9 IU/L (10-60); AST ASPARTATE AMINOTRANSFERASE 13 IU/L (10-42); BILIRUBIN,TOTAL 0.8 mg/dL (0.2-1.0); BUN - BLOOD UREA NITROGEN 17 mg/dL (6-20); CALCIUM 9.3 mg/dL (8.5-10.3); CARBON DIOXIDE - CO2 33 mmol/L (21-32); CHLORIDE 104 mmol/L (101-111); CHOL/HDL RATIO 1.9 (<4.4); CHOLESTEROL 126 mg/dL; CREATININE 0.6 mg/dL (0.6-1.3); GFR - MDRD 96 (>89); GLUCOSE 100 mg/dL (74-104); HDL CHOLESTEROL 67 mg/dL; LDL CHOLESTEROL,CALCULATED 48 mg/dL; LDL/HDL RATIO 0.7 (<4.4); POTASSIUM 4.1 mmol/L (3.5-4.5); SODIUM 140 mmol/L (135-145); TOTAL PROTEIN 6.8 g/dL (6.4-8.9); TRIGLYCERIDES 53 mg/dL (48-352); VLDL CHOLESTEROL 11 mg/dL
== END 2023-05-31 07:27 | disposition home or self-care (01) ==
LOC: LAB 07:26
PROVIDERS: ATTEND Internal Medicine
DX: E78.5 Hyperlipidemia, unspecified (principal)
CPT/HCPCS: 36415; 80053; 80061; 83721

== ENCOUNTER 2023-06-02 07:27 | Outpatient (CLI) | payer MEDICARE, BC ==
[2023-06-02 08:08] LABS: THYROID STIMULATING HORMONE 1.14 uIU/mL (0.34-5.60)
== END 2023-06-02 07:28 | disposition home or self-care (01) ==
LOC: LAB 07:27
PROVIDERS: ATTEND Internal Medicine
DX: E03.9 Hypothyroidism, unspecified (principal)
CPT/HCPCS: 36415; 84439; 84443; 84481

== ENCOUNTER 2023-07-28 07:26 | Outpatient (CLI) | payer MEDICARE, BC ==
[2023-07-28 12:46] LABS: THYROID STIMULATING HORMONE 0.91 uIU/mL (0.34-5.60)
== END 2023-07-28 07:27 | disposition home or self-care (01) ==
LOC: LAB.N 07:26
PROVIDERS: ATTEND Internal Medicine
DX: E03.9 Hypothyroidism, unspecified (principal)
CPT/HCPCS: 36415; 84439; 84443; 84481

== ENCOUNTER 2023-08-08 09:23 | Emergency (ER) | payer MEDICARE, BC ==
[2023-08-08] MEDS ORDERED: DEXAMETHASONE 10 MG/ML VIAL PO STA (09:49)
[2023-08-08] MEDS ORDERED: CHERRY SYRUP 10 ML UDC PO ONE (09:49)
[2023-08-08 10:08] LABS: RAPID STREP SCREEN POSITIVE (Negative)
[2023-08-08] MEDS ORDERED: AMOX/CLAV 875 MG/125 MG TABLET PO STA (10:27)
[2023-08-08 10:44] LABS: B. PARAPERTUSSIS- RESP PCR PAN NOT DETECTED; B. PERTUSSIS- RESP PCR PANEL NOT DETECTED; C. PNEUMONIAE- RESP PCR PANEL NOT DETECTED; CORONAVIRUS 229E-RESP PCR NOT DETECTED; CORONAVIRUS HKU1-RESP PCR NOT DETECTED; CORONAVIRUS NL63-RESP PCR NOT DETECTED; CORONAVIRUS OC43-RESP PCR NOT DETECTED; HUMAN METAPNEUMOVIRUS NOT DETECTED; INFLUENZA A- RESP PCR PANEL NOT DETECTED; INFLUENZA B - RESP PCR PANEL NOT DETECTED; M. PNEUMONIAE- RESP PCR PANEL NOT DETECTED; PARAINFLUENZA VIRUS 1 NOT DETECTED; PARAINFLUENZA VIRUS 2 NOT DETECTED; PARAINFLUENZA VIRUS 3 NOT DETECTED; PARAINFLUENZA VIRUS 4 NOT DETECTED; RHINOVIRUS/ENTEROVIRUS NOT DETECTED; RSV- RESP PCR PANEL NOT DETECTED
[2023-08-08 10:48] LABS: SARS-CoV-2 -RESP PCR PANEL DETECTED
[2023-08-08] MEDS ORDERED: MOLNUPIRAVIR PREPACK PO STA (11:12)
--- NOTE | 2023-08-08 11:22 | ED Physician Documentation ---
History of Present Illness - Stated complaint Stated Complaint: SORE THROAT - Chief complaint Chief Complaint: Heent - Additonal information Additional information: Patient 78-year-old female presenting to the emergency department with chief complaint sore throat. Reports 4 days of illness with worsening sore throat and difficulty swallowing. States has had bodyaches, cough and congestion. Denies chest pain, shortness of breath, abdominal pain. Review of Systems Constitutional: reports: Myalgias Eyes: denies: Loss of vision Ears: denies: Loss of hearing Nose: reports: Rhinorrhea / runny nose, Congestion Throat: reports: Sore throat Respiratory: reports: Cough. denies: Dyspnea GI: denies: Abdominal Pain, Nausea, Vomiting, Constipation PD PAST MEDICAL HISTORY - Past Medical History Past Medical History: Yes Cardiovascular: Hypertension, High cholesterol, [place], Atrial fibrillation Respiratory: None Neuro: None Endocrine/Autoimmune: HyPOthyroidism GI: GERD DIGITAL MEDIA MANAGER: None : None, Other HEENT: None Psych: None Musculoskeletal: None Derm: Eczema - Past Surgical History Past Surgical History: Yes Ortho: Hip replacement, Arthroscopic surgery /DIGITAL MEDIA MANAGER: Hysterectomy - Present Medications Home Medications: Ambulatory Orders Medication Instructions Recorded Confirmed Levothyroxine Sodium [Levothroid] 75 mcg PO DAILY 07/07/13 08/08/23 Pravastatin Sodium 40 mg PO QPM 10/20/13 08/08/23 lisinopriL [Lisinopril] 30 mg PO QPM 08/05/21 08/08/23 Apixaban [Eliquis] 5 mg PO BID 06/13/22 08/08/23 Amox/Clav 875/125 [Augmentin] 1 tab PO Q12H #20 tablet 08/08/23 Valsartan 160 mg PO DAILY 08/08/23 08/08/23 - Allergies Allergies/Adverse Reactions: Allergies Allergy/AdvReac Type Severity Reaction Status Date / Time ibuprofen AdvReac Intermediate upset Verified 08/08/23 09:30 stomach - Social History Does the pt smoke?: No Smoking Status: Never smoker Does the pt drink ETOH?: Yes ETOH Use: Wine Does the pt have substance abuse?: No - Immunizations Immunizations are current?: Yes - POLST Patient has POLST: No PD ED PE NORMAL - Vitals Vital signs reviewed: Yes - General General: Alert and oriented X 3, No acute distress - HEENT HEENT: Atraumatic, Other (Erythematous posterior oropharynx) - Neck Neck: Supple, no meningeal sign - Cardiac Cardiac: RRR, No gallop - Respiratory Respiratory: No respiratory distress - Abdomen Abdomen: Normal bowel sounds - Female Female : Deferred - Rectal Rectal: Deferred - Back Back: No CVA TTP - Derm Derm: Normal color - Extremities Extremities: No deformity - Neuro Neuro: Alert and oriented X 3, waste examiner 2-12 intact, No motor deficit, Normal speech Results - Vitals Vitals: Vital Signs - 24 hr 08/08/23 09:31 Temperature 37.4 C Heart Rate 88 Respiratory 18 Rate Blood Pressure 164/104 H O2 Saturation 94 Oxygen O2 Source Room air - Labs Labs: Laboratory Tests 08/08/23 08/08/23 09:40 09:40 Nasal Adenovirus (PCR) NOT DETECTED Nasal B. parapertussis DNA (PCR) NOT DETECTED Nasal Coronavir 229E PCR NOT DETECTED Nasal Coronavir HKU1 PCR NOT DETECTED Nasal Coronavir NL63 PCR NOT DETECTED Nasal Coronavir OC43 PCR NOT DETECTED Nasal Enterovir/Rhinovir PCR NOT DETECTED Nasal Influenza B PCR NOT DETECTED Nasal Influenza A PCR NOT DETECTED Nasal Parainfluen 1 PCR NOT DETECTED Nasal Parainfluen 2 PCR NOT DETECTED Nasal Parainfluen 3 PCR NOT DETECTED Nasal Parainfluen 4 PCR NOT DETECTED Nasal RSV (PCR) NOT DETECTED Nasal B.pertussis DNA PCR NOT DETECTED Nasal C.pneumoniae (PCR) NOT DETECTED Gary Human Metapneumo PCR NOT DETECTED Nasal M.pneumoniae (PCR) NOT DETECTED Nasal SARS-CoV-2 (PCR) DETECTED A Group A Strep Rapid POSITIVE H PD Medical Decision Making - ED course Complexity details: reviewed results, d/w patient ED course: Patient 78-year-old female presenting to the emergency department with cough, congestion, body ache, sore throat. Some erythematous in the posterior oropharynx but no indications of deep space neck infection. Clear aeration in all lung angulo. Nothing that suggests acute hypoxic respiratory failure. Strep swab positive. Culture pending. Will initiate course of Augmentin. SARS COVID-positive. Long and detailed discussion had with the patient about the use of the novel antiviral medications. This included the review of the best evidence for their efficacy as well as risk as well as the potential for unknown risks given that they are still considered experimental medications. At this time she is interested in trying these medications. I did discuss her care directly with the pharmacist and reconciled her medications for course of Molnupiravir. 5 day course supplied. [email or web address] Departure - Departure Disposition: 01 Home, Self Care Clinical Impression: COVID-19, Strep throat Instructions: ED Viral Syndrome Ch, ED Strep Pharyngitis Conf Prescriptions: Amox/Clav 875/125 [Augmentin] 1 tab PO Q12H #20 tablet Comments: Thank you for allowing us to care for you today [facility]. Today in the emergency department you tested positive for the SARS COVID virus as well as strep pharyngitis. I have sent a prescription for an oral antibiotic to treat the strep pharyngitis to your preferred pharmacy, You received a 5-day course of MlnupiravirIn the emergency department today. Please take these as directed. Please quarantine per current CDC guidelines. Please follow-up with your primary care doctor soon as possible concerning your ED visit. If anytime you develop any new or worsening symptoms please not hesitate to return.
[2023-08-08 11:39] VITALS: BP 169/95; O2SAT 96
== END 2023-08-08 11:39 | disposition home or self-care (01) ==
LOC: ED 09:23
DX: U07.1 COVID-19 (principal); J02.0 Streptococcal pharyngitis; M79.10 Myalgia, unspecified site; R05.9 Cough, unspecified; R09.81 Nasal congestion; J34.89 Other specified disorders of nose and nasal sinuses
CPT/HCPCS: 87430; 87633; 99283; 99284; A9270; J3490

== ENCOUNTER 2023-09-05 08:51 | Outpatient (CLI) | payer MEDICARE, BC ==
[2023-09-05 13:04] LABS: CALCIUM 9.6 mg/dL (8.5-10.3); CREATININE 0.7 mg/dL (0.6-1.3); POTASSIUM 4.3 mmol/L (3.5-4.5)
== END 2023-09-05 08:52 | disposition home or self-care (01) ==
LOC: LAB.N 08:51
PROVIDERS: ATTEND Nurse Practitioner
DX: Z51.81 Encounter for therapeutic drug level monitoring (principal); Z79.899 Other long term (current) drug therapy
CPT/HCPCS: 36415; 80048

== ENCOUNTER 2023-09-19 13:23 | Outpatient (CLI) | payer MEDICARE, BC ==
--- NOTE | 2023-09-20 11:32 | Mammography Report ---
BILATERAL DIGITAL SCREENING MAMMOGRAM 3D/2D: 09/19/2023 CLINICAL: Routine screening. Comparison is made to exams dated: 03/15/2022 mammogram, 03/23/2021 mammogram, and 02/28/2020 mammogram - [facility]. There are scattered areas of fibroglandular density in both breasts (category b / 25%-50% glandular t issue). There are benign calcifications in both breasts. No significant masses, calcifications, or other findings are seen in either breast. There has been no significant interval change. IMPRESSION: BENIGN There is no mammographic evidence of malignancy. A 1 year screening mammogram is recommended. Based on the Tyrer Cuzick model (a risk assessment model) the patient's lifetime risk is 1.5% and her 10 year risk is 0.0%. According to the ACR, ACS, and NCCN guidelines, an annual breast MRI exam nish g with mammogram is recommended if the patient's lifetime risk is 20% or greater. This exam was interpreted at Station ID: [id number]. NOTE: For mammograms, a report in lay terms will be sent to the patient. Approximately 15% of breast malignancies will not be visualized mammographically. In the management of a palpable breast mass, a negative mammogram must not discourage biopsy of a clinically suspicious lesion. Electronically Signed By: Rico marques/elsa:09/19/2023 14:49:50 letter sent: No_Letter ACR BI-RADS Category 2: Benign Finding(s) 3342F PARENCHYMAL PATTERN: (A) - The breast(s) demonstrate(s) scattered fibroglandular densities. BI-RADS CATEGORY: (2) - 2 Mammogram [id number] 1 year screening LATERALITY: (B)
== END 2023-09-19 13:24 | disposition home or self-care (01) ==
LOC: DI 13:23
PROVIDERS: ATTEND Internal Medicine
DX: Z12.31 Encounter for screening mammogram for malignant neoplasm of breast (principal); R92.323 Mammographic fibroglandular density, bilateral breasts

== ENCOUNTER 2023-10-18 08:02 | Outpatient (CLI) | payer MEDICARE, BC ==
--- NOTE | 2023-10-18 09:02 | DEXA Report ---
PROCEDURE: Dexa Spine and/or Hip INDICATIONS: POST MENOPAUSAL TECHNIQUE: Dual energy x-ray absorptiometry (DXA) was performed on a 9+ System. Regions measur ed are the AP Spine, femoral neck, and if needed forearm. COMPARISON: 09/16/2020 FINDINGS: Lumbar Spine: Bone Mineral Density: 1.109 g/cm/cm,T score: -0.5. Since the most recent prior study, there has been a statistically significant increase in bone mineral density by 7.9 percent. Left Femoral Neck: Bone Mineral Density: 0.751 g/cm/cm, T score: -2.1. Left Hip: Bone Mineral Density: 0.773 g/cm/cm,T score: -1.9. There has been no statistically significant change in bone mineral density since the prior study. (T score greater or equal to -1.0: NORMAL) (T score from -1.1 to -2.4: OSTEOPENIA) (T score less than or equal to -2.5 to: OSTEOPOROSIS) Impression: By WHO criteria, this patient has low bone density (osteopenia). Interval statistical increase in bone mineral density of the lumbar spine. No statistical interval ch mic in bone mineral density of the hip. Patients with diagnosis of osteoporosis or osteopenia should have regular bone mineral density assess ment. For those eligible for Medicare, routine testing is allowed once every 2 years. Testing frequ ency can be increased for patients who have rapidly progressing disease or for those who are receivin g medical therapy to restore bone mass. Reviewed by: Iraj Esqueda MD on 10/18/2023 9:01 AM PST Approved by: Iraj Esqueda MD on 10/18/2023 9:01 AM PST Station ID: [id number]
== END 2023-10-18 08:03 | disposition home or self-care (01) ==
LOC: DI 08:02
PROVIDERS: ATTEND Internal Medicine
DX: M85.89 Other specified disorders of bone density and structure, multiple sites (principal); Z78.0 Asymptomatic menopausal state

== ENCOUNTER 2024-04-29 09:21 | Outpatient (CLI) | payer MEDICARE, BC ==
[2024-04-29 09:34] LABS: BASOPHILS % (AUTO) 0.9 %; EOSINOPHILS # (AUTO) 0.1 10^3/uL (0.0-0.7); EOSINOPHILS % (AUTO) 2.2 %; HCT - HEMATOCRIT 43.5 % (37.0-47.0); HGB - HEMOGLOBIN 13.3 g/dL (12.0-16.0); LYMPHOCYTES # (AUTO) 0.9 10^3/uL (1.5-3.5); LYMPHOCYTES % (AUTO) 19.2 %; MEAN CORPUSCULAR HEMOGLOBIN 28.2 pg (27.0-31.0); MEAN CORPUSCULAR HGB CONC 30.6 g/dL (32.0-36.0); MEAN CORPUSCULAR VOLUME 92.4 fL (81.0-99.0); MEAN PLATELET VOLUME 10.2 fL (7.9-10.8); MONOCYTES # (AUTO) 0.5 10^3/uL (0.0-1.0); MONOCYTES % (AUTO) 10.4 %; NEUTROPHILS # (AUTO) 3.1 10^3/uL (1.5-6.6); NEUTROPHILS % (AUTO) 67.1 %; PLT - PLATELET COUNT 181 10^3/uL (130-450); RED BLOOD COUNT 4.71 10^6/uL (4.20-5.40); RED CELL DISTRIBUTION WIDTH 15.1 % (12.0-15.0); WHITE BLOOD COUNT 4.6 x10^3/uL (4.8-10.8)
[2024-04-29 09:51] LABS: ALBUMIN/GLOBULIN RATIO 1.3 (1.0-2.2); ALKALINE PHOSPHATASE 61 IU/L (42-121); ALT ALANINE AMINOTRANSFERASE 10 IU/L (10-60); AST ASPARTATE AMINOTRANSFERASE 13 IU/L (10-42); BILIRUBIN,TOTAL 0.9 mg/dL (0.2-1.0); BUN - BLOOD UREA NITROGEN 15 mg/dL (6-20); CALCIUM 9.3 mg/dL (8.5-10.3); CARBON DIOXIDE - CO2 32 mmol/L (21-32); CHLORIDE 102 mmol/L (101-111); CHOLESTEROL 139 mg/dL; CREATININE 0.7 mg/dL (0.6-1.3); GFR - MDRD 81 (>89); GLUCOSE 104 mg/dL (74-104); HDL CHOLESTEROL 70 mg/dL; LDL CHOLESTEROL,CALCULATED 55 mg/dL; LDL/HDL RATIO 0.8 (<4.4); POTASSIUM 4.1 mmol/L (3.5-4.5); SODIUM 138 mmol/L (135-145); TRIGLYCERIDES 69 mg/dL; VLDL CHOLESTEROL 14 mg/dL
[2024-04-29 10:04] LABS: THYROID STIMULATING HORMONE 0.86 uIU/mL (0.34-5.60)
== END 2024-04-29 09:22 | disposition home or self-care (01) ==
LOC: LAB 09:21
PROVIDERS: ATTEND Internal Medicine
DX: I10 Essential (primary) hypertension (principal); E78.5 Hyperlipidemia, unspecified; R41.3 Other amnesia; E03.9 Hypothyroidism, unspecified
CPT/HCPCS: 36415; 80053; 80061; 82607; 83721; 84443; 85025

== ENCOUNTER 2024-05-03 08:44 | Outpatient (CLI) | payer MEDICARE, BC ==
--- NOTE | 2024-05-03 11:59 | MRI Report ---
PROCEDURE: Brain WO INDICATIONS: MEMORY IMPAIRMENT TECHNIQUE: Noncontrast axial T1 spin echo, axial T2 fast spin echo, sagittal and axial FLAIR, coronal T2 fast sp in echo, axial gradient echo, axial diffusion and ADC through the brain. COMPARISON: None. FINDINGS: Image quality: Excellent. CSF spaces: Basal cisterns are patent. No extra-axial fluid collections. Ventricles are symmetric in size and shape. Brain: No midline shift. No intracranial masses or hemorrhage. Mild scattered foci of T2/FLAIR hype rintense signal in the subcortical and periventricular white matter, slightly more prominent in the b ilateral parietal periventricular regions. Mild generalized cerebral and cerebellar parenchymal volum e loss. Intracranial vascular calcifications are noted in the internal carotid arteries. Skull and face: Calvarium and visualized facial bones are intact, without suspicious lesions. Thinn ing of the intraocular lenses likely related to prior cataract surgery. Sinuses: Visualized sinuses and mastoids are clear. IMPRESSION: 1.No acute intracranial hemorrhage or recent infarct. 2.Mild chronic microvascular ischemic changes. 3.Mild generalized parenchymal volume loss without asymmetric atrophy. Reviewed by: Rico Weiss MD on 05/03/2024 11:58 AM PDT Approved by: Rico Weiss MD on 05/03/2024 11:58 AM PDT Station ID: [id number]
== END 2024-05-03 08:45 | disposition home or self-care (01) ==
LOC: DI 08:44
PROVIDERS: ATTEND Internal Medicine
DX: R41.3 Other amnesia (principal); I67.82 Cerebral ischemia

== ENCOUNTER 2025-06-19 08:53 | Observation (INO) ==
[2025-06-19 09:35] LABS: HCT - HEMATOCRIT 39.0 % (37.0-47.0); HGB - HEMOGLOBIN 11.5 g/dL (12.0-16.0); MEAN PLATELET VOLUME 10.6 fL (7.9-10.8); NRBC ABSOLUTE COUNT (AUTO) 0.00 x10^3/uL; NUCLEATED RED BLOOD CELLS AUTO 0.0 /100WBC; PLT - PLATELET COUNT 167 10^3/uL (130-450); RED CELL DISTRIBUTION WIDTH 15.4 % (12.0-15.0)
--- OUTSIDE RECORDS SUMMARY | 2025-06-19 09:40 | EXTERNAL MEDICAL SUMMARY RPT | Continuity of Care Document ---
Author Organization [place] Address [address] [place] [id number] Phone Problems date description facility 2025-03-21 10:16 Paroxysmal atrial fibrillation [facility] 2025-03-21 10:16 Other specified diso rders of bone density and structure, unspecified site [facility] 2025-03-21 10:16 Disorientation, unspecified i [facility] 2025-03-21 10:16 Encounter for genera l adult medical examination without abnormal findings [facility] 2025-03-28 09:51 [facility]:51 Other specified diso rders of bone density and structure, unspecified site [facility] 2025-03-28 09:51 Disorientation, unspecified i [facility] 2025-03-28 09:51 Encounter for genera l adult medical examination without abnormal findings [facility] 2025-03-29 00:03 Paroxysmal atrial fibrillation [facility] 2025-03-29 00:03 Other specified diso rders of bone density and structure, unspecified site [facility] 2025-03-29 00:03 Disorientation, unspecified i [facility] 2025-03-29 00:03 Encounter for genera l adult medical examination without abnormal findings [facility] 2025-04-02 13:53 Encounter for genera l adult medical examination without abnormal findings [facility] Results/Labs test date facility value unit notes Result panel 1 NUCLEATED RED BLOOD CELLS AUTO 2025-03-28 09:58 [facility] 0.0 /100wbc (missing) BASOPHILS # (AUTO) 2025-03-28 09:58 [facility] ([facility] 0.0 10 3/ul (missing) NRBC ABSOLUTE COUNT (AUTO) 2025-03-28 09:58 [facility] 0.00 x10 3/ul (missing) EOSINOPHILS # (AUTO) 2025-03-28 09:58 [facility] 0.1 10 3/ul (missing) MONOCYTES # (AUTO) 2025-03-28 09:58 [facility] 0.6 10 3/ul (missing) CREATININE 2025-03-28 09:58 [facility] 0.6 mg/dl As of February 2023 testing method has changed, this may include reference ranges. LYMPHOCYTES # (AUTO) 2025-03-28 09:58 [facility] (ABAM)[facility] 0.7 10 3/ul (missing) BILIRUBIN,TOTAL 2025-03-28 09:58 [facility] ([facility] 1.0 mg/dl As of February 2023 testing method has changed, this may include reference ranges. ALBUMIN/GLOBULIN RATIO 2025-03-28 09:58 [facility] ([facility] 1.4 (missing) (missing) LDL/HDL RATIO 2025-03-28 09:58 [facility] ([facility]AM[facility] 1.4 (missing) (missing) MEAN PLATELET VOLUME 2025-03-28 09:58 [facility] (ABAM[facility] 10.9 fl (missing) GLUCOSE 2025-03-28 09:58 [facility] 100 mg/dl As of February 2023 testing method has changed, this may include reference ranges. FOLATE 2025-03-28 09:58 [facility] 11.7 ng/ml (missing) ESTIMATED AVERAGE GLUCOSE 2025-03-28 09:58 [facility] 117 mg/dl (missing) HGB - HEMOGLOBIN 2025-03-28 09:58 [facility] 13.3 g/dl (missing) SODIUM 2025-03-28 09:58 [facility] 138 mmol/l Unknown AST ASPARTATE AMINOTRANSFERASE 2025-03-28 09:58 [facility] ([facility] 14 iu/l As of February 2023 testing method has changed, this may include reference ranges. RED CELL DISTRIBUTION WIDTH 2025-03-28 09:58 [facility] ([facility]AM[facility] 14.1 % (missing) CHOLESTEROL 2025-03-28 09:58 [facility] 167 mg/dl Total Cholesterol Risk Classification Cholesterol Level Risk Classification <200 mg/dL Desirable 200-239 mg/dL Borderline High >240 mg/dL High As of February 2023 testing method has changed, this may include reference ranges. BUN - BLOOD UREA NITROGEN 2025-03-28 09:58 [facility] 17 mg/dl As of February 2023 testing method has changed, this may include reference ranges. PLT - PLATELET COUNT 2025-03-28 09:58 [facility] 187 10 3/ul (missing) VLDL CHOLESTEROL 2025-03-28 09:58 [facility] 19 mg/dl (missing) CHOL/HDL RATIO 2025-03-28 09:58 [facility] 2.7 (missing) NATIONAL CHOLESTEROL GUIDELINE [facility] ([facility]) guidelines for classificaton, testing and management of cholesterol levels in adults over 20 years of age. This new classification creates three categories of risk for coronary heart disease, regardless of age or sex, according to total amd LDL cholesterols levels: Based on total cholesterol level Desirable <200 mg/dl Borderline-high 200-239 mg/dl High >=240 mg/dl Based on cholesterol ratio CHD RISK CHOL/HDL RATIO --- MALE FEMALE 0.5 x Average 3.4 3.3 1.0 x Average 5.0 4.4 2.0 x Average 9.6 7.1 3.0 x Average 13.5 11.0 VITAMIN B12 2025-03-28 09:58 [facility] 208 pg/ml VITAMIN B12 RANGES: NORMAL 180 - 914 INDETERMINATE 145 -180 DEFICIENT < 145 % IRON SATURATION 2025-03-28 09:58 [facility] 25 % (missing) TRANSFERRIN 2025-03-28 09:58 [facility] 263 mg/dl As of February 2023 testing method has changed, this may include reference ranges. MEAN CORPUSCULAR HEMOGLOBIN 2025-03-28 09:58 [facility] 28.5 pg (missing) VITAMIN D 25-HYDROXY 2025-03-28 09:58 [facility] 29.1 ng/ml Vitamin D deficiency has been defined by the [place] [employer] and an Endocrine Society practice guideline as a level of serum 25-OH vitamin D less than 20 ng/mL (1,2). The Endocrine Society went on to further define vitamin D insufficiency as a level between 21 and 29 ng/mL (2). 1. IOM ([place] [employer]). 2010. Dietary reference intakes for calcium and D. [place]: The National Academies Press. 2. Rodrigo MF, Yaya NC, Radha LUU, et al. Evaluation, treatment, and prevention of vitamin D deficiency: an Endocrine Society clinical practice guideline. JCEM. 2010; 96(7):1911-30. Performed at: - [facility] [address], [place], [place] [id number] Applications Architect: Tesfaye Lentz MD, Phone: [phone] GLOBULIN 2025-03-28 09:58 [facility] 3.1 g/dl (missing) NEUTROPHILS # (AUTO) 2025-03-28 09:58 [facility] 3.6 10 3/ul (missing) POTASSIUM 2025-03-28 09:58 [facility] 3.8 mmol/l As of February 2023 testing method has changed, this may include reference ranges. MEAN CORPUSCULAR HGB CONC 2025-03-28 09:58 [facility] 31.1 g/dl (missing) CARBON DIOXIDE - CO2 2025-03-28 09:58 [facility] 34 mmol/l As of February 2023 testing method has changed, this may include reference ranges. TOTAL IRON BINDING CAPACITY 2025-03-28 09:58 [facility] 368 ug/dl (missing) ALBUMIN 2025-03-28 09:58 [facility] 4.2 g/dl As of February 2023 testing method has changed, this may include reference ranges. RED BLOOD COUNT 2025-03-28 09:58 [facility] ([facility] 4.66 10 6/ul (missing) HCT - HEMATOCRIT 2025-03-28 09:58 [facility] 42.8 % (missing) ANION GAP 2025-03-28 09:58 [facility] 5.0 (missing) (missing) WHITE BLOOD COUNT 2025-03-28 09:58 [facility] ([facility] 5.0 x10 3/ul (missing) HEMOGLOBIN A1c% 2025-03-28 09:58 [facility] 5.7 % The [place] Diabetes Association (ADA) has made the following recommendations: Monitoring HbA1c in Diabetic Patients: A1c (NGSP%) Goal <8 Less Stringent Goal <7 General Goal <6.5 More Stringent Goal Diagnosis of Diabetes: A1c (NGSP%) Goal >6.5 Diabetic 5.7-6.4 Pre-Diabetic <5.7 Non-Diabetic HDL CHOLESTEROL 2025-03-28 09:58 [facility] 61 mg/dl Coronary Heart Disease Risk Classification HDL Level Risk factor < 40 mg/dL major risk > 60 mg/dL negative risk As of February 2023 testing method has changed, this may include reference ranges. TOTAL PROTEIN 2025-03-28 09:58 [facility] 7.3 g/dl As of February 2023 testing method has changed, this may include reference ranges. ALKALINE PHOSPHATASE 2025-03-28 09:58 [facility] 77 iu/l As of February 2023 testing method has changed, this may include reference ranges. ALT ALANINE AMINOTRANSFERASE 2025-03-28 09:58 [facility] 8 iu/l As of February 2023 testing method has changed, this may include reference ranges. LDL CHOLESTEROL,CALCULATE D 2025-03-28 09:58 [facility] 87 mg/dl LDLD REFERENCE RANGE AND CARDIOVASCULAR RISK: <130 mg/dL Desirable 130-159 mg/dL Borderline High Risk >160 mg/dL High Risk CALCIUM 2025-03-28 09:58 [facility] 9.4 mg/dl As of February 2023 testing method has changed, this may include reference ranges. MEAN CORPUSCULAR VOLUME 2025-03-28 09:58 [facility] 91.8 fl (missing) IRON 2025-03-28 09:58 [facility] 92 ug/dl As of February 2023 testing method has changed, this may include reference ranges. GFR - MDRD 2025-03-28 09:58 [facility] 96 (missing) The IDMS-traceable MDRD Study Equation has been validated extensively in and populations between the ages of 18 and 70 with impaired kidney function (eGFR < 60 mL/min/1.73m2) and has shown good performance for patients with all common causes of kidney disease. Although this equation has not been validated for patients older than 70, an MDRD-derived eGFR may still be a useful tool for providers caring for patients older than 70. References: http://www.nkdep.ni h.gov/lab-evaluatio n/gfr/creatinine-st and ardization, last updated October 2011. TRIGLYCERIDES 2025-03-28 09:58 [facility] (ABAM[facility] 96 mg/dl Unknown Triglyceride Risk Classification <150 mg/dL Normal 150-199 mg/dL Borderline High 200-499 mg/dL High >500 mg/dL Very High As of February 2023 testing method has changed, this may include reference ranges. CHLORIDE 2025-03-28 09:58 [facility] 99 mmol/l As of February 2023 testing method has changed, this may include reference ranges. MISC TEST [facility] AMBIENT 2025-03-28 09:58 [facility] [employer] [facility] (ABAM[facility] COMMENT (missing) TSH/W REFLEX [id number] TSH/W REFLEX Test Ordered: [id number] TSH Rfx on Abnormal to Free T4 TSH 1.180 uIU/mL Reference Range: 0.450-4.500 Performed at: - [facility] [place] [address], [place], [place] [id number] Applications Architect: Tesfaye Lentz MD, Phone: [phone] Result panel 2 RBC,URINE 2025-03-28 10:05 [facility] 0-5 /hpf (missing) UROBILINOGEN,URI NE 2025-03-28 10:05 [facility] 0.2 (NORMAL) e.u./dl (missing) SPECIFIC GRAVITY,URINE 2025-03-28 10:05 [facility] 1.010 (missing) (missing) WBC,URINE 2025-03-28 10:05 [facility] 4-5 /hpf (missing) PH,URINE 2025-03-28 10:05 [facility] 7.5 ph (missing) CLARITY,URINE 2025-03-28 10:05 [facility] CLEAR (missing) (missing) BACTERIA,URINE 2025-03-28 10:05 [facility] Few /hpf (missing) COLOR,URINE 2025-03-28 10:05 [facility] ([facility] LIGHT YELLOW (missing) (missing) SQUAMOUS EPITHELIAL CELL,UR 2025-03-28 10:05 [facility] MOD Squamous (missing) (missing) NITRITE,URINE 2025-03-28 10:05 [facility] NEGATIVE (missing) (missing) OCCULT BLOOD,URINE 2025-03-28 10:05 [facility] NEGATIVE (missing) (missing) BILIRUBIN,URINE 2025-03-28 10:05 [facility] NEGATIVE (missing) Bilirubin can be influenced by color interference. Please correlate positive results with clinical presentation GLUCOSE, URINE (UA) 2025-03-28 10:05 [facility] NEGATIVE mg/dl (missing) KETONES,URINE (UA) 2025-03-28 10:05 [facility] NEGATIVE mg/dl (missing) PROTEIN,URINE 2025-03-28 10:05 [facility] ([facility] NEGATIVE mg/dl (missing) LEUKOCYTE ESTERASE, URINE 2025-03-28 10:05 [facility] SMALL (missing) (missing) Social History date description facility
[2025-06-19 09:48] LABS: ALT ALANINE AMINOTRANSFERASE 10.0 IU/L (10-60); AST ASPARTATE AMINOTRANSFERASE 13.0 IU/L (10-42); BUN - BLOOD UREA NITROGEN 20.0 mg/dL (6-20); CARBON DIOXIDE - CO2 29.0 mmol/L (21-32); CREATININE 0.6 mg/dL (0.6-1.3); GFR - MDRD 96.0 (>89)
[2025-06-19 09:56] LABS: TROPONIN I HIGH SENSITIVITY 17.1 ng/L (2.3-14.8)
--- NOTE | 2025-06-19 09:58 | XRAY Report ---
PROCEDURE: XR Chest 1V INDICATIONS: Chest pain TECHNIQUE: One view of the chest was acquired. COMPARISON: 06/13/2022 FINDINGS: Surgical changes and devices: None. Lungs and pleura: Mild interstitial pulmonary edema. Mediastinum: Mediastinal contours appear normal. Heart size is mildly enlarged. Bones and chest wall: No suspicious bony lesions. Overlying soft tissues appear unremarkable. IMPRESSION: Mild congestive heart failure exacerbation. Reviewed by: Robert Hu MD on 06/19/2025 9:55 AM PST Approved by: Robert Hu MD on 06/19/2025 9:55 AM PST Station ID: [id number]
--- NOTE | 2025-06-19 10:38 | ED Physician Documentation ---
PD HPI DYSPNEA Stated complaint Stated Complaint: SOA, LT SIDE PX Chief complaint Chief Complaint: Back Pain History obtained from History obtained from: Patient History of Present Illness Timing - onset: Last night (about 4-5 AM, and told spouse about it when he got up about 6 am. Had left sided chest pain, worse with movement and breathing. No recent cough, fever.) Timing - onset during: Sleep Timing - duration: Hours (lasted an hour or two.) Timing - details: Abrupt onset and Now resolved (but having feeling of dyspnea still. ) Inciting event(s): No URI Improved by: Rest Worsened by: No Laying flat Associated symptoms: Wheezing and Chest pain / discomfort; No Fever, Cough, Hemoptysis, Palpitations or Bilateral edema Similar symptoms before: Diagnosis (historyof atrial fib, CHF, stents. Last seen by Cardiology WELDING PANTOGRAPH MACHINE OPERATOR February 2025 and their consultation note is present in [facility] here. ) Meds/Allgy Home Medications Ambulatory Orders Medication Instructions Recorded Confirmed cholecalciferol (vitamin D3) 50 100 mcg (2 x 50 mcg (2 ,000 unit)) 07/02/24 06/19/25 mcg (2,000 unit) capsule PO QDAY #30 caps flaxseed oil 1,000 mg capsule 1,000 mg PO QDAY #30 cap s 07/02/24 06/19/25 nitroglycerin 0.4 mg sublingual 0.4 mg sublingual Q5M PRN chest 07/02/24 06/19/25 tablet pain #30 tabs sotalol 80 mg tablet 80 mg PO BID #180 tabs 07/0206/19/25 apixaban 5 mg tablet (Eliquis) 5 mg PO BID #180 tabs 1 09/03/23 06/19/25 pravastatin 40 mg tablet 40 mg PO QPM #90 tabs 06/19/25 levothyroxine 75 mcg tablet 75 mcg PO QDAY #90 tabs 06/19/25 (Synthroid) magnesium oxide 400 mg PO .three times a wee k 03/21/25 06/19/25 calcium carbonate (Super Calcium) 600 mg PO BID 06/19/25 Allergies Allergies Allergy/AdvReac Type Severity Reaction Status Date / Time ibuprofen AdvReac Intermediate upset Verified 06/19/25 09:04 stomach PFSH Active Problems All Active Problems (Updated 06/19/25 @ 14:17 by Joseluis Mullen MD) CHF exacerbation (Acute) Acute on chronic respiratory failure with hypoxemia (Acute) CHF exacerbation (Acute) Hypoxia (Acute) Acute dyspnea (Acute) Nocturnal hypoxia (Acute) Mild cognitive impairment (Acute) Confusion (Acute) Vascular dementia (Acute) Essential hypertension (Chronic) Non-ST elevated myocardial infarction (Acute) Atrial fibrillation (Acute) Mixed hyperlipidemia (Acute) Hypothyroidism (Acute) Mild sleep apnea (Acute) GERD (gastroesophageal reflux disease) (Acute) Osteopenia (Acute) Generalized osteoarthritis (Acute) Seborrheic dermatitis (Acute) Eczema (Acute) Recurrent UTI (Acute) Cystocele with uterine prolapse (Acute) Pelvic floor instability (Acute) Lipoma of left thigh (Acute) Physical deconditioning (Acute) Medical History Medical History Plantar fasciitis Right tibial fracture 03/2017 Superficial thrombophlebitis Pulmonary nodules RUL + RLL, stable on CT 11/2021, no f/u required, non-smoker COVID-19 virus infection 08/2023 Surgical History Surgical History S/P ablation of atrial fibrillation 09/2021 S/P ablation of atrial fibrillation 02/2021, cyro + RF ablation, not successful S/P total right hip arthroplasty 03/2020 H/O colonoscopy 05/2017 H/O esophagogastroduodenoscopy 07/2017 H/O colonoscopy 01/2008 S/P left knee arthroscopy 09/2004 S/P left knee arthroscopy 05/2004 H/O partial thyroidectomy 05/2001, benign cyst S/P MARY-BSO 09/1996, due to bladder prolapse S/P ORIF (open reduction internal fixation) fracture ~1995, left wrist fracture Family History Family History Brother Diabetes Atrial fibrillation CKD (chronic kidney disease) requiring chronic dialysis Father CVA (cerebral vascular accident) Social History Social History (Updated 04/29/25 @ 11:13 by ALTON STALLINGS LPN) Smoking Status: Never smoker Second hand tobacco smoke exposure: No Do you dip or chew tobacco?: No Do you vape?: No Living arrangement: At home Marital Status: Living Condition: With spouse/s.o. Support Person: Yes Level: Assisted Home Mobility Equipment: Cane Do you feel safe in your home environment?: Yes History of physical, verbal, emotional, or financial abuse?: No ETOH Use: Wine Frequency: Occasional Substance Use: denies use Are you sexually active?: No Occupation - Current: [employer] Retired: Yes Service: No POLST Patient has POLST: No Exam Exam Vital Signs: Vital Signs x48h Temp Pulse Resp BP Pulse Ox O2 Flow Rate 06/19/25 13:51 84 18 121/69 96 2 06/19/25 13:00 82 24 116/89 92 2 06/19/25 12:48 81 30 H 138/76 H 92 1 06/19/25 12:22 82 24 132/65 H 89 L 06/19/25 12:00 85 18 137/85 H 97 2 06/19/25 11:00 92 18 155/72 H 97 2 06/19/25 10:00 83 18 162/88 H 97 2 06/19/25 09:54 84 18 160/86 H 97 06/19/25 09:07 84 18 157/94 H 96 06/19/25 09:00 37.6 C 83 18 173/84 H 94 tachypnea and low sats on room air. Constitutional normal general appearance, no apparent distress and average body habitus Neck/C-Spine supple, no meningeal signs and no carotid bruits Lymph no lymphadenopathy noted Respiratory abnormal respiratory effort (labored), no wheezes and rales noted (base) Cardiovascular normal heart rate noted, regular rhythm noted and edema noted (1+ edema in both lower legs. ) Gastrointestinal abdomen soft to palpation and nontender to palpation Extremities no tenderness and full ROM Neurology speech normal Psychiatry mental status grossly normal, thought process normal and cooperative Results Vitals Vitals: Vital Signs - 24 hr 06/19/25 09:00 06/19/25 09:07 06/19/25 09:54 Temperature 37.6 C Temperature Source Temporal Artery Scan Pulse Rate 83 84 84 Respiratory Rate 18 18 18 Blood Pressure 173/84 H 157/94 H 160/86 H O2 Saturation 94 96 97 O2 Source Room air Room air Room air If not protocol: Oxygen Flow, liters/minute Pain Intensity 8 2 2 06/19/25 10:00 06/19/25 11:00 06/19/25 11:19 Temperature Temperature Source Pulse Rate 83 92 Respiratory Rate 18 18 Blood Pressure 162/88 H 155/72 H O2 Saturation 97 97 O2 Source Nasal cannula Nasal cannula If not protocol: Oxygen Flow, liters/minute 2 2 Pain Intensity 2 4 6 06/19/25 12:00 06/19/25 12:22 06/19/25 12:48 Temperature Temperature Source Pulse Rate 85 82 81 Respiratory Rate 18 24 30 H Blood Pressure 137/85 H 132/65 H 138/76 H O2 Saturation 97 89 L 92 O2 Source Nasal cannula Room air Nasal cannula If not protocol: Oxygen Flow, liters/minute 2 1 Pain Intensity 0 0 0 06/19/25 13:00 06/19/25 13:51 Temperature Temperature Source Pulse Rate 82 84 Respiratory Rate 24 18 Blood Pressure 116/89 121/69 O2 Saturation 92 96 O2 Source Nasal cannula Nasal cannula If not protocol: Oxygen Flow, liters/minute 2 2 Pain Intensity 0 0 Oxygen O2 Source Nasal cannula EKG (time done) 0910: EKG releavant findings:: EKG personally interpreted by author of this note. Relevant findings are: Rate: Rate (enter#) (84) Rhythm: NSR [place]: Normal Intervals: Normal [place] QRS: QRS normal Ischemia: Normal ST segments; No ST elevation c/w ischemia Labs Labs: Laboratory Tests 06/19/25 06/19/25 06/19/25 09:27 09:31 11:13 WBC 8.6 RBC 4.14 L Hgb 11.5 L Hct 39.0 MCV 94.2 MCH 27.8 MCHC 29.5 L RDW 15.4 H Plt Count 167 MPV 10.6 Neut # (Auto) 7.2 H Lymph # (Auto) 0.5 L Day # (Auto) 0.8 Eos # (Auto) 0.1 Baso # (Auto) 0.0 Absolute Nucleated RBC 0.00 Nucleated RBC % 0.0 D-Dimer 227.7 Sodium 139 Potassium 4.1 Chloride 104 Carbon Dioxide 29 Anion Gap 6.0 BUN 20 Creatinine 0.6 Estimated GFR (MDRD) 96 Glucose 117 H Calcium 8.9 Magnesium 1.9 Total Bilirubin 1.2 H AST 13 ALT 10 Alkaline Phosphatase 62 Troponin I High Sens 17.1 H* 18.6 H* B-Natriuretic Peptide 205 H Total Protein 6.9 Albumin 3.9 Globulin 3.0 Albumin/Globulin Ratio 1.3 Lipase 18 Nasal Adenovirus (PCR) Nasal B. parapertussis DNA (PCR) Nasal Coronavir 229E PCR Nasal Coronavir HKU1 PCR Nasal Coronavir NL63 PCR Nasal Coronavir OC43 PCR Nasal Enterovir/Rhinovir PCR Nasal Influenza B PCR Nasal Influenza A PCR Nasal Parainfluen 1 PCR Nasal Parainfluen 2 PCR Nasal Parainfluen 3 PCR Nasal Parainfluen 4 PCR Nasal RSV (PCR) Nasal B.pertussis DNA PCR Nasal C.pneumoniae (PCR) Gary Human Metapneumo PCR Nasal M.pneumoniae (PCR) Nasal SARS-CoV-2 (PCR) 06/19/25 11:53 WBC RBC Hgb Hct MCV MCH MCHC RDW Plt Count MPV Neut # (Auto) Lymph # (Auto) Day # (Auto) Eos # (Auto) Baso # (Auto) Absolute Nucleated RBC Nucleated RBC % D-Dimer Sodium Potassium Chloride Carbon Dioxide Anion Gap BUN Creatinine Estimated GFR (MDRD) Glucose Calcium Magnesium Total Bilirubin AST ALT Alkaline Phosphatase Troponin I High Sens B-Natriuretic Peptide Total Protein Albumin Globulin Albumin/Globulin Ratio Lipase Nasal Adenovirus (PCR) NOT DETECTED Nasal B. parapertussis DNA (PCR) NOT DETECTED Nasal Coronavir 229E PCR NOT DETECTED Nasal Coronavir HKU1 PCR NOT DETECTED Nasal Coronavir NL63 PCR NOT DETECTED Nasal Coronavir OC43 PCR NOT DETECTED Nasal Enterovir/Rhinovir PCR NOT DETECTED Nasal Influenza B PCR NOT DETECTED Nasal Influenza A PCR NOT DETECTED Nasal Parainfluen 1 PCR NOT DETECTED Nasal Parainfluen 2 PCR NOT DETECTED Nasal Parainfluen 3 PCR NOT DETECTED Nasal Parainfluen 4 PCR NOT DETECTED Nasal RSV (PCR) NOT DETECTED Nasal B.pertussis DNA PCR NOT DETECTED Nasal C.pneumoniae (PCR) NOT DETECTED Gary Human Metapneumo PCR NOT DETECTED Nasal M.pneumoniae (PCR) NOT DETECTED Nasal SARS-CoV-2 (PCR) NOT DETECTED Rads (name of study) chest CT-A: Relevant Findings:: Final report received Interpretation: EXAM: [id number] CT/TANG ([id number]) PROCEDURE: CT Angio Chest INDICATIONS: dyspnea, hypoxia, chest pain CONTRAST: 80ml omni 300 TECHNIQUE: After the administration of intravenous contrast images of the chest were acquired. 3-dimensional coronal oblique maximum intensity projection (MIP) reformats, axial MIP, and coronal and sagittal MPR reformats were then performed through the chest. For radiation dose reduction, the following was used: automated exposure control, adjustment of mA and/or kV according to patient s ize. COMPARISON: December 02, 2021 FINDINGS: Image quality: Excellent. Large vessels: No filling defects within the opacified pulmonary arteries, accounting for motion and contrast timing. No evidence of acute aortic syndrome or aortic aneurysm. Lungs and pleura: No consolidation. Trace bilateral pleural effusion and mild compressive atelectasis in the lower lobes. Stable solid pulmonary nodules, the largest measuring 6 mm in the right lower lobe. Mediastinum: Heart size is normal. No pericardial effusion. No large vessel abnormality. No mediastinal adenopathy by size criteria. Chest wall and lower neck: Thyroid is unremarkable. No axillary or supraclavicular adenopathy by size. Bones: No aggressive osseous abnormality. Diffuse idiopathic skeletal hyperostosis. Upper Abdomen: Unremarkable. IMPRESSION: No pulmonary embolus. Trace bilateral effusions Reviewed by: Rehan Salas MD on 06/19/2025 2:25 PM PST chest xray: Relevant Findings:: Final report received and EMP independent interpretation of test (incrased vascular prominence c/w CHF. No ifniltlrates nor effusions. ) PD Medical Decision Making ED course Complexity details: reviewed results (chemistry and renal function are good. Pt in NSR rate controlled. Minimal leg edema and no calf tenderness. Monitor showing NSR.), re-evaluated patient (improving feeling of dyspnea with diuretic IV Lasix. She states has urinated several times. Sats however were still 86-88% on RA when tested off. ), considered differential (CHF, VT, PE, pneumonia, PTX, anemia, as more concerning to evaluate. ), d/w patient, d/w family (spouse) and d/w corporate learning consultant (I talked with his Cardiology group, WELDING PANTOGRAPH MACHINE OPERATOR who sees him, and she felt pt can be simply treated with diuresis, given no other complicating factor going on. I conveyed this to our hospitalist, who will see pt for hospitaliz ation. ) ED course: The patient and her states she had some dyspnea yesterday but really noticeably worse overnight associated with some pain in the left chest that was nonpleuritic. No recent cough cold or fevers. She does have a history of diastolic dysfunction but states no notable CHF episodes in the past. Medicine list suggests a hydrochlorothiazide, Eliquis, sotalol, metoprolol. However the patient only states the hydrochlorothiazide and sotalol. She denies blood thinners. She has been taking the metoprolol. She presents in sinus rhythm. Had prior history of atrial fibrillation with ablation. She has not had any notable leg edema. Some orthopnea. EKG showed a sinus rhythm without any acute ischemic changes. Chest x-ray shows vascular congestion without any effusion. No infiltrates noted. Electrolytes and kidney function are good. Given the pain in the chest along with dyspnea and hypoxia, I did do a CT of the chest. Her D-dimer was negative but we would be able to look for other parenchymal abnormalities as well. Her troponin was minimally elevated above normal with a repeat 1 essentially the same. No signs of acute VT. Apparent CHF exacerbation without concurrent stressor such as infection and VT etc. We did give diuretics Lasix 20 mg IV with good diuresis. She has been to the bathroom several times. However she still remains hypoxic on room air down to the 86 to 88%. She responds quite well to nasal cannula which is 2 L. I did talk with the patient's cardiology group, Miss Squires who is the nurse pra ctitioner that has been seeing the patient. She thought it appropriate to just hospitalized here given her heart history. She did not see a reason for transfer. I talked with hospitalist group here who will see the patient and placed in observation. Discharge Plan Discharge Patient Disposition: ED Place in Observation Condition: Stable Clinical Impression: Acute dyspnea, Hypoxia, CHF exacerbation Interventions: ED Admission Assessment Last Done: 06/19/25 14:45 Vitals documented within 30 minutes of discharge?: Yes
[2025-06-19] MEDS: KETOROLAC 15 MG/ML VIAL IVP STA (11:19)
[2025-06-19] MEDS: FUROSEMIDE 20 MG/2 ML VIAL IVP STA (11:19)
[2025-06-19 14:09] LABS: B. PARAPERTUSSIS- RESP PCR PAN NOT DETECTED; B. PERTUSSIS- RESP PCR PANEL NOT DETECTED; C. PNEUMONIAE- RESP PCR PANEL NOT DETECTED; CORONAVIRUS 229E-RESP PCR NOT DETECTED; CORONAVIRUS HKU1-RESP PCR NOT DETECTED; CORONAVIRUS NL63-RESP PCR NOT DETECTED; CORONAVIRUS OC43-RESP PCR NOT DETECTED; HUMAN METAPNEUMOVIRUS NOT DETECTED; INFLUENZA A- RESP PCR PANEL NOT DETECTED; INFLUENZA B - RESP PCR PANEL NOT DETECTED; M. PNEUMONIAE- RESP PCR PANEL NOT DETECTED; PARAINFLUENZA VIRUS 1 NOT DETECTED; PARAINFLUENZA VIRUS 2 NOT DETECTED; PARAINFLUENZA VIRUS 4 NOT DETECTED; RHINOVIRUS/ENTEROVIRUS NOT DETECTED; RSV- RESP PCR PANEL NOT DETECTED; SARS-CoV-2 -RESP PCR PANEL NOT DETECTED
--- NOTE | 2025-06-19 14:28 | CT Report ---
PROCEDURE: CT Angio Chest INDICATIONS: dyspnea, hypoxia, chest pain CONTRAST: 80ml omni 300 TECHNIQUE: After the administration of intravenous contrast images of the chest were acquired. 3-dimensional coronal oblique maximum intensity projection (MIP) reformats, axial MIP, and coronal and sagittal MPR reformats were then performed through the chest. For radiation dose reduction, the following was used: automated exposure control, adjustment of mA and/or kV according to patient size. COMPARISON: December 02, 2021 FINDINGS: Image quality: Excellent. Large vessels: No filling defects within the opacified pulmonary arteries, accounting for motion and contrast timing. No evidence of acute aortic syndrome or aortic aneurysm. Lungs and pleura: No consolidation. Trace bilateral pleural effusion and mild compressive atelectasis in the lower lobes. Stable solid pulmonary nodules, the largest measuring 6 mm in the right lower lobe. Mediastinum: Heart size is normal. No pericardial effusion. No large vessel abnormality. No mediastinal adenopathy by size criteria. Chest wall and lower neck: Thyroid is unremarkable. No axillary or supraclavicular adenopathy by size. Bones: No aggressive osseous abnormality. Diffuse idiopathic skeletal hyperostosis. Upper Abdomen: Unremarkable. IMPRESSION: No pulmonary embolus. Trace bilateral effusions Reviewed by: Rehan Salas MD on 06/19/2025 2:25 PM PST Approved by: Rehan Salas MD on 06/19/2025 2:25 PM PST Station ID: [id number]
--- NOTE | 2025-06-19 14:32 | PHARMACY PROGRESS NOTE ---
Best Possible Medication History Admit Date and Time: Home Medications Medication Instructions Recorded Confirmed Type cholecalciferol (vitamin D3) 50 100 mcg (2 x 50 mcg (2 ,000 unit)) 07/02/24 06/19/25 Rx mcg (2,000 unit) capsule PO QDAY #30 caps flaxseed oil 1,000 mg capsule 1,000 mg PO QDAY #30 cap s 07/02/24 06/19/25 Rx nitroglycerin 0.4 mg sublingual 0.4 mg sublingual Q5M PRN chest 07/02/24 06/19/25 Rx tablet pain #30 tabs sotalol 80 mg tablet 80 mg PO BID #180 tabs 07/0206/19/25 Rx apixaban 5 mg tablet (Eliquis) 5 mg PO BID #180 tabs 1 09/03/23 06/19/25 Rx pravastatin 40 mg tablet 40 mg PO QPM #90 tabs 06/19/25 Rx levothyroxine 75 mcg tablet 75 mcg PO QDAY #90 tabs 06/19/25 Rx (Synthroid) magnesium oxide 400 mg PO .three times a wee k 03/21/25 06/19/25 History calcium carbonate (Super Calcium) 600 mg PO BID 06/19/25 History Processed by: Pharmacy Medications reviewed in ED?: Yes Medication History completed: Yes Patient Interview: Completed Secondary Source(s): Written medication list [facility] Statement: As the person ultimately responsible for medication therapy, providers are able to order a medication from an existing home medication list in [facility] via the "Reconcile Routine" prior to Confirmation of that medication by manager technical support. Such practice is discouraged except when the physician, in their clinical judgment, deems that a medical need exists for a medication without regard to previous use.
--- NOTE | 2025-06-19 14:53 | HISTORY & PHYSICAL EXAMINATION ---
<Statement entered by Solomon Bloom DNP - 06/19/25 18:10> Patient was seen and examined by me with a separate encounter after being seen by [employer] student. I reviewed the student's documentation including patient history, physical examination, laboratory, imaging, clinical assessment and treatment plan. I have discussed the management of the patient with the student, and with the patient. There are no changes. Briefly, patient is being placed in observation for acute exacerbation of heart failure. She has a recent echo, so I am not repeating this. She received 20 mg Lasix IV push in the ER. She is not on home diuretics, I ordered another 20 mg push to start daily tomorrow. Resting comfortably in bed. Restarting sotalol and Eliquis for her atrial fibrillation. Fluid restriction, telemetry History of Present Illness History of Present Illness HPI Comment/Other: Jessica García is a 80-year-old female with a history of CHF, Afib, and HTN who presented to the ER today for shortness of breath and left sided chest pressure. Starting last night (06/18) she began to develop chest discomfort and dyspnea that did not go away and instead became worse overnight. She says that this has happened several times over the last few years. She denies that this incident was worse than previous incidents in the past, but wanted to get it checked out given her cardiac history. She reports having a heart procedure done a few years ago. She has no history of smoking. She has no close contacts that smoke. She denies history of previous asthma, COPD, or other respiratory disorders. Meds/Allgy Home Medications Ambulatory Orders Medication Instructions Recorded Confirmed cholecalciferol (vitamin D3) 50 100 mcg (2 x 50 mcg (2 ,000 unit)) 07/02/24 06/19/25 mcg (2,000 unit) capsule PO QDAY #30 caps flaxseed oil 1,000 mg capsule 1,000 mg PO QDAY #30 cap s 07/02/24 06/19/25 nitroglycerin 0.4 mg sublingual 0.4 mg sublingual Q5M PRN chest 07/02/24 06/19/25 tablet pain #30 tabs sotalol 80 mg tablet 80 mg PO BID #180 tabs 07/0206/19/25 apixaban 5 mg tablet (Eliquis) 5 mg PO BID #180 tabs 1 09/03/23 06/19/25 pravastatin 40 mg tablet 40 mg PO QPM #90 tabs 06/19/25 levothyroxine 75 mcg tablet 75 mcg PO QDAY #90 tabs 06/19/25 (Synthroid) magnesium oxide 400 mg PO .three times a wee k 03/21/25 06/19/25 calcium carbonate (Super Calcium) 600 mg PO BID 06/19/25 Allergies Allergies Allergy/AdvReac Type Severity Reaction Status Date / Time ibuprofen AdvReac Intermediate upset Verified 06/19/25 09:04 stomach PFSH Active Problems All Active Problems (Updated 06/19/25 @ 14:17 by Joseluis Mullen MD) CHF exacerbation (Acute) Acute on chronic respiratory failure with hypoxemia (Acute) CHF exacerbation (Acute) Hypoxia (Acute) Acute dyspnea (Acute) Nocturnal hypoxia (Acute) Mild cognitive impairment (Acute) Confusion (Acute) Vascular dementia (Acute) Essential hypertension (Chronic) Non-ST elevated myocardial infarction (Acute) Atrial fibrillation (Acute) Mixed hyperlipidemia (Acute) Hypothyroidism (Acute) Mild sleep apnea (Acute) GERD (gastroesophageal reflux disease) (Acute) Osteopenia (Acute) Generalized osteoarthritis (Acute) Seborrheic dermatitis (Acute) Eczema (Acute) Recurrent UTI (Acute) Cystocele with uterine prolapse (Acute) Pelvic floor instability (Acute) Lipoma of left thigh (Acute) Physical deconditioning (Acute) Medical History Medical History Plantar fasciitis Right tibial fracture 03/2017 Superficial thrombophlebitis Pulmonary nodules RUL + RLL, stable on CT 11/2021, no f/u required, non-smoker COVID-19 virus infection 08/2023 Surgical History Surgical History S/P ablation of atrial fibrillation 09/2021 S/P ablation of atrial fibrillation 02/2021, cyro + RF ablation, not successful S/P total right hip arthroplasty 03/2020 H/O colonoscopy 05/2017 H/O esophagogastroduodenoscopy 07/2017 H/O colonoscopy 01/2008 S/P left knee arthroscopy 09/2004 S/P left knee arthroscopy 05/2004 H/O partial thyroidectomy 05/2001, benign cyst S/P MARY-BSO 09/1996, due to bladder prolapse S/P ORIF (open reduction internal fixation) fracture ~1995, left wrist fracture Family History Family History Brother Diabetes Atrial fibrillation CKD (chronic kidney disease) requiring chronic dialysis Father CVA (cerebral vascular accident) Social History Social History (Updated 04/29/25 @ 11:13 by ALTON STALLINGS LPN) Smoking Status: Never smoker Second hand tobacco smoke exposure: No Do you dip or chew tobacco?: No Do you vape?: No Living arrangement: At home Marital Status: Living Condition: With spouse/s.o. Support Person: Yes Level: Assisted Home Mobility Equipment: Cane Do you feel safe in your home environment?: Yes History of physical, verbal, emotional, or financial abuse?: No ETOH Use: Wine Frequency: Occasional Substance Use: denies use Are you sexually active?: No Occupation - Current: [employer] Retired: Yes Service: No POLST Patient has POLST: No Review of Systems Status of ROS: 10 or more systems reviewed and unremarkable except as noted in history and below Constitutional Reports: Fatigue; Denies: Fever or Chills Cardiovascular Reports: palpitations and shortness of breath with exertion Respiratory Reports: Shortness of breath and Orthopnea; Denies: Cough or Sputum production Gastrointestinal Denies: Nausea or Vomiting Neurological Reports: Headache (around sinuses) Endocrine Reports: Fatigue Exam Exam Vital Signs: Vital Signs x48h Temp Pulse Pulse Resp BP BP Pulse Ox 06/19/25 15:25 97.7 F 84 21 159/91 H 96 06/19/25 14:43 76 20 151/78 H 94 06/19/25 13:51 84 18 121/69 96 06/19/25 13:00 82 24 116/89 92 06/19/25 12:48 81 30 H 138/76 H 92 06/19/25 12:22 82 24 132/65 H 89 L 06/19/25 12:00 85 18 137/85 H 97 06/19/25 11:00 92 18 155/72 H 97 O2 Flow Rate 06/19/25 15:25 1 06/19/25 14:43 1 06/19/25 13:51 2 06/19/25 13:00 2 06/19/25 12:48 1 06/19/25 12:22 06/19/25 12:00 2 06/19/25 11:00 2 Constitutional normal general appearance, no apparent distress and alert HENMT normocephalic and head/scalp atraumatic Neck/C-Spine visual inspection normal no JVD Respiratory breath sounds equal bilaterally, normal respiratory effort, no wheezes, rales noted (bilateral) (base) and no use of accessory muscles Cardiovascular normal heart rate noted, regular rhythm noted, no gallop, no rub, murmur noted (diastolic), no JVD, peripheral pulses 2+ throughout and no additional abnormal heart sounds Extremities normal to inspection, normal to palpation and no tenderness minor pitting edema Skin skin color normal Conclusion/Plan Problem List (1) Acute on chronic respiratory failure with hypoxemia: Plan: Jessica García is a 80-year-old female with a history of CHF, Afib, and HTN who presented to the ER today for shortness of breath and left sided chest pressure. Starting 06/18 she began to develop chest discomfort and dyspnea that became worse overnight. CXR: Mild congestive heart failure exacerbation. CTA: bilateral effusions, no PE. Troponin: 17.1(H), 18.6(H) BNP: 205(H) O2 Sat: previously 86-88% on RA, now 96% on 2L O2 nasal cannula. EKG: sinus rhythm, APCs. Exam and diagnostics suggestive of CHF exacerbation etiology. Lasix 20 mg IV given in ER. ER doc contacted pt's cardiology group who advised that Jessica Glover be admitted give her heart history. Pt continues to show signs of fluid overload: bilateral effusion, pedal edema. - Continue to monitor tele, vitals, and labs (BMP and CBC) - Continue to diurese patient as needed - Wean off O2 as tolerated. Goal of > 92% on RA. (2) CHF exacerbation: Plan: She has a history of ablation of Afib in 2020 and 2021. She had an NSTEMI in 2010. History of grade 3 diastolic dysfunction with LVEF 65% and mitral regurg in 05/2023. - Treated as above - Diet: Cardiac (3) Atrial fibrillation: Plan: History noted on admission - Continue on home meds Qualifiers: Atrial fibrillation type: paroxysmal Qualified Code(s): I48.0 - Paroxysmal atrial fibrillation (4) Essential hypertension: Plan: History noted on admission - Continue on home meds Lab Results Lab results reviewed: Yes 06/19/25 09:27 06/19/25 09:27 Diagnostic Imaging Results Diagnostic Imaging Results: positive Final report reviewed
[2025-06-19] MEDS ORDERED: ONDANSETRON 4 MG/2 ML VIAL IVP PRN (15:12)
[2025-06-19] MEDS ORDERED: ONDANSETRON ODT 4 MG TABLET TL PRN (15:12)
[2025-06-19] MEDS ORDERED: SODIUM CHLORIDE FLUSH 0.9% 10 ML SYRINGE IVP PRN (15:12)
[2025-06-19] MEDS: ACETAMINOPHEN 325 MG TABLET PO PRN (15:33)
[2025-06-19] MEDS: SODIUM CHLORIDE FLUSH 0.9% 10 ML SYRINGE IVP SCH (17:00)
[2025-06-19] MEDS: PRAVASTATIN 40 MG TABLET PO SCH (21:08)
[2025-06-19] MEDS: SOTALOL 80 MG TABLET PO SCH (21:08)
[2025-06-19] MEDS: APIXABAN 5 MG TABLET PO SCH (21:08)
[2025-06-20 05:23] LABS: HCT - HEMATOCRIT 34.7 % (37.0-47.0); HGB - HEMOGLOBIN 10.8 g/dL (12.0-16.0); MEAN PLATELET VOLUME 10.7 fL (7.9-10.8); NRBC ABSOLUTE COUNT (AUTO) 0.00 x10^3/uL; NUCLEATED RED BLOOD CELLS AUTO 0.0 /100WBC; PLT - PLATELET COUNT 154 10^3/uL (130-450); RED CELL DISTRIBUTION WIDTH 15.3 % (12.0-15.0)
[2025-06-20 05:38] LABS: BUN - BLOOD UREA NITROGEN 20.0 mg/dL (6-20); CARBON DIOXIDE - CO2 30.0 mmol/L (21-32); CREATININE 0.6 mg/dL (0.6-1.3); GFR - MDRD 96.0 (>89)
[2025-06-20] MEDS: LEVOTHYROXINE 75 MCG TABLET PO SCH (06:30)
[2025-06-20] MEDS: FUROSEMIDE 20 MG/2 ML VIAL IVP SCH (09:07)
--- NOTE | 2025-06-20 13:35 | Discharge Summary ---
<Statement entered by Solomon Bloom DNP - 06/20/25 14:35> Patient was seen and examined by me with a separate encounter after being seen by [employer] student. I reviewed the student's documentation including patient history, physical examination, laboratory, imaging, clinical assessment and treatment plan. I have discussed the management of the patient with the student, and with the patient. There are no changes. Briefly, patient was observed overnight for exacerbation of heart failure causing a new oxygen requirement. She was diuresed with IV Lasix, and has improvement in her symptoms. She reports having a recent echo, and is already established with cardiology. She is discharging home to follow-up with cardiology. I ordered a as needed Lasix for her to take at home and instructed her to keep a log of daily weights to present to her manager purchasing Discharge Summary Admit Date: 06/19/25 Discharge Date: 06/20/25 Discharging Provider: Solomon Bloom DNP Primary Care Provider: Staci Clark DNP DIAGNOSES Discharge Diagnoses with Status of Each Condition: (1) Acute on chronic respiratory failure with hypoxemia - Stable on RA (2) CHF exacerbation - Diuresed. Continue furosemide 20 mg PO daily PRN. (3) Atrial fibrillation - Continued on home meds, no acute exacerbations (4) Essential hypertension - Continued on home meds, no acute exacerbations HPI History of Present Illness: Jessica García is a 80-year-old female with a history of CHF, Afib, and HTN who presented to the ER today for shortness of breath and left sided chest pressure. Starting last night (06/18) she began to develop chest discomfort and dyspnea that did not go away and instead became worse overnight. She says that this has happened several times over the last few years. She denies that this incident was worse than previous incidents in the past, but wanted to get it checked out given her cardiac history. She reports having a heart procedure done a few years ago. She has no history of smoking. She has no close contacts that smoke. She denies history of previous asthma, COPD, or other respiratory disorders. ---- Briefly, patient is being placed in observation for acute exacerbation of heart failure. She has a recent echo, so I am not repeating this. She received 20 mg Lasix IV push in the ER. She is not on home diuretics, I ordered another 20 mg push to start daily tomorrow. Resting comfortably in bed. Restarting sotalol and Eliquis for her atrial fibrillation. Fluid restriction, telemetry HOSPITAL COURSE Hospital Course: Jessica García is a 80-year-old female with a history of CHF, Afib, and HTN who presented to the ER on 06/19 for shortness of breath and left sided chest pressure. Her symptoms started at home on 06/18 and got worse overnight. CXR, CTA, EKG, and labs were ordered by ER. CXR radiologist impression: "Mild congestive heart failure exacerbation." CTA: trace bilateral effusions, no PE. EKG: sinus rhythm, APCs. Troponin: 17.1(H), 18.6(H), 20.2(H), 23.7(H). BNP: 205(H) O2 Sat: previously 86-88% on RA in ER. She was placed on 2L O2 via nasal cannula. Presented with bilateral LE edema +1. Exam and diagnostics suggestive of CHF exacerbation etiology. ER doc contacted pt's cardiology group who advised that Jessica Glover be admitted given her heart history. Lasix 20 mg IV given in ER. She was admitted to the floor. She continued to have signs of fluid overload (bilateral lung rales, bilateral LE edema) but is improving. She stayed overnight where she continued to diurese. 11 AM physical signs of fluid overload continued to resolve. A second dose of Lasix 20 mg IV was given 06/20 AM. She was weaned off oxygen and returned to room air as tolerated. RT completed a oxygen desat study with exercise. RT determined that she does not need home O2. She is being discharged to follow-up with PCP and Cardiology. ALLERGIES Allergies Allergy/AdvReac Type Severity Reaction Status Date / Time ibuprofen AdvReac Intermediate upset Verified 06/19/25 09:04 stomach MEDICATIONS Ambulatory Orders Medication Instructions Recorded Confirmed cholecalciferol (vitamin D3) 50 100 mcg (2 x 50 mcg (2 ,000 unit)) 07/02/24 06/19/25 mcg (2,000 unit) capsule PO QDAY #30 caps flaxseed oil 1,000 mg capsule 1,000 mg PO QDAY #30 cap s 07/02/24 06/19/25 nitroglycerin 0.4 mg sublingual 0.4 mg sublingual Q5M PRN chest 07/02/24 06/19/25 tablet pain #30 tabs sotalol 80 mg tablet 80 mg PO BID #180 tabs 07/0206/19/25 apixaban 5 mg tablet (Eliquis) 5 mg PO BID #180 tabs 1 09/03/23 06/19/25 pravastatin 40 mg tablet 40 mg PO QPM #90 tabs 06/19/25 levothyroxine 75 mcg tablet 75 mcg PO QDAY #90 tabs 06/19/25 (Synthroid) magnesium oxide 400 mg PO .three times a wee k 03/21/25 06/19/25 calcium carbonate (Super Calcium) 600 mg PO BID 06/19/25 furosemide 20 mg tablet (Lasix) 20 mg PO DAILY PRN shiv ma #30 tabs 06/20/25 PHYSICAL EXAM AT DISCHARGE Vital Signs: Vital Signs x48h Temp Pulse Pulse Resp BP Pulse Ox O2 Flow Rate 06/20/25 13:38 36.9 C 76 16 131/72 H 94 06/20/25 13:05 90 06/20/25 12:54 36.7 C 74 20 131/80 H 92 06/20/25 08:05 1 06/20/25 08:02 37.1 C 77 20 149/84 H 93 1 General Appearance: positive No acute distress and Alert Respiratory: positive No respiratory distress and Breath sounds nml; negative Wheezes, Rales or Rhonchi Cardiovascular: positive Regular rate & rhythm, No murmur and No gallop; negative Friction rub Peripheral Pulses: positive 2+ Skin: positive Color nml Extremities: positive No pedal edema Neurologic/Psychiatric: positive Oriented x3 LABS 06/20/25 04:42 06/20/25 04:42 FOLLOW UP Follow Up: Follow-up with PCP and Cardiology. TIME SPENT Time Spent in Discharge (Minutes): 47 Discharge Plan Discharge Patient Disposition: Home, Self Care Condition: Stable Prescriptions: New furosemide [Lasix] 20 mg tablet 20 mg PO DAILY PRN (Reason: edema) Qty: 30 0RF Continued pravastatin 40 mg tablet 40 mg PO QPM Qty: 90 3RF levothyroxine [Synthroid] 75 mcg tablet 75 mcg PO QDAY Qty: 90 0RF calcium carbonate [Super Calcium] 600 mg calcium (1,500 mg) tablet 600 mg PO BID sotalol 80 mg tablet 80 mg PO BID Qty: 180 3RF nitroglycerin 0.4 mg tablet, sublingual 0.4 mg sublingual Q5M PRN (Reason: chest pain) Qty: 30 0RF Rx Instructions: do not exceed 3 doses per episode cholecalciferol (vitamin D3) 50 mcg (2,000 unit) capsule 100 mcg PO QDAY Qty: 30 0RF flaxseed oil 1,000 mg capsule 1,000 mg PO QDAY Qty: 30 0RF Rx Instructions: administer with a meal Eliquis 5 mg tablet 5 mg PO BID Qty: 180 3RF magnesium oxide 400 mg magnesium capsule 400 mg PO .three times a week Interventions: Belongings Inventory Last Done: 06/19/25 17:29 Discharge Last Done: 06/20/25 13:45 Discharge Checklist - Nursing Last Done: 06/20/25 13:45 Discharge Vital Signs (30 Minutes) Last Done: 06/20/25 13:38 Health Concerns: You were admitted for worsening heart failure and received intravenous furosemide and supplemental oxygen. You are now stable and ready to go home. Please follow these instructions carefully to help prevent another episode. Medications * Take furosemide (a water pill) only as prescribed. Use it as needed for symptoms of fluid overload, such as sudden weight gain, swelling in your legs or abdomen, increased shortness of breath, or needing to sleep sitting up. Do not take extra doses unless directed by your doctor. * Continue all other heart failure medications as directed. Monitoring * Weigh yourself every morning, after using the bathroom and before eating, using the same scale. Write down your weight each day. * Watch for signs of fluid buildup: rapid weight gain (more than 2-3 pounds in a day or 5 pounds in a week), swelling in your feet, ankles, or belly, trouble breathing, or needing more pillows to sleep comfortably. * If you notice these symptoms, take your as-needed furosemide dose and contact your doctor or heart failure clinic promptly. Diet and Fluids * Limit salt in your diet. Avoid processed foods and do not add extra salt to meals. * Limit fluids to about 2 liters (64 ounces) per day, unless your doctor tells you otherwise. Activity * Stay as active as you can, but rest when you feel tired. Avoid strenuous activity until cleared by your doctor. Follow-Up * Schedule a follow-up appointment with your manager purchasing within 7 days of discharge, or as soon as possible. Bring your medication list and daily weight log to the visit. * If you have questions or concerns, call your heart failure clinic or doctor. When to Seek Help * Go to the emergency room or call 911 if you have severe trouble breathing, chest pain, confusion, or fainting. Summary * Take your medications as directed. * Monitor your weight and symptoms daily. * Limit salt and fluids. * Keep your follow-up appointment. * Contact your doctor if symptoms worsen. These steps are important to help keep your heart failure under control and prevent another hospitalization. Print Language: Tristanian Patient Instructions: Heart Failure Dc Follow-up Care: Staci Clark ARNP [Primary Care Provider, Family Practice] Vitals documented within 30 minutes of discharge?: Yes (see discharge vital signs)
[2025-06-20 13:39] VITALS: BP 131/72; TEMP 98.4; O2SAT 94
== END 2025-06-20 13:50 | disposition home or self-care (01) ==
LOC: MS2 08:53 → ED 08:53 → MS2 14:48
PROVIDERS: ADMIT Nurse Practitioner Acute Care; ATTEND Nurse Practitioner Acute Care